=== PATIENT | male | born 1955 | race Caucasian/White ===

== ENCOUNTER 2018-12-28 10:32 | Inpatient (IN) ==
[2018-12-28 07:37] LABS: INR 0.95; PROTIME 12.7 Seconds (11.0-16.0)
[2018-12-28 07:38] LABS: PTT 25.6 Seconds (22.3-41.8)
--- NOTE | 2018-12-28 09:45 | Diag Imaging Result Doc PS360 ---
EXAM: CHEST-2 VIEWS 12/28/2018 HISTORY: POST BIOPSY INS/EXP TECHNIQUE: Inspiratory expiratory AP upright chest COMMENT: There is a small apical pneumothorax on the right. This is actually larger in appearance on the inspiration view than on the expiration. It measures 7 mm on the inspiration view. IMPRESSION: Small right apical pneumothorax. These findings were discussed with Dr. Laya Anna at 0935. Electronically signed by Eric Reza 12/28/2018 9:42 AM
--- NOTE | 2018-12-28 09:53 | Diag Imaging Result Doc PS360 ---
EXAM: CT GUIDED BIOPSY LUNG 12/28/2018 HISTORY: non small cell lung cancer TECHNIQUE: CT-guided biopsy of the right lower lobe. COMMENT: The risks and benefits of the procedure including the possibility of bleeding, infection, reaction to lidocaine, and pneumothorax was discussed with the patient and he agreed to the procedure. Following sterile preparation the skin posteriorly and administration of 1% lidocaine to the skin and deeper soft tissues, a coaxial 20-gauge Temno core biopsy needle was employed to obtain four cores from the lesion in the mid right lower lobe. Following the procedure the patient suffered a brief period of unresponsiveness which is most likely due to a vasovagal reaction, in any event it was at brief duration. The patient was given nasal cannula oxygen and plain radiographs were obtained demonstrating a small apical pneumothorax on the right. This finding was discussed with Dr. Laya Anna following the procedure. IMPRESSION: Successful right lower lobe biopsy complicated by small right pneumothorax. Electronically signed by Eric Reza 12/28/2018 9:51 AM
--- NOTE | 2018-12-28 11:09 | PROVIDER DOCUMENTATION ---
This chart was entered by Myriam Alvarez Scribe, acting as scribe for Leydi Allred MD. HPI-Syncope/Dizziness - General Chief Complaint: Syncope Stated Complaint: SYNCOPE Time Seen by Provider: 12/28/18 10:45 Source: patient, family () Allergies/Adverse Reactions: Patient Allergies Allergy/AdvReac Type Severity Reaction Status Date / Time levofloxacin [From Levaquin] Allergy MUSCLE Verified 12/28/18 10:40 STIFFNESS Home Medications: Home Medication List Medication Instructions Recorded Confirmed Last Taken Type ATORVAstatin [Lipitor] 40 mg PO DAILY 04/27/17 12/28/18 12/27/18 17:00 History 40 Albuterol Sulfate [Proair Hfa] 2 puff IH Q8H PRN PRN 04/27/17 12/28/18 12/27/18 20:00 History 2 Glipizide 5 mg PO DAILY 04/27/17 12/28/18 12/27/18 20:00 History 5 Iron Fum,Ps/Folic/Bcomp,C No.9 2 each PO DAILY 04/27/17 12/28/18 12/27/18 20:00 History [Integra Plus Capsule] 2 Paroxetine HCl 10 mg PO DAILY 04/27/17 12/28/18 12/27/18 20:00 History 10 Aspirin/Calcium Carbonate/Mag 325 mg PO DAILY 09/17/18 12/28/18 12/27/18 History [Aspirin Buffered 325 mg Tab] Cholecalciferol (Vit D3) [Vitamin 1,000 intl.units PO DAILY 09/17/18 12/28/18 12/27/18 20:00 History D3] 1000 Esomeprazole Magnesium [Nexium 20 mg PO DAILY 09/17/18 12/28/18 12/27/18 20:00 History 24Hr] 20 Budesonide/Formoterol Fumarate 2 puff PO BID 12/14/18 12/28/18 12/27/18 20:00 History [Symbicort 160-4.5 Mcg Inhaler] 2 Carvedilol 12.5 mg PO BID 12/14/18 12/28/18 12/27/18 20:00 History 12.5 Levothyroxine [Synthroid] 100 mcg PO DAILY 10/11/19 10/25/19 10/24/19 07:00 History 100 - History of Present Illness-Syncope/Dizzy Nature of Presenting Problem: 63 yowm was having a outpatient CT when he had a syncopal episode and became sob. post syncope it was seen pt has mild pneumothorax. pt on exam is nontoxic and in no distress Prior Episodes: reports: single episode today Onset/Duration: reports: just prior to arrival Timing: reports: improving Position/Activity at time of episode: reports: lying Context: reports: lost consciousness Loss of Consciousness: brief (seconds) Location of injury. (If syncope resulted in an injury.): reports: none Current Symptoms: reports: none/feels normal Recently Seen Here or By Another Healthcare Provider: Yes (was having outpatient CT when syncope occured) Review of Systems - Adult - REVIEW OF SYSTEMS - ADULT Constitutional: denies: chills, fever Eyes: reports: no symptoms reported Ears, Nose, Mouth & Throat: reports: no symptoms reported Cardiovascular: denies: chest pain, palpitations Respiratory: reports: see HPI, shortness of breath. denies: cough Gastrointestinal: denies: abdominal pain, diarrhea, nausea, vomiting Genitourinary: reports: no symptoms reported Musculoskeletal: reports: no symptoms reported Integumentary: reports: no symptoms reported Neurological: reports: see HPI, syncope. denies: dizziness/vertigo, headache/migraines, tremors Psychiatric: reports: no symptoms reported Endocrine: reports: no symptoms reported Hematologic/Lymphatic: reports: no symptoms reported Allergic/Immunologic: reports: no symptoms reported All Other Systems: Reviewed and Negative Past History - Adult - PAST MEDICAL HISTORY-ADULT Review of Records: reports: Old Records Reviewed, Nursing Assessment Review, Medications Reviewed, Social history reviewed & non-contributory. Major Childhood Illnesses: reports: denies history Cardiovascular: denies: HTN Respiratory: reports: COPD, cancer, pneumonia Gastrointestinal: reports: GERD Genitourinary: reports: kidney disease Musculoskeletal: reports: intervertebral disc disease Hand Dominance: Right Handed Neurological: reports: CVA, stroke deficits Psychiatric: reports: denies history Endocrine/Immune: reports: Diabetes Diabetes Type: Type 2 Other Conditions: reports: denies history - PRIOR SURGERIES/PROCEDURES Surgical/Procedure History: reports: reviewed, not pertinent - PRIOR HOSPITALIZATIONS Prior Hospitalizations: reports: none - IMMUNIZATION STATUS Childhood Immunizations: See Nurse Assessment Flu Vaccine: See Nurse Assessment - FAMILY HISTORY Family History: reviewed, not pertinent - SOCIAL HISTORY Smoking: quit greater than 1 year Substance Use: denies Living Situation: family Physical Exam-General - PHYSICAL EXAM-ADULT Initial Vital Signs Reviewed: Yes - CONSTITUTIONAL General Appearance: appears well, alert, no apparent distress (pt denies sob on exam and looks nontoxic in appearance), obese - EYES Eyes: PERRL/EOMI, pink conjunctivae - HEAD, EARS, NOSE, MOUTH & THROAT HENMT: moist mucous membranes - NECK Neck: non-tender, full range of motion, supple, normal inspection - RESPIRATORY Respiratory: chest non-tender, normal breath sounds - CARDIOVASCULAR Cardiovascular: normal peripheral pulses, regular rate, rhythm - GASTROINTESTINAL (ABDOMEN) Abdominal Exam: normal bowel sounds, non tender, soft - LYMPHATIC Lymphatic: no adenopathy - MUSCULOSKELETAL Back Exam: normal inspection, no CVA tenderness, no vertebral tenderness Extremity: normal range of motion, non-tender, normal gait, normal inspection - SKIN Integumentary: normal color, normal turgor, warm/dry - NEUROLOGIC Neurologic: grossly normal - PSYCHIATRIC Psych/Mental Status: normal mood/affect, normal thought content, normal thought process, oriented x 3 Progress - PLAN OF CARE/RESULTS Progress/Plan/Lab Results: Vital Signs - 8 hr 12/28/18 10:35 Temperature 97.9 F Pulse Rate 82 Respiratory Rate 16 Blood Pressure 167/117 O2 Sat by Pulse Oximetry 99 Laboratory Results - last 24 hr 12/28/18 10:53 POC Glucose 210 H D Orders Category Date Time Status Admit - [facility] Routine AdmDCTranf 12/28/18 11:06 Active Activity - Up Ad Georgie ORDERED Care 12/28/18 11:06 Active Neurological Check PRN Care 12/28/18 11:06 Active Vital Signs Order ROUTINE Care 12/28/18 11:06 Active Z-Document. for Tele Applied ORDERED Care 12/28/18 11:07 Active Diabetic Diet Diet 12/28/18 11:07 Active Albuterol 2.5MG/Ipratrop 0.5MG [Duoneb (A & A)] Med 12/28/18 11:30 Ordered 3 ml INH RTQ4H Morphine Med 12/28/18 11:06 Ordered 2 mg IV Q2H PRN PRN Ondansetron [Zofran] Med 12/28/18 11:06 Ordered 4 mg IV Q4H PRN PRN Aerosol Treatments Routine Oth 12/28/18 11:07 Active Aerosol Treatments Stat Oth 12/28/18 11:07 Active Oxygen Device Routine Oth 12/28/18 11:07 Active Telemetry [OM.EQ] Routine Oth 12/28/18 11:06 Active EKG [EKG] Stat Ther 12/28/18 10:39 Ordered - EKG 1 Time of EKG reading by physician:: 10:45 EKG Read and Signed by:: Leydi Allred EKG Interpretation (*Must complete 3 of following elements*): Normal Rate: 82 Rhythm: nsr Blanchard: normal QRS: normal MA Interval: normal ST Wave: normal - CONSULTS/PCP/HOSPITALIST Notification #1 *Consult/PCP/Hospitalist*: dr dalia ashley Time Discussed: 10:58 Consult Disposition: Admit Departure - Departure Date of Disposition Decision: 12/28/18 Time of Disposition Decision: 11:08 DIAGNOSIS: Vasovagal episode, Pneumothorax Disposition: ADMITTED INPATIENT 09 Certified Medical Emergency: Emergent Condition: Stable Referrals and Follow-Ups: Blake Liu MD [Primary Care Provider] - - Critical Care Note This patient required my direct & personal management of CC.: No Attestation - Physician/ BELLA Attestation Patient care was provided by Advanced Practice Provider:: No The physician spent face to face time with patient:: Yes Advanced Practice Provider documentation review:: Supervising physician onsite and consulted in the evaluation and care of this patient. The physician did have a face to face encounter with the patient. This chart was documented by the indicated scribe, (Myriam Alvarez Scribe) and accurately reflects the services I performed and decisions made by Chalino murray Mai Huu, MD, as attested by the provider's signature.
[2018-12-28] MEDS: DUONEB (A & A) INH SCH ×4 (11:49→23:07)
[2018-12-28] MEDS ORDERED: VENTOLIN HFA INH PRN (12:35)
--- NOTE | 2018-12-28 12:41 | EKG Report ---
Test Performed on : 12/28/2018 12:32:25 PM Test Reason : CAT CALL Blood Pressure : / mmHG Vent. Rate : 152 BPM Atrial Rate : 050 BPM P-R Int : 120 ms QRS Dur : 092 ms QT Int : 278 ms P-R-T Axes : 061 031 034 degrees QTc Int : 442 ms Critical Test Result: High HR Sinus bradycardia. with premature supraventricular complexes. and with occasional premature ventricul ar complexes. Otherwise normal ECG When compared with ECG of 28-DEC-2018 10:45, (Unconfirmed) premature ventricular complexes. are now present premature supraventricular complexes. are now present Vent. rate has increased BY 70 BPM Confirmed by Miki HAIDER, Reji Sanchez ([id number]) on 12/28/2018 3:08:29 PM
--- NOTE | 2018-12-28 12:41 | EKG Report ---
Test Performed on : 12/28/2018 10:45:07 AM Test Reason : SYNCOPE Blood Pressure : / mmHG Vent. Rate : 082 BPM Atrial Rate : 082 BPM P-R Int : 152 ms QRS Dur : 090 ms QT Int : 374 ms P-R-T Axes : 044 046 025 degrees QTc Int : 436 ms Normal sinus rhythm. Normal ECG When compared with ECG of 14-OCT-2015 10:50, Vent. rate has increased BY 29 BPM QT has lengthened Unconfirmed Result
[2018-12-28] MEDS ORDERED: LABETALOL IV ONE ×2 (12:44→13:00)
[2018-12-28] MEDS ORDERED: ATIVAN IV ONE (12:57)
--- NOTE | 2018-12-28 12:59 | HISTORY AND PHYSICAL ---
CHIEF COMPLAINT: Right pneumothorax. HISTORY OF PRESENT ILLNESS: This is a 63-year-old male with a history of small cell lung cancer that has been treated for several years. He recently has developed a new worsening mass in the right lung. He underwent CT-guided biopsy of this today and developed a small post biopsy pneumothorax. Currently, he complains of some pain at the needle insertion site, but denies generalized chest pain or shortness of breath. PAST MEDICAL HISTORY: 1. Small cell lung cancer. 2. Diabetes. 3. Chronic kidney disease. 4. COPD. PAST SURGICAL HISTORY: 1. Robotic partial nephrectomy. 2. Mediastinoscopy. 3. Bronchoscopy. ALLERGIES: Levaquin. HOME MEDICATIONS: 1. Albuterol. 2. Aspirin. 3. Lipitor. 4. Budesonide/formoterol. 5. Carvedilol. 6. Vitamin D3. 7. Nexium. 8. Glipizide. 9. Synthroid. 10. Paroxetine. SOCIAL HISTORY: He denies tobacco at this time, but does have an 80 pack-year history of smoking. He denies alcohol or illicit drug use. FAMILY HISTORY: Reviewed and noncontributory. SOCIAL HISTORY: Ten systems reviewed and negative except as noted above. PHYSICAL EXAMINATION: VITAL SIGNS: Temperature 97.9 degrees, pulse 82, respirations 16, blood pressure 167/117, O2 saturation 99%. GENERAL: Well-developed male in no distress who looks his stated age. HEENT: Normocephalic, atraumatic. Extraocular muscles intact. Pupils equal, round, reactive to light. Sclerae anicteric. NECK: Supple. No thyromegaly. CV: Regular rate and rhythm. RESPIRATORY: Clear bilateral breath sounds. No increased work of breathing or wheeze. ABDOMEN: Soft, nontender, nondistended. No organomegaly or mass. EXTREMITIES: No clubbing, cyanosis, or edema. SKIN: Warm and dry. No rash. MUSCULOSKELETAL: Moves all extremities equally and well. LABORATORY DATA: None. IMAGING: Post biopsy x-ray this morning shows a small 7 mm right apical pneumothorax. ASSESSMENT AND PLAN: A 63-year-old male with iatrogenic right pneumothorax after needle biopsy, history of lung cancer, new right lung mass. PLAN: Admit for observation. We will continue oxygen via nasal cannula for now. We will repeat chest x-ray this afternoon. If stable, I plan to discharge home. cc: Lyndon Frederick MD
[2018-12-28] MEDS ORDERED: ATIVAN IV PRN (13:19)
[2018-12-28] MEDS ORDERED: NS 1,000 ML ONE (13:29)
[2018-12-28] MEDS ORDERED: NS 1,000 ML IV ONE ×2 (13:50→13:52)
[2018-12-28 14:07] LABS: ALB/GLOB RATIO 1.3; ALBUMIN 3.9 g/dL (3.5-5.0); CREATININE 2.2 mg/dL (0.7-1.2); POTASSIUM 5.2 mmol/L (3.5-5.1); TOTAL BILIRUBIN 0.31 mg/dL (0.20-1.00); TOTAL PROTEIN 6.8 g/dL (6.3-8.3)
--- NOTE | 2018-12-28 14:24 | Diag Imaging Result Doc PS360 ---
EXAM: CT HEAD W/O CONTRAST 12/28/2018 HISTORY: stroke symptoms TECHNIQUE: This exam was performed using automated exposure control, adjustment of mA or kV according to patient size, and/or use of iterative reconstruction technique. COMMENT: There are lacunae present in the periventricular white matter of both parietal lobes. An particularly near the genu of the internal capsule on the right. Compared to the previous examination of 12/11/2013 there was previously some abnormal lucency in the caudate nucleus and internal capsule anteriorly on the right. The current findings may be residual from that insult. There is no evidence of bleed, mass effect, or abnormal extra-axial fluid collection. There are mucus retention cysts in the right maxillary sinus. The calvarium is intact. IMPRESSION: Chronic ischemic changes on the right. In view of the patient's symptoms and chronic changes, further evaluation with MRI may be desirable. Electronically signed by Eric Reza 12/28/2018 2:21 PM
[2018-12-28 14:42] LABS: BASO# 0.02 X1000 (0.0-0.2); BASO% 0.1 % (0.0-0.8); EOS# 0.11 X1000 (0.0-0.7); EOS% 0.6 % (0.0-10.0); HEMATOCRIT 39.9 % (42.0-52.0); HEMOGLOBIN 12.8 g/dL (14.0-18.0); IMM GRAN# 0.09 X1000 (0.0-0.04); IMM GRAN% 0.5 % (0.0-0.5); LYMPH% 9.7 % (20.5-51.1); MCH 31.6 PG (27-31); MCHC 32.1 g/dL (33-37); MCV 98.5 FL (81-99); MONO# 0.99 X1000 (0.11-0.59); MONO% 5.7 % (1.7-9.3); MPV 10.2 FL (7.4-10.4); NEUT# 14.54 X1000 (1.4-6.5); NEUT% 83.4 % (42.2-75.2); PLT 260 X1000 (130-400); RBC 4.05 XMIL (4.7-6.1); RDW 13.7 % (11.5-14.5); WBC 17.45 X1000 (4.8-10.8)
--- NOTE | 2018-12-28 14:44 | Diag Imaging Result Doc PS360 ---
EXAM: CHEST-2 VIEWS 12/28/2018 HISTORY: follow up pneumothorax TECHNIQUE: Inspiratory expiratory chest COMMENT: The right apical pneumothorax which was demonstrated at 0931 is measured at almost 8 mm on the inspiratory view which is slightly more than the 7 mm seen previously. The difference may not be significant however. There is increased opacification of the right lower lobe compared to the previous examination. This may be due to hemorrhage related to the recent biopsy. Alternately it may be due to atelectasis or pneumonia. IMPRESSION: Questionably increased small right pneumothorax. Increased density in the right lower lobe which may be due to pulmonary hematoma or atelectasis. Electronically signed by Eric Reza 12/28/2018 2:42 PM
[2018-12-28 14:49] LABS: PROTIME 13.3 Seconds (11.0-16.0)
[2018-12-28 14:50] LABS: PTT 23.9 Seconds (22.3-41.8)
[2018-12-28 15:08] LABS: URINE SOURCE CATH
[2018-12-28] MEDS: HUMALOG SUBQ SCH ×2 (15:08→21:11)
[2018-12-28 15:11] LABS: BILIRUBIN URINE NEGATIVE (NEGATIVE); BLOOD URINE NEGATIVE (NEGATIVE); COLOR YELLOW; GLUCOSE URINE NEGATIVE (NEGATIVE); KETONE URINE NEGATIVE (NEGATIVE); LEUKOCYTES URINE NEGATIVE (NEGATIVE); NITRITE URINE NEGATIVE (NEGATIVE); PROTEIN URINE 50 mg/dL (NEGATIVE); SP GRAVITY URINE 1.011; TURBIDITY URINE CLEAR (CLEAR); UROBILINOGEN URINE NORMAL (NORMAL)
[2018-12-28 15:13] LABS: UR EPITHELIAL CELLS <10 /HPF (<10); URINE BACTERIA NEGATIVE /HPF; URINE RBC <10 /HPF (<10); URINE WBC <10 /HPF (<10)
[2018-12-28] MEDS ORDERED: CEREBYX IV ONE (15:14)
[2018-12-28] MEDS ORDERED: VANCOMYCIN IV PER PHARMACY MISC SCH (15:30)
[2018-12-28] MEDS ORDERED: LABETALOL IV PRN (15:35)
[2018-12-28 15:57] LABS: CK INDEX 8.4 (0.0-2.5); CK-MB 17.82 ng/mL (0.0-5.0)
--- NOTE | 2018-12-28 15:57 | PROGRESS NOTE ---
DATE: 12/28/2018 This is an addendum to the consult note dictated by the nurse practitioner. I agree with most components of history, physical, assessment, and recommendations HISTORY OF PRESENT ILLNESS: A CAT call was called on Mr. Gonzalez as he had [id number] three episodes of seizure lasting for several seconds. I evaluated him at the bedside. He was given 2 mg of Ativan one time. When I saw him, he had already received a dose of intravenous labetalol. After which, though the initial blood pressure was more than 180 systolic, after labetalol 10 minutes later, his blood pressure had dropped down to 80 systolic, so I ordered 1 L of normal saline. Considering that he was postictal and was critical, I decided not to get the CAT scan initially and rather transfer him to ICU to stabilize him. After coming to the ICU, his blood pressure had increased to 160 and he was taken down to CT scan. The CT scan had detected old right-sided parietal lobe especially around internal capsule stroke. When I was evaluating him at the bedside, he had another generalized tonic-clonic seizure without any focality. I gave him another 2 mg of intravenous Ativan and ordered intravenous fosphenytoin. On my brief examination, he did have extensor response to Babinski on the left foot. He also had spasticity affecting mainly the left upper and left lower extremity. His pupils are bilaterally equal and reacting. I could see that he has flattening of the left-sided nasolabial fold. I discussed with his that this could possibly be a stroke leading to seizure. ASSESSMENT: 1. Recurrent generalized tonic-clonic seizure due to new vs old CVA. 2. Suspected acute right hemispheric cerebrovascular accident. 3. Lung cancer, status post lung biopsy and right-sided pneumothorax. 4. Chronic obstructive pulmonary disease with suspected aspiration pneumonitis. 5. Insulin-dependent diabetes mellitus. 6. Chronic kidney disease stage 3. 7. Profound acidosis as evidenced on basic metabolic panel. PLAN: 1. Give stat intravenous fosphenytoin and start the patient on phenytoin loading. Seizure precautions. 2. Follow up serial BMP. Start patient on bicarbonate drip. Allow permissive hypertension for at least 24 hours. 3. We will try to obtain MRI, hopefully on Monday. Currently, he is too unstable to go down for an MRI. CVA with postictal status is a relative contraindication for Alteplase. In any case, my suspicion is that his initial syncope episode in biopsy room was likely the onset of CVA and by the time he got his CT scan and I ruled out any intracranial hemorrhage as well as coagulopathy, he was out of the alteplase window. Plan of care discussed with the patient's at bedside. Her questions have been answered. CRITIC CARE TIME: More than 30 minutes of critical care time was spent taking care of this patient. cc: Alhaji Kelsey MD MTDKait
[2018-12-28] MEDS ORDERED: CEREBYX 1,500 MG in NS 100 ML IV ONE (16:00)
[2018-12-28] MEDS: ZOSYN 2.25 GM in NS 50 ML IV SCH ×2 (16:09→21:11)
[2018-12-28] MEDS: SODIUM BICARBONATE 8.4% 150 MEQ in D5W 1,000 ML IV SCH (16:31)
--- NOTE | 2018-12-28 16:47 | CONSULTATION ---
DATE OF CONSULTATION: 12/28/2018 PRIMARY CARE PHYSICIAN: Dr. Liu. ONCOLOGIST: Dr. Anna. GENERAL SURGEON: Dr. Frederick. CHIEF COMPLAINT: Patient had a outpatient lung biopsy on the right causing a small right pneumothorax, was admitted and began on arrival to the floor having seizures and became unresponsive with a blood pressure of 68/43. We were consulted for medical management. HISTORY OF PRESENTING ILLNESS: This is a 63-year-old male who presented to [facility] initially for an outpatient CT-guided biopsy of his right lung. During the procedure this morning a CAT call was initiated when patient began having difficulty breathing. Chest x-ray showed a small postop biopsy pneumothorax, was admitted to surgery initially, once he arrived up to the surgical floor he began having seizure-like activity x3 different episodes, became unresponsive, unable to answer questions. Blood pressure dropped and got as low as 68/43. He is being transferred to the intensive care unit for further evaluation and treatment and we will follow this patient throughout the remainder of his hospitalization. PAST MEDICAL HISTORY: Of small cell lung cancer, diabetes, chronic kidney disease, COPD, hypothyroidism. PAST SURGICAL HISTORY: Of a robotic partial nephrectomy, mediastinoscopy and a bronchoscopy. ALLERGIES: Levaquin. HOME MEDICATIONS: He takes ProAir 2 puff inhalation q.8 hours p.r.n., aspirin 325 mg p.o. daily, Lipitor 40 mg p.o. daily, Symbicort 160/4.5 two puffs b.i.d., Coreg 12.5 mg p.o. b.i.d., vitamin D3 1000 units p.o. daily, esomeprazole 20 mg p.o. daily, glipizide 5 mg p.o. daily, an iron with folic and B complex 2 tablets p.o. daily, Synthroid 100 mcg p.o. daily and paroxetine 10 mg p.o. daily. FAMILY HISTORY: Reviewed and noncontributory. SOCIAL HISTORY: He currently was living with family. Denies any tobacco use at this time, does have an 80 pack a year history of smoking. Denied any alcohol or illicit drug use. LABORATORY DATA: We will obtain a CBC, CMP, PT and INR, PTT, urinalysis, CT of the head without contrast, those will be reviewed when resulted. REVIEW OF SYSTEMS: Unable to obtain from patient at this time as he is unresponsive status post his seizure. PHYSICAL EXAMINATION: On arrival patient had temperature of 97.9 degrees, pulse 82, respirations 16, blood pressure was 167/117, did get as high as 216/121 then began having hypotension and dropped to 86/54, currently at 68/43.General: This is a 63-year-old male lying in the bed unable to answer any questions at this time. Reviewed medical records to obtain information and family also at bedside. HEENT: Normocephalic, atraumatic. Normal ENT inspection. Oropharynx and nares are clear. Pupils were equal, round, reactive to light. Unable to assess extraocular movements at this time. Neck: Normal inspection, normal range of motion. Lungs: Clear to auscultation bilaterally. Equal lung expansion, chest wall movement. Heart: Regular rate and rhythm. No murmurs, rubs, or gallops. Abdomen: Soft, nontender, nondistended. Bowel sounds are present x4 quadrants. Musculoskeletal: Earlier was moving all extremities well per previous H and P documentation by the surgeon. Unable to assess at this time due to his unresponsiveness status post a seizure. Neurological: Unable to obtain a neuro exam at this time. ASSESSMENT: 1. Status post right lung biopsy with a 7 mm right apical pneumothorax. 2. Seizure activity. 3. Hypotension. 4. History of small cell lung cancer. PLAN: We are going to transfer this patient to the intensive care unit, obtain a CBC, CMP, PT with INR, PTT, urinalysis, CT of the head without contrast, we are giving him a liter of fluids bolus now and will repeat if blood pressure does not improve. If after the 2nd unit bolus he does not improve on his blood pressure will start a dopamine or Levophed drip at that time. We also consulted his oncologist, Dr. Anna. Further orders after seen by attending and by consultants. We will continue to follow this patient throughout his hospitalization. Thank you for opportunity to follow this patient. Dictated by ASAD Chandra for Ashanti Kelsey MD cc: MD Ashanti Corona MD I AGREE WITH THE ABOVE MENTIONED HISTORY, ASSESSMENT AND PLAN. A DETAILED ADDENDUM REPORT HAS BEEN DICTATED BY ME. ASHANTI CELIS
[2018-12-28] MEDS ORDERED: VANCOMYCIN 2,300 MG in NS 500 ML IV ONE (17:00)
--- NOTE | 2018-12-28 17:06 | HEMO/ONC CONSULTATION ---
DATE: 12/28/2018 REQUESTING PHYSICIAN: Dr. Kelsey. REASON FOR CONSULTATION: Lung cancer. HISTORY OF PRESENT ILLNESS: Mr. Gonzalez is a 63-year-old gentleman who is well known to me for his history of stage 3 lung cancer that was treated with chemo and radiation, followed by one year of adjuvant or consolidation immunotherapy. Most recently he has been noted to have an increasing PET avid lung lesion. He is suspected to have a recurrence of his lung cancer. Bronchoscopic biopsies were previously done and nondiagnostic. After discussion of risks and side effects in the clinic, the patient was set up today for a CT guided biopsy of his right lower lobe lung lesion. He had the biopsy, which he tolerated well. Per discussion with Dr. Reza he had a vagal episode after the biopsy from which he quickly recovered. Per his sister's report, he then subsequently had some right-sided hand weakness and confusion. He was taken to the emergency room for observation in the setting of a 7 mm pneumothorax. He arrived on the floor and very quickly had an episode of seizure like activity and alteration in consciousness. He was given IV Ativan and is being stabilized at the time of consultation for transfer to the ICU. Per his sister, he was reporting some shortness of breath as well. PAST MEDICAL HISTORY: History of lung cancer diagnosed in 2017, status post chemoradiation, hypertension, diabetes, atrial fibrillation, iron deficiency, COPD, GERD, hypothyroidism, stroke in 2013, vitamin D deficiency, BPH, CKD, hypercholesterolemia. PAST SURGICAL HISTORY: Mediastinoscopy and biopsy in 2017. SOCIAL HISTORY: The patient was a former smoker. He denies any alcohol or illicit drug use. The chart was reviewed in the clinic previously. FAMILY MEDICAL HISTORY: Brother in his 60s with colon cancer and another brother in his 40s of pancreatic cancer. ALLERGIES TO MEDICATIONS: Reviewed per the chart. REVIEW OF SYSTEMS: Unable to be obtained due to the patient being sedated at the time of consultation. PHYSICAL EXAMINATION: Vital Signs: Temperature 98.6, pulse 77, blood pressure 87/46, after IV Ativan, respiratory rate is 20, 02 saturation is 98% on 2 liters via nasal cannula. Gen: Sedated man with multiple nurses and patient's sister at bedside. Eyes: Sclera Anicteric CV: RRR no m/r/g Pulm: Upper airway noise but equal bilateral breath sounds. No wheezing Gi: Abd soft, NT, ND Ext: No clubbing cyanosis or edema Neuro: Pt is sedated and responsive to touch,pain. Labs xrays reviewed 1. Stage III NSCLC: Pt with suspected intrathoracic recurrence s/p biopsy this am. No recent chemotherapy or radiation. No known evidence of distant metastatic disease. F/u on biopsy results. 2. New onset seizure activity versus stroke: Stat head CT. Continue Ativan. Transfer to ICU for monitoring. 3. PTX, small; Repeat CXR. O2 support. Monitor sats. cc: MD Alhaji Lawrence MD [facility]
[2018-12-28] MEDS: MORPHINE IV PRN (17:42)
[2018-12-28 18:13] LABS: BE -4.7 mmoll (-2.0-2.0); BLOOD TYPE VENOUS; PCO2(98.6) 41 mmHg (40-60); PO2(98.6) 26 mmHg (30-55); SAMPLE BLOOD; SAO2 50.2 % (40.0-85.0); pH(98.6) 7.32 (7.32-7.43)
[2018-12-28 18:37] LABS: CALCIUM 8.3 mg/dL (8.8-10.2); POTASSIUM 4.8 mmol/L (3.5-5.1)
[2018-12-28] MEDS: SYMBICORT 160/4.5 MICROGM INHALER INH SCH (19:32)
[2018-12-28] MEDS ORDERED: DILANTIN IV SCH (20:00)
[2018-12-28] MEDS ORDERED: COREG PO SCH (21:00)
[2018-12-28] MEDS: ATIVAN IV PRN (21:06)
--- NOTE | 2018-12-28 21:23 | Diag Imaging Result Doc PS360 ---
EXAM: CHEST-PORTABLE 12/28/2018 HISTORY: Follow up pneumothorax TECHNIQUE: AP portable at 2106 COMMENT: There is continued opacification in the right parahilar and lower lobe regions. This appears slightly worse than on the previous study at 1430. There is still a small apical pneumothorax measuring between 12 and 6 mm in thickness at the apex. This does not on average appear to be significantly larger than on the previous studies. The heart size is at the upper limits of normal in the pulmonary vascularity is somewhat prominent. IMPRESSION: 1. Stable pneumothorax. 2. Right lower lobe opacity which may be result of the recent biopsy and pulmonary hematoma. The possibility of mild pulmonary edema cannot be excluded. Electronically signed by Eric Reza 12/28/2018 9:20 PM
[2018-12-28] MEDS: NEO-SYNEPHRINE 50 MG in NS 250 ML IV SCH (22:55)
--- NOTE | 2018-12-28 23:46 | EKG Report ---
Test Performed on : 12/28/2018 11:14:16 PM Test Reason : FOllow up EKG Blood Pressure : / mmHG Vent. Rate : 114 BPM Atrial Rate : 114 BPM P-R Int : 172 ms QRS Dur : 076 ms QT Int : 318 ms P-R-T Axes : 056 063 045 degrees QTc Int : 438 ms Sinus tachycardia. Low voltage QRS Nonspecific ST abnormality Abnormal ECG When compared with ECG of 28-DEC-2018 12:32, premature ventricular complexes. are no longer present premature supraventricular complexes. are no longer present ST elevation now present in Inferior leads Confirmed by Reji Livingston MD ([id number]) on 12/29/2018 7:45:13 AM
[2018-12-29] MEDS: ATIVAN IV PRN (01:34)
[2018-12-29] MEDS ORDERED: HALDOL IV STA (02:56)
[2018-12-29] MEDS ORDERED: HALDOL IV PRN (02:57)
[2018-12-29] MEDS ORDERED: HALDOL ONE (03:06)
[2018-12-29] MEDS: DUONEB (A & A) INH SCH ×6 (03:15→23:07)
[2018-12-29] MEDS: ZOSYN 2.25 GM in NS 50 ML IV SCH ×4 (03:59→20:31)
[2018-12-29] MEDS: HUMALOG SUBQ SCH ×4 (03:59→20:31)
[2018-12-29] MEDS ORDERED: DILANTIN IV SCH (04:00)
[2018-12-29] MEDS ORDERED: NS IV SCH (04:00)
[2018-12-29 06:10] LABS: ALLEN TEST YES; BE -3.5 mmoll (-3.0-3.0); BLOOD TYPE ARTERIAL; HCO3-(ACT) 22.2 mmoll (20.0-26.0); METHB 1.1 % (0.0-1.5); O2(CT) 18.3 mL/dL (15.0-23.0); O2HB 97.5 % (95.0-99.0); PCO2(98.6) 32 mmHg (35-45); PO2(98.6) 145 mmHg (60-100); SAMPLE BLOOD; SAO2 99.9 % (95.0-100.0); SRATE 14 BPM; THB 13.2 g/dL (11.5-17.4); pH(98.6) 7.41 (7.35-7.45)
[2018-12-29 06:11] LABS: MODALITY BI PAP
[2018-12-29 06:55] LABS: ALB/GLOB RATIO 0.9; ALBUMIN 3.2 g/dL (3.5-5.0); CALCIUM 7.7 mg/dL (8.8-10.2); CREATININE 2.3 mg/dL (0.7-1.2); MAGNESIUM 1.4 mg/dL (1.5-2.7); POTASSIUM 5.5 mmol/L (3.5-5.1); TOTAL BILIRUBIN 0.48 mg/dL (0.20-1.00); TOTAL PROTEIN 6.9 g/dL (6.3-8.3)
[2018-12-29] MEDS ORDERED: LASIX IV ONE (07:00)
[2018-12-29] MEDS ORDERED: PRILOSEC PO SCH (07:00)
--- NOTE | 2018-12-29 07:19 | Diag Imaging Result Doc PS360 ---
EXAM: CHEST-PORTABLE HISTORY: Follow up pneumothorax TECHNIQUE: Single view COMPARISON: 12/28/2018 FINDINGS: There is a small right-sided pneumothorax. This measures less than 1 cm superiorly. There are dense bilateral infiltrates. These are more pronounced than on the prior study. The heart is mildly enlarged. No pleural effusions identified. IMPRESSION: Interval worsening in the dense bilateral infiltrates Electronically signed by Caleb Sabillon 12/29/2018 7:16 AM
[2018-12-29] MEDS: SYMBICORT 160/4.5 MICROGM INHALER INH SCH ×2 (07:43→19:02)
[2018-12-29] MEDS: MAGNESIUM SULFATE 2 GM/S.W.I. 2 GM/50 ML IVPB IV SCH ×2 (07:51→10:23)
[2018-12-29] MEDS: SODIUM BICARBONATE 8.4% 150 MEQ in D5W 1,000 ML IV SCH (07:52)
[2018-12-29] MEDS: MORPHINE IV PRN ×2 (08:07→17:29)
[2018-12-29] MEDS: HALDOL IV PRN ×3 (08:08→20:31)
[2018-12-29 08:48] LABS: BASO# 0.01 X1000 (0.0-0.2); BASO% 0.1 % (0.0-0.8); HEMATOCRIT 40.1 % (42.0-52.0); HEMOGLOBIN 13.1 g/dL (14.0-18.0); IMM GRAN# 0.05 X1000 (0.0-0.04); IMM GRAN% 0.3 % (0.0-0.5); LYMPH# 0.89 X1000 (1.2-3.4); LYMPH% 6.2 % (20.5-51.1); MCH 31.5 PG (27-31); MCHC 32.7 g/dL (33-37); MCV 96.4 FL (81-99); MONO# 0.97 X1000 (0.11-0.59); MONO% 6.7 % (1.7-9.3); MPV 10.5 FL (7.4-10.4); NEUT% 86.7 % (42.2-75.2); PLT 225 X1000 (130-400); RBC 4.16 XMIL (4.7-6.1); RDW 13.8 % (11.5-14.5); WBC 14.42 X1000 (4.8-10.8)
[2018-12-29] MEDS ORDERED: SYNTHROID IV ONE (08:50)
[2018-12-29] MEDS ORDERED: SODIUM CHLORIDE 0.9% INJ ONE (08:50)
[2018-12-29 08:59] LABS: LYMPHS 10 % (21-51); MONO 2 % (1-9); SEGS 88 % (42-75)
[2018-12-29] MEDS ORDERED: HEMOCYTE PLUS CAPSULE PO SCH (09:00)
[2018-12-29] MEDS ORDERED: GLUCOTROL PO SCH (09:00)
[2018-12-29] MEDS ORDERED: SYNTHROID PO SCH (09:00)
[2018-12-29] MEDS ORDERED: CALCIUM CARBONATE PO SCH (09:00)
[2018-12-29] MEDS ORDERED: ASPIRIN PO SCH (09:00)
[2018-12-29] MEDS ORDERED: LIPITOR PO SCH (09:00)
[2018-12-29] MEDS ORDERED: PAXIL PO SCH (09:00)
[2018-12-29] MEDS ORDERED: MAG PO SCH (09:00)
--- NOTE | 2018-12-29 09:02 | PROGRESS NOTE ---
DATE: 12/29/2018 INTERVAL HISTORY: He was hypotensive overnight and so phenylephrine was started on him. He has had wide fluctuations on his blood pressure with systolic dropping to as low as 80s on phenylephrine and then a few seconds jumping up to 160, so the titration of phenylephrine was a challenge. He also was becoming progressively hypoxic and did not do well on non-rebreather mask, so he was started on BiPAP. Echocardiogram and ultrasound carotids were pending. Troponin was showing down trend. EKG did not have evidence of acute ST changes. SUBJECTIVE: He is alert, confused and fidgety, moving the right upper and lower extremity more than the left upper and lower extremity. He is currently on BiPAP, has a urine catheter. He is not been able to engage in meaningful conversation. VITAL SIGNS: Temperature 98.1 degrees, pulse 118, respiratory rate 20, blood pressure 130/90. He is saturating 98% on 100% BiPAP. PHYSICAL EXAMINATION: General: He is fidgety. HEENT: Facially asymmetry is difficult to appreciate since he is fidgety and not allowing proper examination. He may have right-sided ptosis. Respiratory: He does have inspiratory crackles bilateral infrascapular regions and mild end-expiratory wheezes. Cardiovascular: S1, S2 normal, regular. No murmur, rub or gallop. Abdomen: Obese, soft, nontender. Extremities: No lower extremity edema. Neurological: Right- sided ptosis possibly. He is moving right upper and lower extremity more than left upper and lower extremity. He is alert but confused, so neurological examination is limited. LABORATORY DATA: CBC is pending. ABG today is suggestive of normal pH, low pCO2, adequate oxygenation on 100% BiPAP. BMP suggestive of hyperkalemia, elevated BUN and creatinine. He also had a troponin which increased up to 0.532 and since then has been downtrending. He also had lactic acidosis which has been fluctuating. MICROBIOLOGY: No data. IMAGING: Chest x-ray today morning suggests interval worsening in the dense bilateral infiltrate. ASSESSMENT AND PLAN: 1. Recurrent generalized tonic-clonic seizure, likely due to new versus old cerebrovascular accident without prior history of seizure. He was loaded with fosphenytoin and I will start him on maintenance phenytoin intravenously. Keep him on seizure and aspiration precautions and keep him on n.p.o. except medications. I will check a phenytoin level after 24 hours. 2. Suspected acute right hemispheric cerebrovascular accident with prior history of right hemispheric cerebrovascular accident. I will follow up with ultrasound carotid, echocardiogram and will consider either repeat head CT or MRI in the near future based on his agitation. I will start him on rectal aspirin. Enteral access has been difficult to obtain. In the future, I will consider starting him on high-dose atorvastatin. I will also consider Neurology evaluation on Monday. 3. Acute encephalopathy of unclear etiology. I would consider repeat head CT in the near future. This could be a prolonged postictal phase versus continuous seizure and accordingly, I may consider requesting a transfer to [facility] for continuous EEG monitoring if his mental status does not improve. Meanwhile, keep him on intravenous haloperidol and lorazepam as needed. 4. Acute hypoxic respiratory failure, likely due to acute pulmonary edema. There is also a possibility of pulmonary contusion post biopsy. There is also a small pneumothorax. I will keep him on BiPAP to maintain saturation more than 94% as tolerated and will consult Pulmonology. I will also keep him on intravenous vancomycin and Zosyn with close monitoring of kidney function for suspected sepsis due to aspiration pneumonia. 5. Elevated troponins: EKG now shows anterolateral ST T changes. No known h/o CAD. I will keep him on rectal aspirin a day. 5. History of chronic obstructive pulmonary disease. Continue albuterol ipratropium nebulization, budesonide, formoterol inhaler. 6. Disposition. Patient's condition is critical. More than 30 minutes of critical care time was spent taking care of the patient. Yesterday, plan of care discussed with the patient's . 7. History of recurrent lung cancer. Hematology Oncology on board. Though there is a possibility that he may have a brain metastasis, it is not completely excluded at the moment, which could have caused new onset seizures. ADDENDUM: I reevaluated patient later during the day. He is more alert and talkative. He denies known h/o CAD or current chest pain. He was able to tell me a little bit about his h/o lung cancer and that it was small cell. cc: MD VIMAL Salazar
[2018-12-29] MEDS: VITAMIN D PO SCH (09:31)
[2018-12-29] MEDS ORDERED: ASPIRIN PR ONE (10:50)
[2018-12-29] MEDS: DILANTIN IV SCH ×2 (11:48→20:31)
--- NOTE | 2018-12-29 12:58 | Diag Imaging Result Doc PS360 ---
EXAM: CT HEAD W/O CONTRAST HISTORY: left lower extremity paralysis TECHNIQUE: CT head without contrast COMPARISON: 12/28/2018 FINDINGS: No parenchymal hemorrhage. No epidural or subdural hematoma. No subarachnoid hemorrhage old right infarct. This is unchanged. No mass identified on this noncontrasted exam. No hydrocephalus. No sinus opacification. IMPRESSION: No hemorrhage. No change. This exam was performed using automated exposure control, adjustment of mA or kV according to patient size, and/or use of iterative reconstruction technique. Electronically signed by Caleb Sabillon 12/29/2018 12:55 PM
--- NOTE | 2018-12-29 13:07 | Diag Imaging Result Doc PS360 ---
EXAM: CT THORAX W/O CONTRAST HISTORY: resp. failure TECHNIQUE: CT chest without contrast COMPARISON: 11/26/2018 FINDINGS: Motion degrades image quality. There are small pleural effusions. Prominent atherosclerosis. No aortic aneurysm. No cardiomegaly. There are multiple calcified mediastinal and hilar lymph nodes. There is bibasilar pneumonia with air bronchograms as well as atelectasis. There is a 2.8 cm air-filled cavity posteriorly in the right upper lobe. Questionable sliver of a pneumothorax on the right. IMPRESSION: Bibasilar pneumonia with atelectasis and small pleural effusions and a questionable tiny right pneumothorax. This exam was performed using automated exposure control, adjustment of mA or kV according to patient size, and/or use of iterative reconstruction technique. Electronically signed by Caleb Sabillon 12/29/2018 1:04 PM
[2018-12-29] MEDS: LOVENOX SUBQ SCH (13:36)
[2018-12-29] MEDS: PROTONIX IV SCH (13:36)
--- NOTE | 2018-12-29 13:38 | EKG Report ---
Test Performed on : 12/29/2018 11:46:03 AM Test Reason : elevated troponin Blood Pressure : / mmHG Vent. Rate : 107 BPM Atrial Rate : 107 BPM P-R Int : 170 ms QRS Dur : 094 ms QT Int : 376 ms P-R-T Axes : 057 054 000 degrees QTc Int : [address] & T wave abnormality, consider anterolateral ischemia Abnormal ECG When compared with ECG of 28-DEC-2018 23:14, Questionable change in QRS duration Confirmed by Reji Livingston MD ([id number]) on 12/30/2018 7:26:59 AM
--- NOTE | 2018-12-29 13:46 | GENERAL SURGERY PROGRESS NOTE ---
DATE: 12/29/2018 SUBJECTIVE: The patient has had labile blood pressures overnight. The nurses tell me that he is more alert and interactive now. OBJECTIVE: Vital Signs: Temperature 97.5 degrees, pulse 109, respirations 29, blood pressure 147/99, O2 saturation 97%. General: He is awake, somewhat agitated and fidgety. He does follow a few commands. He will squeeze my hand. CV: Tachycardic. GI: Soft, nontender. Respiratory: Bilateral coarse breath sounds. Neuro: He squeezes both hands but is stronger in the right hand than the left. He does wiggle both feet and toes but appears more vigorous on the right. LABORATORY: White cell count 14,000, hemoglobin 13, hematocrit 40. Electrolytes reviewed and notable for BUN 26, creatinine 2.3, potassium 5.5. IMAGING: His chest x-ray today shows a stable small apical right pneumothorax. His chest CT shows only a very tiny right pneumothorax, but he does have bibasilar pneumonia. Head CT again was negative for hemorrhage or other acute abnormality. ASSESSMENT AND PLAN: A 63-year-old male with iatrogenic right pneumothorax from lung biopsy. This appears to be resolving. He has subsequently had neurologic changes and seizure. It is unclear of the etiology yet, stroke is certainly a possibility. Currently, there are no surgical plans. I will follow along at a distance and be available as needed. cc: MD Alhaji Saucedo MD
--- NOTE | 2018-12-29 15:43 | ECHO REPORT ---
ORDER DATE: 12/29/2018 INDICATION: Hypotension, hypoxia, syncope, lung cancer. FINDINGS: 1. This is an extremely difficult study with poor delineation of the endocardial borders. An estimation of the ejection fraction cannot be performed secondary to limited quality. Notably, the apex does not appear to be moving well, but again difficult to estimate the EF. Optison contrast was not used. 2. There is no mitral valve prolapse. Mild mitral regurgitation. 3. Mild tricuspid regurgitation. Insufficient data to estimate RV systolic pressure. 4. Aortic valve was not well visualized, but Doppler evaluation which was limited, did not appear to show stenosis. 5. No pericardial effusion identified. 6. The chamber sizes appear relatively normal. 7. Again, a very poor quality study. cc: MD Chyna Joiner CRNP Siddharth Patel, MD
--- NOTE | 2018-12-29 16:55 | PULMONOLOGY CONSULTATION ---
DATE: 12/29/2018 REQUESTING PHYSICIAN: Dr. Kelsey. REASON FOR CONSULTATION: Pulmonary hematoma with acute hypoxemic respiratory failure. HISTORY OF PRESENT ILLNESS: Mr. Gonzalez is a 63-year-old white male with a history of tobacco use who was diagnosed with stage III lung cancer in 2017. This was not diagnosed here and specifics of the diagnosis are not known. The patient underwent chemotherapy and radiation under the direction Dr. Marcela Anna. By chart notes, the patient has had increasing activity on his PET scan in the right lung base. The patient underwent bronchoscopy per Dr. Carroll on 12/17/2018, which was nondiagnostic. He underwent a CT-guided biopsy yesterday morning. Following the procedure, he had brief episode of unconsciousness. The patient had a small pneumothorax. He subsequently had seizures on the floor along with hypotension. He was transferred to the ICU. He has required vasopressors for hypotension. He has had increasing oxygen requirements and was placed on BiPAP. Upon my arrival, he was taken off the BiPAP. He is conversant now. He is oriented. He cannot move his left lower extremity. PAST MEDICAL HISTORY: 1. Lung cancer as per HPI. 2. History of prior stroke with weakness in the left hand. 3. COPD. 4. Gastroesophageal reflux disease. 5. Chronic kidney disease. 6. Diabetes mellitus. 7. History of atrial fibrillation. 8. Dyslipidemia. 9. Partial nephrectomy for a benign cyst. SOCIAL HISTORY: The patient has an [id number] history for tobacco. No alcohol use. FAMILY HISTORY: Noncontributory current presentation. REVIEW OF SYSTEM: Limited due to current physical status. PHYSICAL EXAMINATION: Reveals a chronically ill-appearing male who appears older than his stated age of 63. BP 153/85, heart rate 108, respiratory rate 34, oxygen saturation 98% on nonrebreather.HEENT: Pupils are equal and reactive. Oropharynx appears clear. Neck: Supple. Chest: Reveals decreased breath sounds both lung bases. Cardiac: S1, S2. Abdomen: Soft. Extremities: Reveal slight coolness to the touch. LABORATORIES: Troponins have been elevated. Initial troponin yesterday was 0.304 and increased to 0.519 last evening. Arterial blood gas yesterday revealed a lactate of 4.0. Arterial blood gas today reveals a pH 7.41, pCO2 of 32, PO2 of 145. Urgent CAT scan ordered by this practitioner reveals bibasilar pneumonia with tiny right pneumothorax. Repeat CT scan of the head reveals no acute changes. IMPRESSION: A 63-year-old status post treatment for lung cancer with increasing activity on PET scan, status post CT-guided biopsy. The patient has: 1. Small iatrogenic pneumothorax which clinically is not currently significant. 2. Seizures. 3. Acute hypoxemic respiratory failure. 4. Aspiration pneumonia. 5. Acute stroke with paralysis left lower extremity. 6. Myocardial ischemia with increased troponin levels. DISCUSSION: 63-year-old with problems outlined above. The patient is critically ill with multiple issues outlined above. RECOMMENDATIONS: 1. Aspirin this morning. 2. Continue oxygen for hypoxemic respiratory failure. The patient is at high risk for intubation and mechanical ventilation. 3. Initiate heparin for stroke and for myocardial ischemia. 4. Routine bronchodilators. 5. Routine gastric acid suppression. 6. Insulin for hyperglycemia. 7. Overall prognosis is guarded. TIME SPENT: Critical care management 1 hour. cc: MD Alhaji Fischer MD
[2018-12-29 18:54] LABS: CALCIUM 7.7 mg/dL (8.8-10.2); CREATININE 2.5 mg/dL (0.7-1.2); POTASSIUM 3.8 mmol/L (3.5-5.1)
[2018-12-29] MEDS: NEO-SYNEPHRINE 50 MG in NS 250 ML IV SCH (20:31)
[2018-12-30] MEDS: HALDOL IV PRN ×3 (01:15→16:57)
[2018-12-30] MEDS: HUMALOG SUBQ SCH ×4 (02:15→20:01)
[2018-12-30] MEDS: LOVENOX SUBQ SCH ×2 (02:15→12:19)
[2018-12-30] MEDS: DUONEB (A & A) INH SCH ×6 (03:30→23:30)
[2018-12-30] MEDS: ZOSYN 2.25 GM in NS 50 ML IV SCH ×4 (04:17→20:03)
[2018-12-30] MEDS: DILANTIN IV SCH ×3 (04:17→20:01)
[2018-12-30] MEDS: VANCOMYCIN 1,850 MG in NS 500 ML IV SCH (05:49)
[2018-12-30] MEDS ORDERED: NS IV SCH (06:00)
[2018-12-30] MEDS ORDERED: DILANTIN IV SCH ×2 (06:00)
[2018-12-30] MEDS: SYNTHROID IV SCH (06:15)
[2018-12-30] MEDS: MORPHINE IV PRN ×4 (06:26→17:17)
--- NOTE | 2018-12-30 07:03 | Diag Imaging Result Doc PS360 ---
EXAM: CHEST-PORTABLE 12/30/2018 HISTORY: dyspnea TECHNIQUE: AP portable at 0513 COMMENT: There is perihilar alveolar opacity bilaterally and increased interstitial opacity consistent with pulmonary edema. The lungs are not as well-expanded as on 12/29/2018. There is apparently some pleural fluid on the right which has occupied the space which was previously a small apical pneumothorax on the right. IMPRESSION: Pulmonary edema. Small right pleural effusion. Electronically signed by Eric Reza 12/30/2018 7:01 AM
[2018-12-30 07:05] LABS: BASO# 0.01 X1000 (0.0-0.2); BASO% 0.1 % (0.0-0.8); HEMOGLOBIN 12.3 g/dL (14.0-18.0); IMM GRAN# 0.03 X1000 (0.0-0.04); IMM GRAN% 0.2 % (0.0-0.5); LYMPH# 0.74 X1000 (1.2-3.4); LYMPH% 4.4 % (20.5-51.1); MCH 31.3 PG (27-31); MCHC 32.4 g/dL (33-37); MCV 96.7 FL (81-99); MONO# 1.03 X1000 (0.11-0.59); MONO% 6.1 % (1.7-9.3); MPV 10.8 FL (7.4-10.4); NEUT# 15.04 X1000 (1.4-6.5); NEUT% 89.2 % (42.2-75.2); PLT 197 X1000 (130-400); RBC 3.93 XMIL (4.7-6.1); RDW 13.9 % (11.5-14.5); WBC 16.85 X1000 (4.8-10.8)
[2018-12-30] MEDS: SYMBICORT 160/4.5 MICROGM INHALER INH SCH ×2 (07:45→19:52)
[2018-12-30 07:47] LABS: CALCIUM 8.3 mg/dL (8.8-10.2); CREATININE 2.3 mg/dL (0.7-1.2); POTASSIUM 4.3 mmol/L (3.5-5.1)
[2018-12-30 08:06] LABS: BANDS 6 % (0-1); LYMPHS 10 % (21-51); MONO 4 % (1-9); SEGS 80 % (42-75)
[2018-12-30] MEDS ORDERED: LASIX IV ONE (08:15)
[2018-12-30] MEDS: VITAMIN D PO SCH (08:37)
[2018-12-30] MEDS: SOLU-MEDROL IV SCH (08:37)
[2018-12-30] MEDS: ASPIRIN PR SCH (08:37)
[2018-12-30 08:51] LABS: ALLEN TEST YES; BE 0.5 mmoll (-3.0-3.0); BLOOD TYPE ARTERIAL; HCO3-(ACT) 25.1 mmoll (20.0-26.0); METHB 1.2 % (0.0-1.5); MODALITY VENTIMASK; O2(CT) 18.9 mL/dL (15.0-23.0); O2HB 91.6 % (95.0-99.0); PCO2(98.6) 37 mmHg (35-45); PO2(98.6) 61 mmHg (60-100); SAMPLE BLOOD; SAO2 94.4 % (95.0-100.0); THB 14.7 g/dL (11.5-17.4); pH(98.6) 7.43 (7.35-7.45)
--- NOTE | 2018-12-30 10:02 | PROGRESS NOTE ---
DATE: 12/30/2018 INTERVAL HISTORY: No acute events overnight. He was started on aspirin since his EKG had anterolateral T-wave inversions. He became a little more alert, though he was fidgety and restless, requiring restraints. He was kept on Ventimask. SUBJECTIVE: In the morning time, he is still in restraints. He is answering questions appropriately. He states he is hungry. However, he is very fidgety and keeps moving inside the bed, trying to come out of bed intermittently. OBJECTIVE: Vital Signs: He has been afebrile, temperature of 98.4 degrees, pulse 114, respiratory rate 32, blood pressure 92/59, he is saturating 94% on 50% Ventimask. HEENT: Oral cavity has some coffee-ground sputum. Lungs: He has air entry bilaterally equal. He does have end-expiratory wheezes, more pronounced on the right inframammary region, and inspiratory crackles. Cardiovascular: S1, S2 normal. Regular. Tachycardic. No murmur, rub, or gallop. EKG has anterolateral T-wave inversions. Abdomen: Obese, soft, nontender. I could not appreciate bowel sounds. He does not have lower extremity edema. He has urine catheter. He has dorsiflexion on plantar reflex. Reflexes are 2+ bilaterally. He withdraws to painful stimuli, all extremities, more on the right than on the left. LABORATORY DATA: Labs suggestive of leukocytosis, normocytic anemia, normal platelet count. ABG suggestive of PO2 of 61 on 50% Ventimask. BMP suggestive of chronic kidney disease stage III to stage IV. Acceptable range of blood glucose. His TSH was 6.08. Phenytoin levels were within acceptable range. MICROBIOLOGY: No positive microbiological data. IMAGING: Imaging this morning suggests pulmonary edema, small right pleural effusion. Head CT yesterday did not have any hemorrhage or any change from the prior. Chest CT had bibasilar pneumonia with atelectasis and small pleural effusion and questionable right tiny pneumothorax. ASSESSMENT AND PLAN: 1. Recurrent generalized tonic-clonic seizure, likely due to new versus old cerebrovascular accident, without prior history of seizure. He was loaded with fosphenytoin, and since then on intravenous maintenance phenytoin. Continue seizure and aspiration precautions, as well as lorazepam as needed. 2. Suspected acute right hemispheric cerebrovascular accident with prior history of right hemispheric cerebrovascular accident. Head CT has not shown any cerebrovascular accident, though it was done within 48 hours. I will consider getting an MRI of his brain versus a repeat CT scan tomorrow. Followup ultrasound carotid. Echocardiogram was of poor quality. Continue rectal aspirin. Continue enoxaparin for deep venous thrombosis prophylaxis, as well as blood sugar control with insulin sliding scale. Even with restraints, my fear is that he may pull out nasogastric tube. However, I will consider putting in one in the future, and start him on high-dose atorvastatin. 3. Acute encephalopathy with episodes of agitation. This is likely toxic metabolic encephalopathy. He intermittently becomes alert and he is answering questions appropriately, though he is restless in the bed. My suspicion of status epilepticus is extremely low at the moment. I will give him haloperidol and lorazepam as needed. 4. Acute hypoxic respiratory failure due to acute pulmonary edema and bilateral aspiration pneumonia. Continue intravenous antibiotics. Follow up blood culture, and give additional dose of intravenous Lasix. 5. Myocardial ischemia. He does not have known history of coronary artery disease. Will keep him on rectal aspirin. It appears that he has involvement of left upper and left lower extremity because of his cerebrovascular accident, which led to seizure, so I have not started him on a very high dose of anticoagulation at the moment. I will appreciate Cardiology recommendation. Considering his hypotension, which could be because of sepsis or myocardial ischemia, he has not been on any beta farnaz or angiotensin-converting enzyme inhibitors. 6. History of chronic obstructive pulmonary disease with mild exacerbation. Continue albuterol/ipratropium nebulization, budesonide, formoterol inhaler, as well as intravenous steroids, which I will start today. 7. History of recurrent lung cancer. He is suspected to have recurrence of his lung cancer. He is status post CT-guided biopsy with residual right-sided pneumothorax. Surgical team and Oncology on board. 8. Disposition. His condition is critical. More than 30 minutes of critical care time were spent in taking care of this patient. Plan of care discussed with the patient. I will keep the family updated. cc: Alhaji Kelsey MD MTDD
--- NOTE | 2018-12-30 10:14 | Diag Imaging Result Doc PS360 ---
EXAM: ABDOMEN FLAT/UPRIGHT 12/30/2018 HISTORY: Rule out SBO/Constipatiob TECHNIQUE: Flat and upright abdomen COMMENT: There is stool throughout much of the colon including the rectosigmoid colon. The stomach is not distended. The small bowel is not distended. There is no evidence of organomegaly or mass. IMPRESSION: Constipation. Electronically signed by Eric Reza 12/30/2018 10:11 AM
[2018-12-30] MEDS: DULCOLAX PR SCH ×3 (10:53→20:02)
[2018-12-30] MEDS: SODIUM CHLORIDE 0.9% INJ SCH (12:19)
[2018-12-30] MEDS: PROTONIX IV SCH (12:19)
--- NOTE | 2018-12-30 13:22 | CARDIOLOGY CONSULTATION ---
DATE: 12/30/2018 CHIEF COMPLAINT ON PRESENTATION: The patient had an outpatient lung biopsy. He subsequently developed a pneumothorax and seizures, and was subsequently admitted. HISTORY OF PRESENT ILLNESS: Mr. Gonzalez is a 63-year-old male who presented for an outpatient CT- guided biopsy of the right lung. During the course of the procedure, he had some shortness of breath. He had a small postprocedural pneumothorax, and was admitted initially. He had resultant seizure activity afterwards, became unresponsive, and there was concern for stroke-like symptoms as well. We are consulted regarding an echocardiogram that he had done yesterday, which showed a significant reduction in his EF. PAST MEDICAL HISTORY: Significant for: 1. Small-cell lung cancer, followed by [facility]. 2. Hypertension. 3. Hyperlipidemia. 4. Type 2 diabetes. 5. 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 6. COPD. SOCIAL HISTORY: Previous smoker. Reports he quit roughly 20 years ago. No current alcohol use. FAMILY HISTORY: Hypertension. REVIEW OF SYSTEMS: A 10-system review of systems is negative, except for those things mentioned in the HPI. PHYSICAL EXAMINATION: Vital Signs: The patient is afebrile. His heart rates have been elevated in the 100s to 120s. His blood pressure is 120/68. O2 saturation is 94% with Venturi mask. General: He is in no acute distress. He answers all questions appropriately, but he is a little bit fidgety. Reportedly, his mental status has cleared significantly. HEENT: Oropharynx is moist. Poor dentition. Eye examination shows pink conjunctiva, white sclerae. Neck: No obvious thyromegaly or thyroid tenderness. Cardiovascular: He sounds to be in a tachycardic, but regular rhythm. He has no obvious murmurs. He has no S3. Extremities: He has no lower extremity edema. He has warm and well perfused extremities. Chest: Coarse breath sounds bilaterally. No increased work of breathing. Abdomen: Soft, nontender, nondistended. He has no obvious organomegaly. Skin: Warm and dry throughout without any rashes. Neurological: He seems to be moving all extremities well. He has some deficits in his left hand as far as being able to open his hand, but apparently those were some of the symptoms that he had at the time of his previous stroke. Psychiatric: He keeps his eyes closed during most of the examination, except when told to open them. He follows commands. He answers questions appropriate. DATA: A CT of his head showed chronic ischemic changes on the right. No acute findings noted. He had a chest x-ray today showing pulmonary edema and a small right pleural effusion. His abdomen x-ray shows some evidence of constipation. He had an EKG done yesterday that demonstrated some ST-segment changes in V2 and V3. No apparent reciprocal changes. He has some biphasic T- waves there. His previous electrocardiogram on 12/28/2018 shows sinus rhythm, no real ischemic changes or abnormalities. His EKG earlier on presentation shows sinus tachycardia, rate of 152 beats per minute, very difficult to examine EKG. Baseline is difficult. Probable sinus tachycardia identified. His echocardiogram was difficult yesterday. His ejection fraction was significantly reduced. Repeat of the study today with Optison contrast shows a dyskinetic apex with a more hyperdynamic base. Appears probable most consistent with a Takotsubo-type phenomenon. No LV thrombus was identified. Chest CT showed a bibasilar pneumonia with some atelectasis and small pleural effusions. LABORATORY DATA: White count 16.8, his hematocrit is 38, his platelet count is 197,000. He does have a small bandemia. His sodium is 150, potassium 4.3, BUN 28, creatinine is 2.3. Compared to previous in 09/2018, his creatinine was 1.9. In 2017, he had creatinines well into the 2's. It appears he is probably at his baseline. His troponin initially was 0.304, peaked at 0.532, and currently is coming down at 0.435. ASSESSMENT: Mr. Gonzalez is a 63-year-old gentleman who presented for an outpatient procedure with a CT-guided biopsy of his lung. He suffered a pneumothorax and has probably had seizure activity as well as a stroke. PLAN: At this point, I will put him on a very small dose of beta-farnaz 12.5 orally every 6 hours. We will likely pursue cardiac catheterization in the near future to delineate his coronary anatomy. He does not seem to be having any current ischemic pain, and denies any chest pain earlier in the hospitalization. I will reorder an EKG for today, as well as in the morning. He is on aspirin. We will continue from this point. His Echo findings could be explained by a Takotsubo type cardiomyopathy. cc: MD Alhaji Joiner MD MTDD
[2018-12-30] MEDS: LOPRESSOR PO SCH ×2 (13:23→20:01)
--- NOTE | 2018-12-30 16:14 | ECHO REPORT ---
ORDER DATE: 12/30/2018 INDICATION: Reduced LV function. Evaluate for thrombus. FINDINGS: Limited echocardiogram with 2 dimensional images obtained and injection of Optison contrast. On injection of Optison there was dyskinesis of the apex. Hyperdynamic contraction noted at the base of the left ventricle. There was swirling of contrast in the apex consistent with a low-flow state but there was no clear evidence of organized thrombus. The EF is estimated in the range of 20-25%. cc: MD Alhaji Joiner MD [facility]
--- NOTE | 2018-12-30 16:57 | PULMONOLOGY PROGRESS NOTE ---
DATE: 12/30/2018 SUBJECTIVE: The patient is arousable. He denies specific complaints. He is oriented. He cannot move his left lower extremity. OBJECTIVE: Vital Signs: The patient has been afebrile for the last 24 hours. Blood pressure 146/58, heart rate 112, respiratory rate 24, oxygen saturation 95% on 50% FiO2. HEENT: Pupils are equal and reactive. Oropharynx appears clear. Neck is supple. Chest reveals diminished breath sounds in both lung bases with scattered rhonchi. Cardiac: S1, S2. Abdomen is soft. Extremities are without edema. DIAGNOSTIC STUDIES: Chest x-ray reveals shallow inspiration with pulmonary edema and small right- sided pleural effusion. White blood count 16.9, hemoglobin 12.3, platelet 197,000. Sodium 150, potassium 4.3, chloride 107, bicarbonate 22, BUN 28, creatinine 2.3, glucose 157. IMPRESSION: 1. Increased activity on PET scan of the thorax with history of lung cancer status post. 2. Small iatrogenic pneumothorax associated with a biopsy. This does not appear to be evident on current exam. 3. Seizure. 4. Acute hypoxemic respiratory failure. 5. Aspiration pneumonia. 6. Acute stroke with paralysis. 7. Myocardial ischemia. 8. Hypernatremia. DISCUSSION: A 63-year-old with problems outlined above. He remains critically ill and will need to continue to be managed in the ICU. PLAN: 1. Agree with Cardiology evaluation, as you have done. 2. Continue oxygen for hypoxemic respiratory failure. He may require BiPAP or mechanical ventilation. 3. Continue reduced-dose Lovenox for: A. Stroke prophylaxis. B. DVT prophylaxis. C. Myocardial ischemia. 4. Gentle fluid resuscitation, given hypernatremia. 5. Continue ICU monitoring. TIME SPENT IN CRITICAL CARE MANAGEMENT: 30+ minutes. cc: MD Alhaji Fischer MD
[2018-12-30] MEDS: D5W 1,000 ML IV SCH (17:04)
--- NOTE | 2018-12-30 17:20 | EKG Report ---
Test Performed on : 12/30/2018 06:11:16 AM Test Reason : Follow up ST T changes Blood Pressure : / mmHG Vent. Rate : 118 BPM Atrial Rate : 118 BPM P-R Int : 160 ms QRS Dur : 084 ms QT Int : 378 ms P-R-T Axes : 029 067 -20 degrees QTc Int : [address] & T wave abnormality, consider anterolateral ischemia Prolonged QT Abnormal ECG When compared with ECG of 29-DEC-2018 11:46, (Unconfirmed) T wave inversion more evident in Lateral leads Confirmed by Reji Livingston MD ([id number]) on 12/31/2018 3:30:11 PM
[2018-12-30] MEDS: NEO-SYNEPHRINE 50 MG in NS 250 ML IV SCH (17:27)
[2018-12-31] MEDS: LOVENOX SUBQ SCH ×3 (01:55→15:30)
[2018-12-31] MEDS: LOPRESSOR PO SCH ×5 (01:55→20:09)
[2018-12-31] MEDS: NEO-SYNEPHRINE 50 MG in NS 250 ML IV SCH ×5 (01:57→23:56)
[2018-12-31] MEDS: HUMALOG SUBQ SCH ×4 (01:59→20:25)
[2018-12-31] MEDS: ZOSYN 2.25 GM in NS 50 ML IV SCH ×4 (02:00→20:12)
[2018-12-31] MEDS: DUONEB (A & A) INH SCH ×6 (03:51→23:29)
[2018-12-31] MEDS ORDERED: LASIX IV ONE (03:55)
[2018-12-31] MEDS: DULCOLAX PR SCH ×5 (05:23→20:12)
[2018-12-31] MEDS: DILANTIN IV SCH ×3 (05:23→20:11)
[2018-12-31] MEDS: SYNTHROID IV SCH (06:27)
--- NOTE | 2018-12-31 06:57 | Diag Imaging Result Doc PS360 ---
CHEST-PORTABLE - 12/31/2018 INDICATION: dyspnea COMPARISON: 12/30/2018 FINDINGS: There has been worsening in the bilateral relatively dense alveolar infiltrates. Stable cardiomegaly and pulmonary vascular congestion. No pneumothorax or large pleural effusion. IMPRESSION: Worsening bilateral infiltrates. Electronically signed by Don Nath 12/31/2018 6:55 AM
--- NOTE | 2018-12-31 07:35 | EKG Report ---
Test Performed on : 12/31/2018 07:02:44 AM Test Reason : FOllow up anterolateral ST T changes Blood Pressure : / mmHG Vent. Rate : 107 BPM Atrial Rate : 107 BPM P-R Int : 154 ms QRS Dur : 092 ms QT Int : 342 ms P-R-T Axes : -02 -12 075 degrees QTc Int : 456 ms Sinus tachycardia. T wave abnormality, consider anterolateral ischemia Abnormal ECG When compared with ECG of 30-DEC-2018 16:15, (Unconfirmed) Questionable change in QRS axis T wave inversion no longer evident in Inferior leads QT has shortened Confirmed by Miki HAIDER, Reji Sanchez ([id number]) on 12/31/2018 3:31:24 PM
--- NOTE | 2018-12-31 07:37 | EKG Report ---
Test Performed on : 12/30/2018 4:15:46 PM Test Reason : troponin elevation Blood Pressure : / mmHG Vent. Rate : 105 BPM Atrial Rate : 105 BPM P-R Int : 178 ms QRS Dur : 094 ms QT Int : 404 ms P-R-T Axes : 058 071 -75 degrees QTc Int : 533 ms Sinus tachycardia. T wave abnormality, consider inferior ischemia T wave abnormality, consider anterolateral ischemia Prolonged QT Abnormal ECG When compared with ECG of 30-DEC-2018 06:11, (Unconfirmed) T wave inversion more evident in Inferior leads Confirmed by Reji Livingston MD ([id number]) on 12/31/2018 3:31:09 PM
[2018-12-31 08:27] LABS: BASO# 0.01 X1000 (0.0-0.2); CALCIUM 8.2 mg/dL (8.8-10.2); CREATININE 2.1 mg/dL (0.7-1.2); EOS# 0.01 X1000 (0.0-0.7); HEMATOCRIT 40.9 % (42.0-52.0); HEMOGLOBIN 13.1 g/dL (14.0-18.0); IMM GRAN# 0.06 X1000 (0.0-0.04); IMM GRAN% 0.3 % (0.0-0.5); LYMPH# 1.16 X1000 (1.2-3.4); LYMPH% 5.2 % (20.5-51.1); MCH 31.3 PG (27-31); MCV 97.6 FL (81-99); MONO# 1.53 X1000 (0.11-0.59); MONO% 6.8 % (1.7-9.3); MPV 11.3 FL (7.4-10.4); NEUT# 19.62 X1000 (1.4-6.5); NEUT% 87.7 % (42.2-75.2); PLT 224 X1000 (130-400); POTASSIUM 4.1 mmol/L (3.5-5.1); RBC 4.19 XMIL (4.7-6.1); RDW 14.1 % (11.5-14.5); WBC 22.39 X1000 (4.8-10.8)
--- NOTE | 2018-12-31 08:40 | CARDIOLOGY PROGRESS NOTE ---
DATE: 12/31/2018 SUBJECTIVE: Mr. Gonzalez reports he feels a little bit better this morning after some shortness of breath apparently last night. He had some Lasix, it looks like, that was ordered this morning around 4 a.m. PHYSICAL EXAMINATION: Vital Signs: The patient is afebrile. His heart rates are running predominantly in the low 100s. His blood pressure is 131/67. General: He is in no acute distress. Cardiovascular: He is in a tachycardic, but regular rhythm. He has no murmurs. He has no lower extremity edema. Chest: Has some diffuse bilateral rales. No increased work of breathing. He is on Ventimask. Abdomen: Soft, nontender. PERTINENT DATA: He has no new laboratory data today. ASSESSMENT: Mr. Gonzalez is a 63-year-old gentleman who presented with a stroke and seizure following a biopsy. PLAN: At this point, his x-ray looks worse. His echo appears most consistent with a Takotsubo- type phenomenon. He has no clear evidence of LV clot. He got some diuretic last night. I will order 60 IV of Lasix daily, starting today. Laboratories have been ordered. cc: MD Alhaji Joiner MD
[2018-12-31 08:44] LABS: MAGNESIUM 1.5 mg/dL (1.5-2.7)
[2018-12-31] MEDS: SYMBICORT 160/4.5 MICROGM INHALER INH SCH ×2 (08:45→20:00)
[2018-12-31 08:56] LABS: BANDS 4 % (0-1); LYMPHS 4 % (21-51); MONO 2 % (1-9); SEGS 90 % (42-75)
[2018-12-31] MEDS: SOLU-MEDROL IV SCH (09:28)
[2018-12-31] MEDS: LASIX IV SCH (09:28)
[2018-12-31] MEDS: ASPIRIN PR SCH (09:29)
[2018-12-31] MEDS: VITAMIN D PO SCH (09:29)
[2018-12-31 09:41] LABS: ALLEN TEST YES; BE 4.2 mmoll (-3.0-3.0); BLOOD TYPE ARTERIAL; HCO3-(ACT) 28.1 mmoll (20.0-26.0); METHB 1.4 % (0.0-1.5); O2(CT) 16.6 mL/dL (15.0-23.0); O2HB 93.7 % (95.0-99.0); PCO2(98.6) 34 mmHg (35-45); PO2(98.6) 69 mmHg (60-100); SAMPLE BLOOD; SAO2 96.9 % (95.0-100.0); THB 12.6 g/dL (11.5-17.4); pH(98.6) 7.51 (7.35-7.45)
[2018-12-31 09:43] LABS: MODALITY VENTIMASK
--- NOTE | 2018-12-31 10:12 | PROGRESS NOTE ---
DATE: 12/31/2018 INTERVAL HISTORY: No acute events overnight. The patient has become more alert and talkative. He has been off restraints. His chest x-ray suggested worsening infiltrate and cardiology team has already started him on intravenous Lasix. SUBJECTIVE: He is tachypneic, tachycardic, and he answers all questions appropriately. He is a little fidgety, though. VITALS: Temperature of 98.6 degrees, pulse 110, respiratory rate 21, blood pressure 130/67. He is saturating 95% on 15 L Venturi mask. PHYSICAL EXAMINATION: He denies any chest pain. He is feeling a little short of breath. Oral cavity is otherwise moist. Air entry, he has diffuse crackles, bilateral inframammary region, with decreased air entry. S1, S2 normal. Tachycardic. No murmur, rub, or gallop. Abdomen is obese, soft, nontender. He does not have any lower extremity edema. He does not have any documented bowel movement so far. Neurological Examination: He has right-sided ptosis, flattening of nasolabial fold on the left side. He has hypertonia of left upper and left lower extremity. His power is intact on right upper and lower extremity. LABS: Suggestive of worsening leukocytosis, normocytic anemia, normal platelet count. He also had mild wheezing on examination. His sodium appears to be better. He does have elevated BUN and stable creatinine. He also had hypophosphatemia and hypomagnesemia, which I will replace. ASSESSMENT AND PLAN: 1. Acute hypoxic respiratory failure and suspected septic shock due to bilateral pneumonia. Continue oxygenation to maintain saturation more than 90%, DuoNebs,and IV steroids for suspected acute chronic obstructive pulmonary disease exacerbation. Blood culture has not shown any growth to date. I will order a sputum culture if the patient can coordinate. He is at high risk of going to noninvasive ventilation versus BiPAP versus intubation. I will continue phenylephrine to maintain MAP more than 65 mmHg. 2. Suspected Takotsubo cardiomyopathy without prior known history of coronary artery disease. He did have anterolateral T-wave inversions on electrocardiogram and elevated troponins. Repeat echocardiogram result is pending. Cardiology team on board and currently recommends beta farnaz and diuretics. He may eventually need coronary angiography. I will keep him on daily aspirin per rectally. 3. Recurrent generalized tonic-clonic seizure, likely due to a new versus old cerebrovascular accident versus brain metastasis secondary to lung cancer, without prior history of seizure. He was loaded with intravenous fosphenytoin and I will continue intravenous maintenance phenytoin. If he is stable enough, I will get the MRI of the brain and MR angiography. Otherwise, I will consider repeat head CT. I will consult neurology today. He also had a prior history of cerebrovascular accident on the right hemisphere. I will continue him on aspirin. Ultrasound, carotid official report, and repeat echocardiogram results are pending. 4. Acute encephalopathy with episodes of agitation, likely in the setting of sepsis, cerebrovascular accident, and postictal phenomenon from his recurrent generalized tonic-clonic seizure, now improving. I will give him haloperidol and lorazepam as needed. 7. History of recurrent lung cancer, status post a CT-guided biopsy. His pneumothorax has essentially resolved. Surgery and oncology team on board. 8. Disposition. His condition is critical. More than 30 minutes of critical care time were spent on taking care of this patient. Continue to monitor the patient in the ICU. In summary, Mr. Gonzalez is a 63-year-old, individual who was initially getting a right- sided CT-guided lung biopsy outpatient when he had an episode of syncope and a CAT call was called. Later on, he was taken to the emergency room and the patient's sister had noticed that he was moving his left upper extremity less than before. Chest x-ray performed in the emergency room had detected a small right-sided pneumothorax, so he was admitted under surgery service for observation. However, as soon as he came on the floor, he started having generalized tonic-clonic seizure which triggered another CAT call on the floor. Medicine team was consulted and I immediately transferred him to the intensive care unit. He was started on antiseizure medication. At the time of my evaluation, he has noticeable findings of decreased left upper and lower extremity movement, hypertonia, as well as a positive Babinski sign, with right- sided ptosis and left-sided flattening of the nasolabial fold, suspicious of a new right-sided hemispheric cerebrovascular accident. However, he was, by that time, already out of 4.5 hours of a window for tPA he was having recurrent seizure which was a relative contraindication for tPA. He was managed conservatively. Later on, he had started becoming hypotensive and x-ray had suggested pneumonia. He was started on phenylephrine for suspected septic shock with antibiotics and then he had started developing myocardial ischemia. The patient's sister has been kept informed of his critical course so far. cc: Alhaji Kelsey MD [facility]
[2018-12-31] MEDS: D5W 1,000 ML IV SCH (10:14)
[2018-12-31 10:20] LABS: CALCIUM 7.7 mg/dL (8.8-10.2); CREATININE 2.3 mg/dL (0.7-1.2); POTASSIUM 3.9 mmol/L (3.5-5.1)
[2018-12-31] MEDS ORDERED: NS 250 ML ONE (10:25)
--- NOTE | 2018-12-31 10:28 | EKG Report ---
Test Performed on : 12/31/2018 09:57:46 AM Test Reason : A-Fib RVR Blood Pressure : / mmHG Vent. Rate : 146 BPM Atrial Rate : 159 BPM P-R Int : 000 ms QRS Dur : 086 ms QT Int : 330 ms P-R-T Axes : 000 068 -49 degrees QTc Int : 514 ms Atrial fibrillation. with rapid ventricular response. ST & T wave abnormality, consider inferior ischemia ST & T wave abnormality, consider anterolateral ischemia Abnormal ECG When compared with ECG of 31-DEC-2018 09:56, (Unconfirmed) Atrial fibrillation. has replaced Sinus rhythm. Confirmed by Miki HAIDER, Reji Sanchez ([id number]) on 12/31/2018 3:31:45 PM
[2018-12-31] MEDS: MIRALAX PO SCH ×2 (10:30→20:09)
[2018-12-31] MEDS: MAGNESIUM SULFATE 2 GM/S.W.I. 2 GM/50 ML IVPB IV SCH ×2 (10:30→14:20)
[2018-12-31] MEDS: LIPITOR PO SCH (10:45)
[2018-12-31] MEDS: ASPIRIN PO SCH (11:00)
[2018-12-31 11:33] LABS: INR 1.04; PROTIME 13.8 Seconds (11.0-16.0)
[2018-12-31] MEDS ORDERED: LOPRESSOR IV PRN (11:58)
[2018-12-31] MEDS: CARDIZEM 100 MG/NS 100 MG/100 ML IVPB IV SCH ×2 (12:21→20:13)
--- NOTE | 2018-12-31 12:30 | EKG Report ---
Test Performed on : 12/31/2018 12:04:52 PM Test Reason : Possible A. Fib RVR. Blood Pressure : / mmHG Vent. Rate : 114 BPM Atrial Rate : 114 BPM P-R Int : 170 ms QRS Dur : 092 ms QT Int : 344 ms P-R-T Axes : 066 074 010 degrees QTc Int : 474 ms Sinus tachycardia. T wave abnormality, consider inferolateral ischemia Abnormal ECG When compared with ECG of 31-DEC-2018 09:57, (Unconfirmed) Sinus rhythm. has replaced Atrial fibrillation. Non-specific change in ST segment in Anterior leads Confirmed by Reji Livingston MD ([id number]) on 12/31/2018 3:31:51 PM
[2018-12-31] MEDS: HALDOL IV PRN (12:56)
[2018-12-31] MEDS: PROTONIX IV SCH (14:21)
[2018-12-31] MEDS ORDERED: ATIVAN IV ONE (14:37)
[2018-12-31] MEDS: ATIVAN IV PRN (14:41)
[2018-12-31] MEDS: VANCOMYCIN 1,850 MG in NS 500 ML IV SCH (18:00)
[2018-12-31] MEDS ORDERED: SALINE LOCK IV FLUID XX ONE (18:10)
[2018-12-31] MEDS ORDERED: LANTUS INSULIN SUBQ ONE (18:18)
--- NOTE | 2018-12-31 19:55 | CONSULTATION ---
DATE OF CONSULTATION: 12/31/2018 REASON FOR CONSULT: Question stroke, seizure. HISTORY OF PRESENT ILLNESS: This is a 63-year-old, right-handed, male with history of remote stroke with residual left hemiparesis, stage III lung cancer status post chemo and radiation with recent increasing PET avid lung lesion and suspected recurrence. He underwent an outpatient CT-guided biopsy of the lung lesion, I believe on 12/28 and tolerated that procedure well. At some point, he had some difficulty breathing. An x-ray showed a small pneumothorax. There were also reports that he had possibly a vasovagal event. At some point, he was hypotensive with a blood pressure as low as 68/43. He was poorly responsive, unable to answer questions and apparently had 3 generalized appearing seizure-like events. There is concern the patient had a stroke. To me today, the patient says that he has worsened left-sided weakness from baseline. He does report having a stroke several years ago with residual left-sided weakness. Other than that, his mental status has improved a bit. PAST MEDICAL HISTORY: Includes 1. Remote stroke with residual left hemiparesis. 2. Lung cancer with concern for recurrence. 3. Diabetes. 4. Chronic kidney disease. 5. COPD. 6. Hypothyroidism. 7. Partial nephrectomy. 8. Mediastinoscopy. 9. Bronchoscopy. FAMILY HISTORY: No strokes. SOCIAL HISTORY: Prior tobacco use but none currently. No alcohol or illicits. ALLERGIES: Listed to Levaquin. CURRENT MEDICATIONS: Reviewed in the chart include 1. Aspirin 325 mg daily. 2. Lipitor 40 mg daily. 3. Lorazepam, last dose today at 2:40, shortly before I saw him. 4. Solu-Medrol 40 mg IV q.24 hours scheduled. 5. Haldol, last dose at 1 o'clock today, 2 mg. 6. P.r.n. morphine. 7. Phenylephrine. 8. Phenytoin 100 mg IV every 8 hours. REVIEW OF SYSTEMS: Difficult to obtain due to patient factors. PHYSICAL EXAMINATION: Vital Signs: Temperature 99.8 degrees. Blood pressure most recently 110 to 147 over 90s to 100. There are some intermittent hypotensive events. Pulse 98 to 117, respirations 26, Venturi mask. Neurologic: Mr. Gonzalez is supine in bed on face mask. He is awake. He regards when I enter the room. He states his name. He does not know his location. States the year, did not know the month but could correct with clue. Followed some simple commands. Left right and digit distinction preserved. Naming and repetition intact. No language disturbance on brief bedside testing. Pupils are equal, round and reactive. Gaze is conjugate and forward. Extraocular movements are full. Blinks to threat. Not attentive enough for more formal visual field testing. He can hear. There is slight flattening of the nasolabial fold on the left. Facial sensation reported intact. There is a mild left hemiparesis with increased tone. His hand and arm rest in a flexed position. I can overcome the left deltoid and triceps. 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 Strength on the right is preserved. On the left leg, the plantar flexion and extension were reduced compared to the right. He reports preserved sensation in the limbs to light touch and pinprick. Reflexes are 2+ at the wrist, biceps and knees bilaterally, maybe slightly more brisk on the left, 1+ at the ankles. No clonus. Plantar responses equivocal to up on the left, down on the right. He performed finger to nose using the right hand but not the left. DIAGNOSTIC DATA: Head CT on 12/28/2018, personally reviewed, showing chronic changes on the right with a lacune present bilaterally in the periventricular parietal white matter. There is prominent lacune in the genu of the internal capsule on the right. Head CT on 12/29/2018, no change. LABORATORY DATA: White count of 22, platelets 220,000. BUN 33, creatinine 2.3 which has trended up. Calcium 7.7. Blood sugars mid 100s to upper 200s. AST 73, ALT 44. Phenytoin level was 18 yesterday. ASSESSMENT AND PLAN: 1. Seizure like activity. Unlikely to be new onset seizures related to his remote stroke. Continue phenytoin for now, current dose. Evaluate for recent stroke. Will order EEG now. Recommend MRI once able. Seizure precautions. 2. Question of recent stroke with apparently worsened left sided weakness from baseline following hypotensive event. Right carotid stenosis of 40 to 59 percent in 2013 with uncertain follow up. Takatsubo cardiomyopathy a concern. Agree with stroke workup to include carotid dopplers and MRI once able. Avoid hypotension. Continue ASA, statin, telemetry 3. There may be a component of a superimposed encephalopathy, multifactorial. 4. History of stage III lung cancer and now concern for recurrence. Workup per oncology. Thank you for the consult. cc: MD Alhaji Flores MD MTDD
--- NOTE | 2018-12-31 20:11 | HEMO/ONC PROGRESS NOTE ---
DATE: 12/31/2018 SUBJECTIVE: Mr. Gonzalez is lying in his hospital bed in the ICU. He has slurred speech. He does not complain of any new complaints at this time. OBJECTIVE: Vital Signs: Temperature 99.8 degrees, heart rate is 115, respirations are 13, blood pressure 126/155, O2 saturation 95% on Venturi mask. Cardiovascular: Tachycardia noted. Rhythm appears to be regular. Respiratory: Chest with some coarse breath sounds. Gastrointestinal: Abdomen is soft. Extremities: Patient has some trace bilateral extremity edema. Neurological: The patient cannot move his left side independently. On his left hand, he cannot extend his fingers. He has slurred speech as well. The patient also seems rather confused and agitated compared to his baseline. ASSESSMENT AND PLAN: 1. Stage III non-small cell lung cancer with suspected intrathoracic recurrence status post biopsy on 12/28/2018. Final path is still pending. The patient has not recently had any chemotherapy or radiation and no evidence of distant metastatic disease. 2. Pneumothorax, small. Repeat chest x-ray shows no further pneumothorax. He does have what was believed to be pneumonia though. He is currently receiving IV antibiotics for pneumonia. 3. Acute hypoxic respiratory failure. Continue current management including nebulizer treatments, O2 support intravenous Lasix, intravenous steroids and IV antibiotics as well. 4. Acute congestive heart failure. Management per Cardiology who is currently on board. 5. New onset generalized tonic-clonic seizures. Neurology has now been consulted to follow up on those recommendations once they are provided. 6. Clinical evidence of acute stroke. We recommend at this time. The patient will be placed on full-dose anticoagulation while final diagnosis of stroke is completed. It looks like they are actually getting a brain MRI and an MRA today. The neurologist is also being consulted. Again, we will follow up on all those recommendations. 7. Acute encephalopathy with episodes of agitation. This is new for the patient. This is definitely a change in his baseline mental status and behavior. Agree with neuro consultation as well as repeat brain imaging. Dictated by SAMREEN Ramos for Laya Anna MD cc: MD Alhaji Lawrence MD I have seen and examined the patient and the above note reflects my history, physical, assessment and plan. Laya Anna MD [facility]
[2018-12-31] MEDS: MORPHINE IV PRN ×2 (20:12→22:28)
--- NOTE | 2018-12-31 20:58 | Carotid Study ---
DATE: 12/28/2018 STUDY: Carotid duplex. REQUEST PHYSICIAN: Dr. Kelsey. READING PHYSICIAN: Dr. Frederick. GAMING DEPARTMENT HEAD: Emile. INDICATION: Altered mental status and stroke. FINDINGS: The personnel and payroll technician noted this to be a very technically difficult study as the patient was very uncooperative. He was in restraints and had difficulty lying still and cooperating with the exam. The velocities on the right side all were unremarkable and not elevated. The velocities on the left side were basically not elevated except at the distal common carotid artery where it was 188 cm/sec. In the distal right common carotid artery there appears to be some calcific heterogeneous plaque. There is also heterogeneous plaque at the distal left common carotid artery which does proceed into the bulb. The vertebral artery on the left was not visualized and there was no velocity given. The right vertebral artery is antegrade. Percent stenosis is 0 to 39% bilaterally. INTERPRETATION: Mild plaque disease in the bilateral common and left internal carotid artery. There does not appear to be any significant velocity elevation or turbulent flow. The study was noted to be quite technically challenging. If further clinical suspicion exists, then CT angiography or MR angiography may be helpful. cc: MD Alhaji Saucedo MD
--- NOTE | 2018-12-31 22:31 | PULMONOLOGY PROGRESS NOTE ---
DATE: 12/31/2018 SUBJECTIVE: The patient is awake, alert, and conversant. Nurse reports no significant coughing today, but he did have some cough following some liquid intake while I was in the room. OBJECTIVE: Vital Signs: The patient has been afebrile for the last 24 hours. Blood pressure 129/84, heart rate 108, respiratory rate 16, oxygen saturation 96% on 50% FiO2. HEENT: Pupils are equal and reactive. Oropharynx appears clear. Neck: Is supple. Chest: Reveals crackles bilaterally. Cardiac exam: S1-S2. Abdomen: Is soft. Extremities: Without edema. LABORATORIES: White blood count 22,000, hemoglobin 13.1, platelet count 224,000. Arterial blood gas reveals a pH 7.51, pCO2 of 34, PO2 of 69. Chest x-ray reveals increase in bilateral infiltrates. IMPRESSION: 1. A 63-year-old with lung cancer status post biopsy. 2. Small iatrogenic pneumothorax no longer seen on chest x-ray. 3. Aspiration pneumonia. 4. Seizure. 5. Acute hypoxemic respiratory failure. 6. Acute stroke with loss of function of left lower extremity. 7. Myocardial ischemia. 8. Hypernatremia, which has resolved. DISCUSSION: A 63-year-old with problems outlined above. Clinically, he appears to have improved cognitively, but is having some worsening pulmonary infiltrates. PLAN: 1. Single dose of Lasix as instructed per Cardiology. 2. Hep-Lock IV fluids. 3. Continue bronchial hygiene. 4. Continue Lovenox. 5. Transition back to the NPO status if chest x-ray continues to worsen and obtain a formal barium swallow. cc: MD Alhaji Fischer MD
[2019-01-01] MEDS: LOPRESSOR PO SCH ×4 (01:14→20:40)
[2019-01-01] MEDS: LOVENOX SUBQ SCH ×2 (01:14→12:18)
[2019-01-01] MEDS: ZOSYN 2.25 GM in NS 50 ML IV SCH ×5 (02:07→20:40)
[2019-01-01] MEDS: HUMALOG SUBQ SCH ×5 (02:08→20:56)
[2019-01-01] MEDS: DULCOLAX PR SCH ×5 (02:10→20:49)
[2019-01-01] MEDS: DILANTIN IV SCH ×3 (03:07→20:40)
[2019-01-01] MEDS: DUONEB (A & A) INH SCH ×6 (03:41→23:09)
[2019-01-01 05:03] LABS: ALLEN TEST YES; BE 5.2 mmoll (-3.0-3.0); BLOOD TYPE ARTERIAL; O2(CT) 9.5 mL/dL (15.0-23.0); O2HB 96.2 % (95.0-99.0); PCO2(98.6) 38 mmHg (35-45); PO2(98.6) 85 mmHg (60-100); SAMPLE BLOOD; SAO2 99.2 % (95.0-100.0); THB 6.9 g/dL (11.5-17.4); pH(98.6) 7.49 (7.35-7.45)
[2019-01-01 05:05] LABS: MODALITY VENTIMASK
[2019-01-01 05:49] LABS: BASO# 0.01 X1000 (0.0-0.2); BASO% 0.1 % (0.0-0.8); EOS# 0.02 X1000 (0.0-0.7); EOS% 0.1 % (0.0-10.0); HEMATOCRIT 37.3 % (42.0-52.0); IMM GRAN# 0.04 X1000 (0.0-0.04); IMM GRAN% 0.2 % (0.0-0.5); LYMPH# 0.86 X1000 (1.2-3.4); LYMPH% 5.3 % (20.5-51.1); MCH 31.1 PG (27-31); MCHC 32.2 g/dL (33-37); MCV 96.6 FL (81-99); MONO# 1.27 X1000 (0.11-0.59); MONO% 7.8 % (1.7-9.3); MPV 11.2 FL (7.4-10.4); NEUT# 14.02 X1000 (1.4-6.5); NEUT% 86.5 % (42.2-75.2); PLT 180 X1000 (130-400); RBC 3.86 XMIL (4.7-6.1); RDW 13.9 % (11.5-14.5); WBC 16.22 X1000 (4.8-10.8)
[2019-01-01] MEDS: NEO-SYNEPHRINE 50 MG in NS 250 ML IV SCH (05:50)
[2019-01-01] MEDS: SYNTHROID IV SCH ×2 (05:54→06:05)
[2019-01-01 06:13] LABS: CALCIUM 8.3 mg/dL (8.8-10.2); CREATININE 1.9 mg/dL (0.7-1.2); POTASSIUM 3.2 mmol/L (3.5-5.1)
--- NOTE | 2019-01-01 07:12 | Diag Imaging Result Doc PS360 ---
EXAM: CHEST-PORTABLE 01/01/2019 HISTORY: dyspnea TECHNIQUE: AP portable at 0548 COMMENT: There is still a small right apical pneumothorax. There are patchy alveolar opacities particularly in the apices bilaterally. There has been some improvement with regard to the alveolar pulmonary edema since the previous examination of 12/31/2018. The apical opacities are worse however compared to 12/30/2018. IMPRESSION: Pulmonary edema and/or pneumonia. Electronically signed by Eric Reza 01/01/2019 7:10 AM
[2019-01-01 07:19] LABS: LYMPHS 4 % (21-51); MONO 2 % (1-9)
[2019-01-01 07:20] LABS: BANDS 2 % (0-1); SEGS 92 % (42-75)
--- NOTE | 2019-01-01 07:50 | EKG Report ---
Test Performed on : 01/01/2019 06:56:44 AM Test Reason : afib Blood Pressure : / mmHG Vent. Rate : 091 BPM Atrial Rate : 091 BPM P-R Int : 164 ms QRS Dur : 096 ms QT Int : 448 ms P-R-T Axes : 052 069 -29 degrees QTc Int : 551 ms Critical Test Result: Long QTc Normal sinus rhythm. T wave abnormality, consider inferior ischemia T wave abnormality, consider anterolateral ischemia Prolonged QT Abnormal ECG When compared with ECG of 31-DEC-2018 12:04, No significant change was found Confirmed by Reji Livingston MD ([id number]) on 01/02/2019 7:30:59 AM
[2019-01-01] MEDS ORDERED: KLOR-CON PO ONE (07:59)
[2019-01-01] MEDS: LASIX IV SCH (08:51)
[2019-01-01] MEDS: SOLU-MEDROL IV SCH (08:52)
--- NOTE | 2019-01-01 08:52 | PROGRESS NOTE ---
DATE: 01/01/2019 SUBJECTIVE: The patient seems to be more awake. He is answering all my questions. He is following commands. He is eating by himself. He is still tachypneic. He does have pulmonary edema and it looks like he has infiltrates as well/pneumonia. I have replaced the vancomycin for Zyvox due to his kidney dysfunction. I have replaced his potassium as well. We will continue with IV Lasix. Pending MRI and MRA of the head. OBJECTIVE: Vital Signs: Temperature 97.6 degrees, pulse 93, respiratory rate 26, blood pressure 155/97, oxygen saturation 96 on a Venturi mask. HEENT: Head normocephalic. No trauma. PERRLA. Neck: Supple. No JVD. No masses. Central trachea. Chest: Coarse breath sounds bilaterally and crackles, mostly at the bases. Abdomen: Soft, nontender, nondistended. No hepatosplenomegaly. Extremities: No edema, no clubbing, no cyanosis. Neurological Examination: The patient is alert. He is awake. He is eating by himself. He is using his right upper extremity. He has left-sided weakness which is chronic but, as per the patient, it is worse compared with before. Laboratory: WBC 16.2, hemoglobin 12, hematocrit 37.3, platelets 180,000. Sodium 137, potassium 3.2, chloride 93, bicarbonate 24, BUN 36, creatinine 1.9, glucose 182, calcium 8.3. ProBNP more than 35,000. ASSESSMENT AND PLAN: 1. Acute hypoxemic respiratory failure due to septic shock, bilateral pneumonia, and pulmonary edema. We will continue with oxygen supplementation, intravenous steroids. Pending a sputum culture, he is on phenylephrine which I believe can be stopped. His blood pressure at this moment is in the 140s-150s. I requested the nurse to ask neurology department if this is okay with them. 2. Suspected takotsubo cardiomyopathy without prior known history of coronary artery disease. Cardiology department on board. We will continue with beta blockers, diuretics, aspirin. 3. Recurrent generalized tonic-clonic seizure. Clinically, it looks like he has a new cerebrovascular accident. He may have also some brain metastasis due to his history of lung cancer but I believe he did not have any kind of seizures before. He has been loaded with fosphenytoin and we will continue with phenytoin maintenance. Pending MRI, MRA. Neurology department on board. Carotid Doppler ultrasound showed a stenosis of 0 to 39 percent bilaterally. 4. Encephalopathy. This is multifactorial. 5. Pneumonia with septic shock. He is still on pressors. Continue with antibiotics. I have replaced the vancomycin for Zyvox due to his kidney dysfunction. 6. Chronic kidney disease, seems to be his baseline. 7. History of recurrent lung cancer, status post CT-guided biopsy. He has a small iatrogenic pneumothorax. Surgery and oncology department on board. 8. Acute hypoxemic respiratory failure. Continue with oxygen supplementation and breathing treatment. Pulmonary department on board. CRITICAL CARE TIME: 30 minutes. cc: Antonio Alarcon MD
[2019-01-01] MEDS: ZYVOX 600 MG/D5W 600 MG/300 ML IVPB IV SCH ×2 (08:53→19:45)
[2019-01-01] MEDS: ASPIRIN PO SCH (08:53)
[2019-01-01] MEDS: VITAMIN D PO SCH (08:54)
[2019-01-01] MEDS: MIRALAX PO SCH ×2 (08:55→20:40)
[2019-01-01] MEDS: LIPITOR PO SCH (08:55)
[2019-01-01] MEDS: LANTUS INSULIN SUBQ SCH (08:56)
[2019-01-01] MEDS: SYMBICORT 160/4.5 MICROGM INHALER INH SCH ×2 (09:00→19:29)
[2019-01-01] MEDS ORDERED: LASIX IV ONE (12:00)
[2019-01-01] MEDS: PROTONIX IV SCH (12:17)
--- NOTE | 2019-01-01 13:27 | CARDIOLOGY PROGRESS NOTE ---
DATE: 01/01/2019 SUBJECTIVE: Mr. Gonzalez reports no pain complaints. He denies any shortness of breath. OBJECTIVE: The patient is afebrile. His heart rates are in the 80s to 90s. His blood pressure most recently was documented 96/53, his systolics appear to be somewhat fluctuant, anywhere from the 80s all the way up to the 160s. His I's and O's slightly negative yesterday. Today they have been documented positive. General: He is in no acute distress. Cardiovascular: He sounds to be in a mildly tachycardic rhythm. He has no murmurs. He has no S3. He has no lower extremity edema. His chest exam has coarse breath sounds somewhat diffusely. He has no increased work of breathing. His abdomen is soft and nontender. DIAGNOSTIC DATA: His EKG today appears to be sinus rhythm. He has some biphasic T-wave changes in the anterolateral leads. His lab data demonstrates a white count of 16 which is decreased, hematocrit 37, platelet count 180. He continues to have a slight bandemia. His sodium is 137, potassium is 3.2, his BUN is 36 with a creatinine of 1.9 which is overall improved. His ProBNP is greater than 35,000. His troponin was negative. ASSESSMENT: Mr. Gonzalez is a 63-year-old gentleman who presented for a biopsy and subsequently developed a small pneumothorax, seizure like activity and possible stroke symptoms. His echocardiogram was most consistent with takotsubo cardiomyopathy. PLAN: For now, we will continue him on the metoprolol. He seems to be tolerating that reasonably well. He is on aspirin therapy as well as high intensity statin. He appears to have had possible episode of atrial fibrillation that was noted on an EKG yesterday. We will continue to monitor that at this point. cc: MD Antonio Joiner MD
--- NOTE | 2019-01-01 14:33 | Diag Imaging Result Doc PS360 ---
CT HEAD W/O CONTRAST - 01/01/2019 INDICATION: Followup image. Suspicion for Right hemisphere CVA COMPARISON: 12/29/2018 FINDINGS: Stable old, large lacunar in the right basal ganglia and smaller old lacunae in the left basal ganglia. Stable small old area of encephalomalacia at the posterior right parietal lobe. No new abnormalities. No intracranial mass or hemorrhage. The skull is intact. The sinuses are clear. IMPRESSION: No change from prior. This exam was performed using automated exposure control, adjustment of mA or kV according to patient size, and/or use of iterative reconstruction technique Electronically signed by Don Nath 01/01/2019 2:30 PM
--- NOTE | 2019-01-01 16:30 | EEG REPORT ---
DATE: 12/31/2018 REFERRING: Dr. Alondra Pool. BIG DATA DEVELOPER: Janet Ansari. BACKGROUND INFORMATION AND TECHNIQUE: This is a digitally recorded portable routine EEG with video. HISTORY: This is a 63-year-old male with symptoms concerning for stroke and seizure. EEG is ordered to detect evidence of seizures. Medications include phenytoin, p.r.n. lorazepam, Haldol, and morphine. EEG FINDINGS: A posterior dominant alpha rhythm is not seen. The anterior background at maximal alertness consists of theta delta slowing with intermixed faster frequencies. Rare diffuse broad- based triphasic waves are seen during the study. No definite persistent focal slowing. No epileptiform discharges. No seizures. Hyperventilation was not performed. Photic stimulation does not alter the record. The patient becomes drowsy, but stage 2 sleep is not seen. EKG is not interpretable. IMPRESSION AND CLINICAL CORRELATION: Abnormal routine EEG due to moderate generalized slowing with rare triphasic waves indicative of a moderate nonspecific encephalopathy. No epileptiform discharges or seizures seen on the current study. This does not rule out an underlying seizure disorder. Generalized slowing is a nonspecific finding that can be seen in processes that diffusely affect the cerebrum, including toxic, metabolic, pharmacologic, post hypoxic and infectious etiologies amongst others. Triphasic waves are also a nonspecific finding often seen with encephalopathies involving hepatic or renal derangements. cc: MD Antonio Flores MD
--- NOTE | 2019-01-01 18:25 | PROGRESS NOTE ---
DATE: 01/01/2019 SUBJECTIVE: No major overnight events. Repeat head CT today for follow up was unchanged from prior. It continued to show the stable, old, large lacune in the right basal ganglia and smaller 1 in the left basal ganglia. There is also old encephalomalacia at the posterior right parietal lobe. OBJECTIVE: Vital Signs: Reviewed in the chart. General: Mr. Gonzalez is a supine in bed. Neurologic: He is awake and reasonably alert and attentive. He knows his name. Knows hospital, year, but did not know the month or the President. He followed some simple commands. Pupils equal, round, and reactive. Strength testing is unchanged. He continues to have the mild left hemiparesis with increased tone and holds his hand and arm at rest in the flexed position. DIAGNOSTICS: Repeat head CT today showing no change from prior and no acute findings. Labs reviewed in the chart. ASSESSMENT AND PLAN: 1. Seizure or seizure-like activity. He has not had further events. EEG did not show evidence of increased propensity to seizure. I would continue the phenytoin for now at current dose. I believe he will be getting an MRI once stable enough. 2. There is question of recent stroke following hypotensive event with apparently worsened left- sided weakness from baseline. A repeat CT today did not show any change. The patient did have 40 to 59% stenosis of the right carotid in 2013 associated with stroke then. Workup is underway. MRI would be helpful. 3. Again, there may be a component of superimposed encephalopathy which is multifactorial. 4. History of stage III lung cancer and now concern for recurrence. cc: MD Antonio Flores MD
--- NOTE | 2019-01-01 20:04 | PULMONOLOGY PROGRESS NOTE ---
DATE: 01/01/2019 SUBJECTIVE: The patient awake, alert and conversant. He is more attentive than yesterday. He continues to have significant weakness on the left side. OBJECTIVE: Vital Signs: The patient has been afebrile for the last 24 hours. BP 126/71, heart rate 84, respiratory rate 33, oxygen saturation 97% on 40% FiO2. HEENT: Pupils are equal and reactive. Oropharynx appears clear. Neck: Supple. Chest: Reveals rhonchi bilaterally. Cardiac exam: S1-S2. Abdomen: Soft. Extremities: Reveal weakness of the left lower extremity with some decreased weakness in the left upper extremity. LABORATORIES: Chest x-ray reveals slight increase in apical opacities but decrease in pulmonary edema. CT scan of the brain reveals old lacunar infarct in the right and left basal ganglia, but no evidence of acute disease. White blood count 16.2, hemoglobin 12.0, platelet count 180,000. Arterial blood gas on 50% Ventimask: pH of 7.49, pCO2 of 38, pO2 of 85. IMPRESSION: A 63-year-old with: 1. Lung cancer status post new FDG avid area on CT scan. 2. Small iatrogenic pneumothorax. 3. Pneumonia. 4. Seizure. 5. Acute stroke symptoms. 6. Myocardial ischemia. PLAN: 1. Extra dose of Lasix today. 2. Continue bronchial hygiene. 3. Continue Lovenox. 4. Follow up chest x-ray tomorrow. cc: MD Antonio Fischer MD
[2019-01-02] MEDS: LOPRESSOR PO SCH ×6 (02:36→21:58)
[2019-01-02] MEDS: LOVENOX SUBQ SCH ×2 (02:36→13:08)
[2019-01-02] MEDS: ZOSYN 2.25 GM in NS 50 ML IV SCH ×4 (03:19→20:29)
[2019-01-02] MEDS: DULCOLAX PR SCH ×4 (03:20→20:46)
[2019-01-02] MEDS: HUMALOG SUBQ SCH ×4 (03:20→20:29)
[2019-01-02] MEDS: DUONEB (A & A) INH SCH ×6 (03:43→23:15)
[2019-01-02 05:42] LABS: BASO# 0.01 X1000 (0.0-0.2); BASO% 0.1 % (0.0-0.8); EOS# 0.07 X1000 (0.0-0.7); EOS% 0.6 % (0.0-10.0); HEMATOCRIT 38.6 % (42.0-52.0); HEMOGLOBIN 12.6 g/dL (14.0-18.0); IMM GRAN# 0.03 X1000 (0.0-0.04); IMM GRAN% 0.2 % (0.0-0.5); LYMPH# 0.84 X1000 (1.2-3.4); LYMPH% 6.8 % (20.5-51.1); MCH 31.4 PG (27-31); MCHC 32.6 g/dL (33-37); MCV 96.3 FL (81-99); MONO# 1.13 X1000 (0.11-0.59); MONO% 9.2 % (1.7-9.3); MPV 10.7 FL (7.4-10.4); NEUT# 10.25 X1000 (1.4-6.5); NEUT% 83.1 % (42.2-75.2); PLT 189 X1000 (130-400); RBC 4.01 XMIL (4.7-6.1); RDW 13.9 % (11.5-14.5); WBC 12.33 X1000 (4.8-10.8)
[2019-01-02] MEDS: NEO-SYNEPHRINE 50 MG in NS 250 ML IV SCH (06:29)
[2019-01-02] MEDS: SYNTHROID IV SCH (06:30)
[2019-01-02] MEDS: SODIUM CHLORIDE 0.9% INJ PRN (06:31)
[2019-01-02] MEDS: DILANTIN IV SCH ×3 (06:31→21:07)
--- NOTE | 2019-01-02 07:31 | Diag Imaging Result Doc PS360 ---
EXAM: CHEST-PORTABLE HISTORY: abnormal exam TECHNIQUE: Single view COMPARISON: 01/01/2019 FINDINGS: There are dense upper lobe infiltrates. These are less pronounced than they were on the prior exam. Tiny right effusion. The heart is not enlarged. There is a tiny apical pneumothorax on the right. No change in the right sided PICC line. IMPRESSION: Interval improvement in the bilateral infiltrates. Tiny right pneumothorax remains. Electronically signed by Caleb Sabillon 01/02/2019 7:28 AM
--- NOTE | 2019-01-02 07:57 | PROGRESS NOTE ---
DATE: 01/02/2019 SUBJECTIVE: The patient seems to be stable. He is still on a clear liquid diet. I believe he can be advanced. I will ask for a swallow evaluation to evaluate this patient. Also, I have requested the nurse to stop the pressors. His blood pressure has been in the 140s and 150s. It has been that way for more than 24 hours. We will get also the MRI and MRA of the brain pending [facility]. OBJECTIVE: Vital Signs: Temperature 97.3 degrees, pulse 79, respiratory rate 22, blood pressure 141/94 and oxygen saturation 97% on a Venturi mask. HEENT: Head normocephalic. No trauma. PERRLA. Neck: Supple. No JVD. No masses. Central trachea. Chest: Coarse breath sounds bilaterally and crackles mostly at the bases. Abdomen: Soft, nontender, and nondistended. No hepatosplenomegaly. Extremities: No edema. No clubbing. No cyanosis. Neurological: The patient is alert. He is awake. He is using his right upper extremity to eat. He has left-sided weakness which is chronic, but apparently is worse compared with before. LABORATORY: WBC 12.3, hemoglobin 12.6, hematocrit 38.6, platelets 189,000, and glucose 82. ASSESSMENT AND PLAN: 1. Acute hypoxemic respiratory failure due to septic shock, bilateral pneumonia and pulmonary edema. We will continue with oxygen supplementation, IV steroids, pending a sputum culture. He is on phenylephrine, which I will stop. Blood pressure has been in the 140s and 150's for more than 24 hours. 2. Suspected takotsubo cardiomyopathy without prior known history of coronary artery disease. Cardiology Department on board. Continue beta blockers, diuretics and aspirin. 3. Recurrent generalized tonic-clonic seizure. Clinically, it looks like he has a new CVA. Pending MRI/MRA which hopefully we will do it today. 4. Encephalopathy. This is multifactorial, better. 5. Pneumonia and septic shock. I will stop the pressors. Continue with antibiotics. I have replaced the vancomycin for Zyvox due to his kidney dysfunction. 6. CKD seems to be his baseline. Pending CMP today. 7. History of recurrent lung cancer, status post CT-guided biopsy. He has small iatrogenic pneumothorax. X-ray looks a little bit better, a pneumothorax though. CRITICAL CARE TIME: 30 minutes. cc: Antonio Alarcon MD
[2019-01-02] MEDS: SYMBICORT 160/4.5 MICROGM INHALER INH SCH ×2 (08:00→19:23)
[2019-01-02 08:09] LABS: ALB/GLOB RATIO 0.8; ALBUMIN 2.8 g/dL (3.5-5.0); CREATININE 1.8 mg/dL (0.7-1.2); MAGNESIUM 1.7 mg/dL (1.5-2.7); PHOSPHORUS 2.6 mg/dL (2.7-4.5); POTASSIUM 3.4 mmol/L (3.5-5.1); TOTAL BILIRUBIN 0.52 mg/dL (0.20-1.00); TOTAL PROTEIN 6.4 g/dL (6.3-8.3)
[2019-01-02] MEDS: MIRALAX PO SCH ×2 (08:25→20:47)
[2019-01-02] MEDS: ZYVOX 600 MG/D5W 600 MG/300 ML IVPB IV SCH ×2 (08:26→19:32)
[2019-01-02] MEDS: LASIX IV SCH ×2 (08:26→20:29)
[2019-01-02] MEDS: SOLU-MEDROL IV SCH (08:26)
[2019-01-02] MEDS: VITAMIN D PO SCH (08:27)
[2019-01-02] MEDS: LIPITOR PO SCH (08:27)
[2019-01-02] MEDS: MORPHINE IV PRN ×2 (08:27→19:42)
[2019-01-02] MEDS: ASPIRIN PO SCH (08:28)
[2019-01-02] MEDS ORDERED: POTASSIUM PHOSPHATE 15 MMOL in NS 250 ML IV ONE (08:36)
[2019-01-02] MEDS: LANTUS INSULIN SUBQ SCH (08:47)
--- NOTE | 2019-01-02 10:01 | Diag Imaging Result Doc PS360 ---
EXAM: MRA BRAIN W/O CONTRAST 12/31/2018 HISTORY: Evaluate for Right hemispheric acute CVA TECHNIQUE: 3-D [id number] COMMENT: There is less visualization of distal branches in the right middle cerebral artery than on the left. There is no evidence of major branch occlusion or aneurysm. The possibility of small vessel disease particularly in the right middle cerebral territory cannot be excluded. The mid portions of the anterior cerebral arteries are not well demonstrated. This is apparently due to motion artifact. IMPRESSION: No evidence of major branch occlusion. Electronically signed by Eric Reza 01/02/2019 9:59 AM
[2019-01-02] MEDS ORDERED: STERILE WATER INJ. INJ ONE (10:24)
[2019-01-02] MEDS ORDERED: CATHFLO IV ONE (10:24)
--- NOTE | 2019-01-02 10:25 | Diag Imaging Result Doc PS360 ---
EXAM: MRI BRAIN W/O CONTRAST 12/31/2018 HISTORY: Evaluate for Right hemispheric acute CVA TECHNIQUE: T1 sagittal, axial, T2, FLAIR, DWI axial and coronal gradient echo. COMMENT: There are no previous MRI studies. There are mucus retention cysts in the right maxillary sinus. There are lacunae present in the basal ganglia particularly on the right and in both thalami. There is also a lacune adjacent to the lateral ventricle in the nick radiata region on the left. There is increased T2-weighted subcortical white matter signal in both parietal convexities and in the posterior parietal occipital region more so on the left than the right. No evidence of bleed or abnormal extra-axial fluid collection is present. There is cortical and subcortical restricted diffusion present in both parietal convexities and the posterior left hemisphere of the restricted diffusion signal is smaller in extent than the T2-weighted abnormalities. The presence of restricted diffusion in both hemispheres with suggest the possibility of emboli from the aorta or heart, or possibly watershed infarctions. IMPRESSION: Multifocal small lacunar subacute infarctions. Chronic ischemic changes as described. The findings were discussed with Dr. Valladares at 01/02/2019 10:22 AM. Electronically signed by Eric Reza 01/02/2019 10:22 AM
--- NOTE | 2019-01-02 12:47 | CONSULTATION ---
DATE OF CONSULTATION: 01/02/2019 HISTORY OF PRESENT ILLNESS: Dr. Pool saw Mr. Gonzalez earlier this week for Neurology evaluation. There is history of possible seizure with uncertain etiology. Possible explanations for seizure etiology include recent stroke, recurrent malignancy, baseline encephalopathy. He has MRI evidence of multiple small lacunar infarctions in the basal ganglia and subcortical white matter bilaterally with restricted diffusion over the posterior hemisphere bilaterally, more prominent on the left. There is reported history of lung cancer. There was question of baseline cognitive impairment. He has not had clinically apparent seizure during hospitalization. He has tolerated phenytoin 300 mg daily with level 18 on 12/30/2018. He reports to me today that he has never had prior seizure or other spell of altered awareness. In that setting, with apparent recent onset of possible seizure disorder, I would continue phenytoin short-term. I would like to see him in the office for follow-up in a few months, and will be glad to see him sooner if he has more episodes. Thanks for asking Neurology to see Mr. Gonzalez. cc: MD Antonio Gregory III, MD MTDD
--- NOTE | 2019-01-02 13:01 | CARDIOLOGY PROGRESS NOTE ---
DATE: 01/02/2019 SUBJECTIVE: Mr. Gonzalez is off of pressors. He underwent his MRI and MRA yesterday with results noted. PHYSICAL EXAMINATION: Vital Signs: He is afebrile. His heart rates continue to be somewhat elevated. He is more recently in the 90s to low 100s. His most recent blood pressure is 150/118. General: He is in no acute distress. Cardiovascular: He sounds to be in a tachycardic but regular rhythm. His current telemetry seems to show sinus rhythm. He has no murmurs. He has no S3. Extremities: He has no lower extremity edema. Chest: Coarse breath sounds somewhat diffusely. No increased work of breathing. Abdomen: Soft, nontender. PERTINENT DATA: His lab data shows a white count of 12.3, which is improving, his hematocrit is 38, his platelet count is 189,000. His sodium is 136, potassium 3.4, BUN is 36, with a creatinine of 1.8, which is improving. He had a chest x-ray today that shows an interval improvement in his bilateral infiltrates, tiny right pneumothorax continues. ASSESSMENT: Mr. Gonzalez is a 63-year-old gentleman who suffered an infarct. It appears he has bilateral infarcts based on his MRI that are small lacunar subacute infarctions. In addition, he has had a reduced ejection fraction, as well as what appears to be a possible aspiration-type pneumonia. PLAN: His cardiac issues continue to be most consistent with a Takotsubo-type phenomenon. I have increased his diuretic. We will continue him on the beta-farnaz for the time being. He is on 25 every 6 hours of metoprolol. His heart rates predominantly have been in the 70s to 80s over the last 24 hours or so. We will continue with the current course of action. cc: MD Antonio Joiner MD
[2019-01-02] MEDS: PROTONIX IV SCH (13:08)
[2019-01-02] MEDS: SODIUM CHLORIDE 0.9% INJ SCH (13:08)
[2019-01-02] MEDS: HALDOL IV PRN ×2 (13:19→22:24)
--- NOTE | 2019-01-02 14:49 | HEMO/ONC PROGRESS NOTE ---
DATE: 01/02/2019 SUBJECTIVE: Mr. Gonzalez is sitting in his hospital bed in the ICU. He is in no acute distress. OBJECTIVE: Vital Signs: Temperature 97.3 degrees, heart rate is 107, respirations 19, blood pressure 125/77, O2 saturations 97% on Venturi mask. Labs: White blood cells are 12.3, hemoglobin 12.6, platelet count is 189. Cardiovascular: On physical examination, S1 and S2 heard. Respiratory: Coarse breath sounds throughout. Gastrointestinal: Abdomen is soft with positive bowel sounds. Extremities: Some trace bilateral extremity edema. Neurologic: Patient is alert and oriented. He is no longer confused as he was a few days ago. He is able to answer questions appropriately. Speech is clearer. He is still having left- sided deficit. He has weakness on his left leg, arm and hand. ASSESSMENT AND PLAN: 1. Stage III non-small cell lung cancer. The biopsy is negative for cancer. Previously had suspected intrathoracic recurrence. We will follow up with the patient once he is released from the hospital. 2. Pneumothorax, small. This has resolved. This is after he had that lung biopsy. 3. Acute hypoxic respiratory failure. Continue current management. Close monitoring in the intensive care intensive care unit. He is also receiving nebulizer treatments, oxygen support, intravenous Lasix, intravenous steroids and intravenous antibiotics. 4. Acute congestive heart failure. Management per Cardiology. 5. Seizure activity. Neurology is on board. Further management per Neurology. 6. Clinical stroke symptoms. The patient did have a magnetic resonance imaging actually on 12/31/2018 which shows multifocal small lacunar subacute infarctions. Again, Neurology is on board. 7. Acute encephalopathy. This is improved. Patient seems like he is back to his baseline at this point. Dictated by SAMREEN Ramos for Laya Anna MD cc: MD Antonio Lawrence MD I have seen and examined the patient and the above note reflects my history, physical exam, assessment and plan. Laya CELIS
--- NOTE | 2019-01-02 19:57 | PULMONOLOGY PROGRESS NOTE ---
DATE: 01/02/2019 SUBJECTIVE: The patient is awake, alert, and conversant. The patient can now move his left lower extremity. He is without specific complaints. OBJECTIVE: Vital Signs: The patient has been afebrile for the last 24 hours. Blood pressure 137/86, heart rate 100, respirations 25, oxygen saturation 94% on 4 L per nasal cannula. HEENT: Pupils are equal and reactive. Oropharynx appears clear. Neck: Supple. Chest: Reveals faint crackles at the left base. Cardiac exam: S1, S2. Abdomen: Soft. Extremities: Without edema. LABORATORIES: Chest x-ray reveals continued improvement in pulmonary infiltrates. He has a tiny pneumothorax on the right. White blood count 12.33, hemoglobin 12.6, platelet count 189,000. Sodium 136, potassium 3.4, chloride 94, bicarbonate 22, BUN 36, creatinine 1.8. IMPRESSION: 1. A 63-year-old with lung cancer. The patient underwent a CT-guided biopsy on 12/28/2018 with benign disease identified. 2. Small iatrogenic pneumothorax. 3. Paralysis of the left lower extremity with improvement. 4. Pneumonia with improving radiograph. 5. Myocardial ischemia. PLAN: 1. Lasix dosing as per Cardiology. 2. Continue bronchial hygiene. 3. Continue Lovenox. 4. Consider transfer to the floor tomorrow if he continues to improve. cc: MD Antonio Fischer MD
[2019-01-03] MEDS: MORPHINE IV PRN ×6 (00:54→23:10)
[2019-01-03] MEDS: LOVENOX SUBQ SCH ×2 (00:56→14:09)
[2019-01-03] MEDS: LOPRESSOR PO SCH ×4 (01:04→23:12)
[2019-01-03] MEDS: HUMALOG SUBQ SCH ×4 (02:50→23:12)
[2019-01-03] MEDS: ZOSYN 2.25 GM in NS 50 ML IV SCH ×4 (02:50→23:12)
[2019-01-03] MEDS: DUONEB (A & A) INH SCH ×6 (03:37→23:00)
[2019-01-03] MEDS: DULCOLAX PR SCH ×4 (05:09→23:13)
[2019-01-03 06:09] LABS: BASO# 0.01 X1000 (0.0-0.2); BASO% 0.1 % (0.0-0.8); EOS# 0.31 X1000 (0.0-0.7); HEMATOCRIT 35.5 % (42.0-52.0); HEMOGLOBIN 11.5 g/dL (14.0-18.0); IMM GRAN# 0.05 X1000 (0.0-0.04); IMM GRAN% 0.5 % (0.0-0.5); LYMPH# 0.76 X1000 (1.2-3.4); LYMPH% 7.3 % (20.5-51.1); MCH 31.4 PG (27-31); MCHC 32.4 g/dL (33-37); MONO# 0.89 X1000 (0.11-0.59); MONO% 8.5 % (1.7-9.3); NEUT# 8.45 X1000 (1.4-6.5); NEUT% 80.6 % (42.2-75.2); PLT 159 X1000 (130-400); RBC 3.66 XMIL (4.7-6.1); RDW 13.9 % (11.5-14.5); WBC 10.47 X1000 (4.8-10.8)
[2019-01-03] MEDS: DILANTIN IV SCH ×3 (06:11→23:57)
[2019-01-03] MEDS: SYNTHROID IV SCH (06:11)
[2019-01-03] MEDS ORDERED: MAGNESIUM SULFATE 2 GM/S.W.I. 2 GM/50 ML IVPB IV ONE ×2 (07:33→08:40)
[2019-01-03] MEDS: ZYVOX 600 MG/D5W 600 MG/300 ML IVPB IV SCH ×2 (07:56→18:38)
[2019-01-03] MEDS: SOLU-MEDROL IV SCH (07:57)
--- NOTE | 2019-01-03 07:57 | PROGRESS NOTE ---
DATE: 01/03/2019 SUBJECTIVE: This patient seems to be feeling better. He is tolerating his diet. He is having bowel movements. He is moving his right upper extremity and left lower extremity more. As per the patient his left hand is not as strong as before. MRI done yesterday showed a multifocal small lacunar subacute infarction and chronic ischemic changes. For now we will need to continue with the same management. I will ask Physical Therapy and Occupational Therapy to evaluate this patient. He can be transferred to the floor. We will continue with the same management. Cardiology Department as well as Neurology, and Hematology/Oncology Department on board. OBJECTIVE: Vital Signs: Temperature 98.1 degrees, pulse 90, respiratory rate 17, blood pressure 104/61, oxygen saturation 95% on 4 L of nasal cannula. HEENT: Head normocephalic, no trauma. PERRLA. Neck: Supple. No JVD. No masses. Central trachea. Chest: Coarse breath sounds bilaterally with mild crackles at the bases. Abdomen: Soft, nontender, nondistended. No hepatosplenomegaly. Extremities: No edema, no clubbing, no cyanosis. Neurologic: The patient is alert. He is awake. He has left-sided weakness, especially his right hand, which is acute on chronic, but as per the patient, his left upper extremity is a little bit worse compared with before, I would say 3/5. LABORATORY: WBC 10.4, hemoglobin 11.5, hematocrit 35.5, platelets 159,000. Pending BMP. Glucose 162. Magnesium 1.3. ASSESSMENT AND PLAN: 1. Acute hypoxemic respiratory failure due to septic shock, bilateral pneumonia and pulmonary edema. Continue oxygen supplementation, IV steroids, pending sputum culture. He is no longer on pressors. Blood pressure has been stable. 2. Suspected takotsubo cardiomyopathy without prior known history of coronary artery disease. Cardiology Department on board. Continue with beta blockers, diuretics and aspirin. 3. Recurrent generalized tonic-clonic tonic seizure, continue with antiseizure medication. Neurology Department on board. 4. Subacute multiple lacunar strokes. That is the reason why this patient has more weakness of the left upper and lower extremities, especially the upper extremity. I will ask Occupational Therapy and Physical Therapy to work on this patient. He can be transferred to the floor. 5. Encephalopathy, multifactorial, resolved. 6. Pneumonia and septic shock, pressor has been stopped already. Continue with antibiotics. 7. CKD. This is his baseline. Pending CMP today, continue with diuretics. 8. Hypomagnesemia. I will replace it. 9. History of recurrent lung cancer, status post CT-guided biopsy with a small iatrogenic pneumothorax. We will monitor. cc: Antonio Alarcon MD
[2019-01-03 07:58] LABS: CALCIUM 8.3 mg/dL (8.8-10.2); CREATININE 2.5 mg/dL (0.7-1.2)
[2019-01-03] MEDS: LIPITOR PO SCH (08:00)
[2019-01-03] MEDS: VITAMIN D PO SCH (08:01)
[2019-01-03] MEDS: ASPIRIN PO SCH (08:01)
[2019-01-03] MEDS: LASIX IV SCH (08:02)
[2019-01-03] MEDS: MIRALAX PO SCH ×2 (08:02→23:13)
[2019-01-03] MEDS: SYMBICORT 160/4.5 MICROGM INHALER INH SCH ×2 (08:05→20:02)
[2019-01-03] MEDS: LANTUS INSULIN SUBQ SCH (09:15)
[2019-01-03] MEDS: POTASSIUM CHLORIDE 20% LIQUID PO SCH ×2 (10:23→14:21)
--- NOTE | 2019-01-03 10:41 | Diag Imaging Result Doc PS360 ---
EXAM: CHEST-PORTABLE INDICATION: pulm edema TECHNIQUE: One view COMPARISON: 01/02/2019 FINDINGS: The right PICC line is in stable position. A small right apical pneumothorax is unchanged. Interstitial infiltrates most compatible with pulmonary edema are approximately stable given slight differences in positioning. No new consolidation is identified. Cardiac silhouette is stable. IMPRESSION: Essentially stable chest. Electronically signed by Elan Rodriguez 01/03/2019 10:38 AM
--- NOTE | 2019-01-03 11:06 | EKG Report ---
Test Performed on : 01/03/2019 10:57:18 AM Test Reason : elevated troponins Blood Pressure : / mmHG Vent. Rate : 083 BPM Atrial Rate : 083 BPM P-R Int : 168 ms QRS Dur : 104 ms QT Int : 492 ms P-R-T Axes : 046 044 215 degrees QTc Int : 578 ms Critical Test Result: Long QTc Normal sinus rhythm. ST & Marked T wave abnormality, consider anterolateral ischemia Prolonged QT Abnormal ECG When compared with ECG of 01-JAN-2019 06:56, T wave inversion more evident in Anterolateral leads Confirmed by Reji Livingston MD ([id number]) on 01/03/2019 2:31:38 PM
--- NOTE | 2019-01-03 11:45 | PROGRESS NOTE ---
DATE: 01/03/2019 Mr. Gonzalez has not had clinically apparent seizure in recent days. He reports being aware that he was having a problem with earlier apparent seizure and he reports being awake, alert, and aware of generalized jerking and shaking in all limbs. He believes there was then a period of unconsciousness with memory gap. He reports this has never happened before. He has imaging evidence of recent cerebral infarction. There is a past history of lung cancer. There was question of baseline encephalopathy, which appears to be minimal. He is tolerating phenytoin. I do not have any new suggestions today. I would continue phenytoin for a few months and consider changing or stopping that depending on his clinical course. Thanks for asking Neurology to see Mr. Gonzalez. cc: MD Antonio Gregory III, MD MTDD
--- NOTE | 2019-01-03 13:22 | PULMONOLOGY PROGRESS NOTE ---
DATE: 01/03/2019 SUBJECTIVE: The patient is awake, alert and conversant. He reports he feels well. He is tolerating p.o. intake. He denies shortness of breath. OBJECTIVE: Vital Signs: The patient has been afebrile for the last 24 hours. Blood pressure 131/81, heart rate 87, respiratory rate 25, oxygen saturation 90%. HEENT: Pupils are equal and reactive. Oropharynx is clear. Neck: Neck is supple. Chest: Chest reveals prolonged expiratory phase. Cardiac exam: S1, S2. Abdomen: Soft. Extremities: Extremities are without edema. LABORATORIES/X-RAYS: Chest x-ray reveals increased markings in the right base, minimal vascular congestion, tiny right apical pneumothorax. Chest x-ray has significantly improved over the last 48 hours and probably is approaching his baseline. Sodium 137, potassium 3.0, chloride 91, bicarbonate 30. BUN 36, creatinine 2.5, glucose 112, magnesium 1.3. ProBNP has decreased to 14,169. Troponin has increased from 0.067 to 0.116. IMPRESSION: A 63-year-old status post treatment for lung cancer. He has had: 1. CT-guided biopsy 12/28/2018, which revealed inflammatory changes, but no evidence of malignancy. 2. Small iatrogenic pneumothorax. 3. Cerebral ischemia with improving weakness in the left lower extremities. 4. Pneumonia with resolution radiographically. 5. Myocardial ischemia. PLAN: 1. Anticipate transfer to the floor given continued improvement. 2. Agree with discontinuing Lasix given bump in creatinine. We will attempt to balance intake and output at this juncture. 3. Continue aspirin and Lovenox for DVT prophylaxis and myocardial ischemia. cc: MD Antonio Fischer MD
[2019-01-03] MEDS: PROTONIX IV SCH (14:09)
[2019-01-04] MEDS: LOVENOX SUBQ SCH ×2 (00:59→15:26)
[2019-01-04] MEDS: DULCOLAX PR SCH ×4 (02:17→20:14)
[2019-01-04] MEDS: HUMALOG SUBQ SCH ×4 (02:20→20:12)
[2019-01-04] MEDS: DUONEB (A & A) INH SCH ×6 (03:03→23:35)
[2019-01-04] MEDS: DILANTIN IV SCH ×3 (05:32→23:25)
[2019-01-04] MEDS: LOPRESSOR PO SCH ×4 (05:32→23:02)
[2019-01-04] MEDS: ZOSYN 2.25 GM in NS 50 ML IV SCH ×4 (05:32→23:02)
[2019-01-04 06:30] LABS: BASO# 0.02 X1000 (0.0-0.2); BASO% 0.2 % (0.0-0.8); EOS# 0.57 X1000 (0.0-0.7); EOS% 5.9 % (0.0-10.0); HEMATOCRIT 37.4 % (42.0-52.0); IMM GRAN# 0.09 X1000 (0.0-0.04); IMM GRAN% 0.9 % (0.0-0.5); LYMPH# 0.94 X1000 (1.2-3.4); LYMPH% 9.7 % (20.5-51.1); MCH 31.3 PG (27-31); MCHC 32.1 g/dL (33-37); MCV 97.4 FL (81-99); MONO# 0.83 X1000 (0.11-0.59); MONO% 8.6 % (1.7-9.3); MPV 10.8 FL (7.4-10.4); NEUT# 7.23 X1000 (1.4-6.5); NEUT% 74.7 % (42.2-75.2); PLT 198 X1000 (130-400); RBC 3.84 XMIL (4.7-6.1); RDW 13.8 % (11.5-14.5); WBC 9.68 X1000 (4.8-10.8)
[2019-01-04 06:53] LABS: MAGNESIUM 2.3 mg/dL (1.5-2.7)
[2019-01-04] MEDS: SYNTHROID IV SCH (06:53)
[2019-01-04] MEDS: SODIUM CHLORIDE 0.9% INJ PRN (06:55)
[2019-01-04] MEDS: ZYVOX 600 MG/D5W 600 MG/300 ML IVPB IV SCH ×2 (06:55→20:11)
[2019-01-04] MEDS: SYMBICORT 160/4.5 MICROGM INHALER INH SCH ×2 (07:44→20:01)
[2019-01-04 07:49] LABS: CREATININE 2.1 mg/dL (0.7-1.2); POTASSIUM 3.9 mmol/L (3.5-5.1)
[2019-01-04] MEDS: ASPIRIN PO SCH (10:28)
[2019-01-04] MEDS: SOLU-MEDROL IV SCH (10:28)
[2019-01-04] MEDS: LIPITOR PO SCH (10:29)
[2019-01-04] MEDS: MIRALAX PO SCH ×2 (10:30→20:14)
[2019-01-04] MEDS: VITAMIN D PO SCH (10:30)
[2019-01-04] MEDS: MORPHINE IV PRN ×3 (10:31→20:24)
[2019-01-04] MEDS: LANTUS INSULIN SUBQ SCH (10:43)
--- NOTE | 2019-01-04 11:15 | ECHO REPORT ---
ORDER DATE: 01/03/2019 SUMMARY: 1. A very difficult study for interpretation due to very limited acoustic window quality. 2. Dated valve is not well imaged but is sclerotic but opens adequately on 2-dimensional images. Mitral and tricuspid valves are without evidence of structural abnormality. Pulmonic valve is not seen. Aortic root is normal size. 3. Grossly normal left ventricular dimensions suggested. Estimated left ventricular ejection fraction appears to be probably around 30%. There is akinesis to mild dyskinesis of the apical septum and apex. Left atrium, right atrium, right ventricle are grossly normal in size. 4. No pericardial effusion. 5. Inferior vena cava not well demonstrated. cc: MD Sonia Silva PA Omar J. Sosa-Chirinos, MD
--- NOTE | 2019-01-04 11:35 | PROGRESS NOTE ---
DATE: 01/04/2019 SUBJECTIVE: Mr. Gonzalez reports no further seizures or episodes of altered awareness. He believes his left arm is getting stronger. He plans to be aggressive with his physical therapy. He does not have any specific complaint now. He has not noticed dizziness or drowsiness with current phenytoin dose. OBJECTIVE: He is awake, alert, attentive, appropriate, a little bit more cheerful and maybe more spontaneous with speech today. I can overcome the left arm at the deltoid grading 4/5. Tone is increased in the left arm. Visual puentes are full on gross confrontational testing by finger counting. He has good power in the foot dorsiflexion bilaterally. Facial motility is good. Tongue is midline. IMPRESSION: I do not have any new suggestions. I would continue phenytoin at current dose, and I will plan to see him as an outpatient to follow up on that. Thanks for asking Neurology to see Mr. Gonzalez. cc: MD Antonio Gregory III, MD
--- NOTE | 2019-01-04 14:55 | Diag Imaging Result Document ---
PROCEDURE NAME: MYOCARDIAL PERFU SCAN, REST - 01/03/2019 STUDY: Resting gated myocardial perfusion study. INDICATION: Dyspnea. DESCRIPTION: The patient was injected with technetium 99 sestamibi 36.9 mCi. Multiple tomographic views of the cardiac structures were obtained at rest. SUMMARY OF THE MYOCARDIAL PERFUSION PORTION OF THE STUDY: Resting tomographic views of the left ventricle showed essentially normal myocardial perfusion. There is no convincing evidence of any postexercise defect. The gated SPECT shows abnormal contractility of the apex. There is good contractility of the basal to mid segments of the left ventricle, however the apex appears to be hypokinetic. Ejection fraction by the [employer] software is 47% and by the [employer] software is 46%. The lung/heart ratio is elevated. The polar plots basically show normal myocardial perfusion. SUMMARY: 1. This resting gated myocardial perfusion study appears to be unremarkable as far as perfusion. shows: 2. Abnormal left ventricular contractility with apical hypokinesis. Ejection fraction globally appears to be good at 46%. Clinical correlation is recommended. cc: MD Sonia Oconnor PA
[2019-01-04] MEDS: SODIUM CHLORIDE 0.9% INJ SCH (15:26)
[2019-01-04] MEDS: PROTONIX IV SCH (15:26)
--- NOTE | 2019-01-04 17:41 | PROGRESS NOTE ---
DATE: 01/04/2019 SUBJECTIVE: This patient seems to be feeling better. He is tolerating his diet. He is still having shortness of breath today, mostly with minimal physical activity, but he is feeling better. Yesterday we did an electrocardiogram that showed T-wave inversions, so Cardiology Department did a stress test, but just the resting part that showed a as far as perfusion, but abnormal left ventricular contractility with apical hypokinesis, ejection fraction globally appears to be at 46%. Also, they did a limited echocardiogram that was a very difficult study for interpretation, but apparently the ejection fraction is around 30% with akinesis to mild dyskinesis of the apical septum and apex. I have requested an evaluation by the social work professor to see if this patient qualifies to go to a rehab center. Physical therapy, as well as occupational therapy on board. OBJECTIVE: Vital Signs: Temperature 97.9 degrees, pulse 86, respiratory rate 16, blood pressure 130/75, oxygen saturation 98 on 3 L of nasal cannula. HEENT: Head normocephalic, no trauma. PERRLA. Neck: Supple. No JVD. No masses. Central trachea. Chest: Coarse breath sounds bilaterally with mild crackles at the bases. Abdomen: Soft, nontender, nondistended. No hepatosplenomegaly. Extremities: No edema, no clubbing, no cyanosis. Neurological: The patient is alert. He is awake. He has left-sided weakness, especially his right hand, which is basically acute on chronic weakness. LABORATORY DATA: WBC 9.6, hemoglobin 12, hematocrit 37.4, platelet 198,000. Sodium 140, potassium 3.9, chloride 93, bicarbonate 32, BUN 32, creatinine 2.1, glucose 95, calcium 9, magnesium 2.3. ASSESSMENT AND PLAN: 1. Acute hypoxemic respiratory failure due to septic shock, bilateral pneumonia, pulmonary edema. I will continue with same management for now. We will continue with the same treatment. Blood pressure has been stable. 2. Suspected takotsubo cardiomyopathy without prior known history of coronary artery disease. It looks like his ejection fraction is somewhere between 30% and 46%. The stress test, but only the resting part, showed the possibility of an ejection fraction of 46% and the echocardiogram 30%. He does have some problems with motility at the level of the apex, some dyskinesia and/or akinesia. 3. Subacute multiple lacunar strokes, continue with same management. Continue physical therapy. Neurology department following this patient. 4. Generalized tonic colonic seizures. Continue with antiseizure medication. No more seizure for a few days. Continue with same management. 5. Encephalopathy, multifactorial, resolved. 6. Pneumonia and septic shock. Pressor has been stopped already. Continue with antibiotics though. 7. Chronic kidney disease. The BUN and creatinine increased a little bit yesterday. The Lasix has been on hold. We will just monitor. Today seems to be better. 8. Hypomagnesemia. Resolved. 9. History of recurrent lung cancer, status post CT-guided biopsy with a small iatrogenic pneumothorax, we will monitor. He seems to be stable. cc: Antonio Alarcon MD
--- NOTE | 2019-01-04 18:43 | PULMONOLOGY PROGRESS NOTE ---
DATE: 01/04/2019 SUBJECTIVE: The patient is awake, alert, and conversant. He reports his breathing is doing well. He has been ambulating in the hallway. He has a Gil catheter in place. He denies prior urinary retention issues. OBJECTIVE: Vital Signs: The patient is afebrile for the last 24 hours. Blood pressure 143/73, heart rate 87, respiratory rate 20, oxygen saturation 94% on 3 L per nasal cannula. HEENT: Pupils are equal and reactive. Oropharynx appears clear. Neck: Supple. Chest: Reveals crackles at the left base. Cardiac exam: S1-S2. Abdomen: Soft. Extremities: Without edema. LABORATORIES: No new microbiology data. Sodium 140, potassium 3.9, chloride 93, bicarbonate 32, BUN 32, creatinine 2.1. White blood count 9.68, hemoglobin 12.0, platelet count 198,000. Echocardiogram reveals significant LV dysfunction at 30%. Myocardial perfusion scan reveals no definite evidence of ischemia. IMPRESSION: A 63-year-old with 1. Acute hypoxemic respiratory failure. 2. Takotsubo cardiomyopathy. 3. Small iatrogenic pneumothorax. 4. Cerebral ischemia with improving neurologic function. 5. Abnormal PET scan with negative biopsy. PLAN: 1. Discontinue Gil catheter. 2. Wean oxygen as tolerated. He may require oxygen at discharge. 3. Okay for discharge from a pulmonary standpoint chronic. cc: MD Antonio Fischer MD
[2019-01-05] MEDS: DUONEB (A & A) INH SCH ×5 (04:04→19:03)
[2019-01-05] MEDS: DULCOLAX PR SCH ×4 (04:06→22:16)
[2019-01-05] MEDS: LOPRESSOR PO SCH ×4 (04:27→22:15)
[2019-01-05] MEDS: MORPHINE IV PRN ×3 (04:27→14:53)
[2019-01-05] MEDS: LOVENOX SUBQ SCH ×2 (04:27→13:05)
[2019-01-05] MEDS: ZOSYN 2.25 GM in NS 50 ML IV SCH ×2 (04:28→13:04)
[2019-01-05] MEDS: HUMALOG SUBQ SCH ×4 (04:28→22:17)
[2019-01-05] MEDS: DILANTIN IV SCH ×3 (06:32→22:15)
[2019-01-05] MEDS: SYNTHROID IV SCH (06:32)
[2019-01-05] MEDS: ZYVOX 600 MG/D5W 600 MG/300 ML IVPB IV SCH ×2 (06:32→07:54)
[2019-01-05] MEDS: PROTONIX PO SCH (06:32)
--- NOTE | 2019-01-05 07:23 | Diag Imaging Result Doc PS360 ---
EXAM: CHEST-PORTABLE - 01/05/2019 HISTORY: dyspnea TECHNIQUE: Portable chest COMPARISON: 01/03/2019 FINDINGS: Heart size appears mildly enlarged and mildly increased compared to prior. Mild increase in infiltrate or edema at the right base. There is no pleural effusion identified. There is a small right apical pneumothorax which appears stable. PICC remains in place. IMPRESSION: Mild cardiomegaly, with mild interval increase in heart size. Mild increase in infiltrate or edema at right base. Stable small right apical pneumothorax. Electronically signed by Anupam Reveles 01/05/2019 7:21 AM
[2019-01-05] MEDS: SYMBICORT 160/4.5 MICROGM INHALER INH SCH ×2 (07:30→19:04)
[2019-01-05 08:10] LABS: CALCIUM 9.1 mg/dL (8.8-10.2); CREATININE 2.2 mg/dL (0.7-1.2); PHOSPHORUS 3.2 mg/dL (2.7-4.5); POTASSIUM 3.8 mmol/L (3.5-5.1)
[2019-01-05] MEDS: ASPIRIN PO SCH (09:10)
[2019-01-05] MEDS: SOLU-MEDROL IV SCH (09:11)
[2019-01-05] MEDS: LIPITOR PO SCH (09:11)
[2019-01-05] MEDS: VITAMIN D PO SCH (09:11)
[2019-01-05] MEDS: MIRALAX PO SCH ×2 (09:16→22:16)
[2019-01-05] MEDS: LANTUS INSULIN SUBQ SCH (09:47)
[2019-01-05] MEDS ORDERED: LASIX PO SCH (10:00)
--- NOTE | 2019-01-05 10:20 | EKG Report ---
Test Performed on : 01/05/2019 08:23:50 AM Test Reason : abnormal EKG Blood Pressure : / mmHG Vent. Rate : 086 BPM Atrial Rate : 086 BPM P-R Int : 162 ms QRS Dur : 098 ms QT Int : 450 ms P-R-T Axes : 000 135 -35 degrees QTc Int : 538 ms Suspect arm lead reversal, interpretation assumes no reversal Normal sinus rhythm. Low voltage QRS Lateral infarct , age undetermined T wave abnormality, consider inferior ischemia T wave abnormality, consider anterior ischemia Prolonged QT Abnormal ECG When compared with ECG of 03-JAN-2019 10:57, Lateral infarct is now present T wave inversion less evident in Inferior leads T wave inversion less evident in Lateral leads Unconfirmed Result
--- NOTE | 2019-01-05 12:58 | CARDIOLOGY PROGRESS NOTE ---
DATE: 01/05/2019 CHIEF COMPLAINT: Shortness of breath, chest discomfort. SUBJECTIVE: Mr. Gonzalez seems to be doing better. He is not having any ongoing chest pain at this time. His breathing is more comfortable. Yesterday, a myocardial perfusion scan was done that shows actually pretty normal perfusion of the left ventricle with a very peculiar abnormal pattern of contractility. I did not specifically mention takotsubo on the report that I generated yesterday, however, the contractility is very consistent with that diagnosis. The ejection fraction was calculated by the computer at 46%. OBJECTIVE: Vital signs: Blood pressure 118/79, temperature 98.5, pulse 86, respirations 18. General: The patient is awake, alert, in no distress. HEENT: Unremarkable. Chest: Some scattered wheezes and rhonchi, diminished breath sounds at both bases. Heart: Sounds are regular and rhythmic. I do not hear a gallop or murmur. Abdomen: Nontender. Extremities: Showed no edema. Neurologic exam: Follows commands, weakness left upper extremity. Twelve lead EKG shows sinus rhythm with a diffuse T wave abnormality across the precordial leads. This evolution of EKG in my experience is very typical of takotsubo. LABORATORY WORK: Shows troponin levels that went up to 0.5 and then came down to 0.116. IMPRESSION: 1. Patient suffered stress-related cardiomyopathy. His EKG, his echocardiogram, and his nuclear imaging study are all very consistent with that diagnosis. 2. Possible case of underlying coronary heart disease with non-ST myocardial infarction. 3. History of lung cancer. 4. Status post acute pneumothorax iatrogenic. 5. History of lacunar stroke in the past.(left hemiparesis) 6. Chronic kidney disease. RECOMMENDATIONS: At this time, the patient appears to be clinically stable and he continues to improve. The standard management in this case is just low-dose beta-farnaz and just give him time to recuperate. I will go ahead and put him on metoprolol a very small dose and we will see if he can make it to the office as an outpatient to arrange for outpatient heart catheterization. At this time, he really wants to go home and he promised to make an appointment to see us as an outpatient. Clinically, he could be discharged tomorrow. cc: MD Antonio Oconnor MD [facility]
[2019-01-05] MEDS ORDERED: LASIX IV ONE (13:31)
--- NOTE | 2019-01-05 13:32 | PROGRESS NOTE ---
DATE: 01/05/2019 SUBJECTIVE: The patient is resting comfortably in bed. He is tolerating his diet. He feels stronger today, he is not complaining of chest pain or shortness of breath but probably he will need to go home with oxygen. We had a conversation about placement but he states that he would like to go home and get physical therapy at home or as an outpatient, Neurology Department and Pulmonary Department agree to send this patient home but this patient has a suspected takotsubo cardiomyopathy without any prior history of coronary artery disease as his ejection fraction is not normal, I discussed the case with Cardiology Department and they will talk to the patient about doing a cardiac catheterization this Monday but is up to the patient basically. OBJECTIVE: Vital Signs: Temperature 98.5 degrees, pulse 86, respiratory rate 18, blood pressure 118/79, oxygen saturation 97 on 3 L of nasal cannula. HEENT: Head normocephalic, no trauma. PERRLA. Neck: Supple. No JVD. No masses. Central trachea. Chest: Coarse breath sounds with some mild crackles at the bases. Abdomen: Soft, nontender, nondistended. No hepatosplenomegaly. Extremities: No edema, no clubbing, no cyanosis. Neurological: The patient is awake alert. He is oriented x3. He has left-sided weakness, especially his right hand which is chronic but as per the patient is worse compared with baseline. LABORATORY: Sodium 138, potassium 3.8, chloride 92, bicarbonate 30, BUN 30, creatinine 2.2, glucose 164, calcium 9.1, magnesium 2. ASSESSMENT AND PLAN: 1. Acute hypoxemic respiratory failure due to septic shock, bilateral pneumonia, pulmonary edema, continue with same management for now. I will start this patient on low dose of Lasix. Blood pressure has been stable. 2. Suspected takotsubo cardiomyopathy without prior known history of coronary artery disease. It looks like his ejection fraction is somewhere between 30% to 46%. The stress test showed the possibility of an ejection fraction of 46% and the echocardiogram 30% but the stress test that was performed was only the resting part. He does have some problem with motility at the level of the apex, some dyskinesia and/or akinesia . 3. Subacute multiple lacunar strokes. Continue with the same management, continue physical therapy. Neurology Department following this patient. 4. Generalized tonic clonic seizures. Continue with antiseizure medication. No more seizures during this hospitalization. 5. Encephalopathy resolved. 6. Pneumonia and septic shock. He has been on pressors before. Tomorrow will be day #10 of antibiotics which probably will stop. 7. Chronic kidney disease. The BUN and creatinine increased a little bit yesterday. I will put this patient back on Lasix, seems to be a little bit better. 8. Hypomagnesemia resolved. 9. History of recurrent lung cancer status post CT-guided biopsy with a small iatrogenic pneumothorax, will monitor, seems to be stable. cc: Antonio Alarcon MD
[2019-01-05] MEDS ORDERED: FLU VACCINE IM ONE (14:57)
--- NOTE | 2019-01-05 16:45 | PULMONOLOGY PROGRESS NOTE ---
DATE: 01/05/2019 SUBJECTIVE: The patient is awake, alert, and conversant. He has been ambulating in the hallway. His Gil catheter has been removed without difficulty. OBJECTIVE: The patient is awake, alert, and conversant. Blood pressure 118/79, heart rate 86, respiratory rate 18, oxygen saturation 97% on 3 L per nasal cannula.HEENT: Pupils are equal and reactive. Oropharynx is clear. Neck: Supple. Chest: Reveals good air entry bilaterally without wheezing or rhonchi. Cardiac: S1-S2. Abdomen: Soft and without hepatosplenomegaly. Extremities: Without edema. LABORATORIES: Chest x-ray reveals mild cardiomegaly with mild increased edema at the right base. He has a stable small right apical pneumothorax. IMPRESSION: A 63-year-old with 1. Acute hypoxemic respiratory failure. 2. Takotsubo cardiomyopathy with possible non Q-wave myocardial infarction. 3. Stable iatrogenic pneumothorax. 4. Cerebral ischemia with improving neurologic function. 5. Abnormal PET scan with increased activity in the right lower lobe with negative CT guided biopsy. PLAN: 1. Continue to balance intake and output. 2. Wean oxygen and evaluate for oxygen at the time of discharge. 3. Okay for discharge today or tomorrow from a pulmonary standpoint. He is followed by Dr. Carroll as an outpatient. cc: MD Antonio Fischer MD
[2019-01-05] MEDS: ZOFRAN IV PRN (18:20)
[2019-01-05] MEDS: AUGMENTIN PO SCH ×2 (22:15→22:16)
[2019-01-05] MEDS: ZYVOX PO SCH ×2 (22:15→22:16)
[2019-01-06] MEDS: DUONEB (A & A) INH SCH ×7 (01:03→23:40)
[2019-01-06] MEDS: ZOFRAN IV PRN ×3 (02:25→11:42)
[2019-01-06] MEDS: LOVENOX SUBQ SCH (02:28)
[2019-01-06] MEDS: DULCOLAX PR SCH ×3 (02:39→15:41)
[2019-01-06] MEDS: HUMALOG SUBQ SCH ×4 (03:32→21:25)
[2019-01-06 04:09] LABS: BASO# 0.03 X1000 (0.0-0.2); BASO% 0.2 % (0.0-0.8); EOS# 0.64 X1000 (0.0-0.7); HEMATOCRIT 33.9 % (42.0-52.0); HEMOGLOBIN 10.6 g/dL (14.0-18.0); IMM GRAN# 0.21 X1000 (0.0-0.04); IMM GRAN% 1.6 % (0.0-0.5); LYMPH# 1.36 X1000 (1.2-3.4); LYMPH% 10.7 % (20.5-51.1); MCH 31.1 PG (27-31); MCHC 31.3 g/dL (33-37); MCV 99.4 FL (81-99); MONO# 1.04 X1000 (0.11-0.59); MONO% 8.2 % (1.7-9.3); NEUT# 9.45 X1000 (1.4-6.5); NEUT% 74.3 % (42.2-75.2); PLT 271 X1000 (130-400); RBC 3.41 XMIL (4.7-6.1); RDW 14.1 % (11.5-14.5); WBC 12.73 X1000 (4.8-10.8)
[2019-01-06 04:23] LABS: PROTIME 13.3 Seconds (11.0-16.0)
[2019-01-06 04:24] LABS: PTT 24.6 Seconds (22.3-41.8)
[2019-01-06 04:29] LABS: CALCIUM 8.7 mg/dL (8.8-10.2); CREATININE 2.2 mg/dL (0.7-1.2); POTASSIUM 3.6 mmol/L (3.5-5.1)
[2019-01-06] MEDS: SYNTHROID IV SCH (06:27)
[2019-01-06] MEDS: SODIUM CHLORIDE 0.9% INJ SCH ×3 (06:27→21:24)
[2019-01-06] MEDS: MORPHINE IV PRN ×2 (06:27→20:08)
[2019-01-06] MEDS: LOPRESSOR PO SCH ×4 (06:28→21:25)
[2019-01-06] MEDS: DILANTIN IV SCH ×3 (06:28→21:24)
[2019-01-06] MEDS: PROTONIX PO SCH (06:29)
[2019-01-06] MEDS ORDERED: LASIX PO SCH (09:00)
--- NOTE | 2019-01-06 09:32 | EKG Report ---
Test Performed on : 01/06/2019 08:00:40 AM Test Reason : abnormal EKG Blood Pressure : / mmHG Vent. Rate : 098 BPM Atrial Rate : 098 BPM P-R Int : 152 ms QRS Dur : 106 ms QT Int : 406 ms P-R-T Axes : 063 065 031 degrees QTc Int : 518 ms Normal sinus rhythm. T wave abnormality, consider inferior ischemia T wave abnormality, consider anterior ischemia Prolonged QT Abnormal ECG When compared with ECG of 05-JAN-2019 08:23, (Unconfirmed) Criteria for Lateral infarct are no longer present Nonspecific T wave abnormality has replaced inverted T waves in Lateral leads Unconfirmed Result
[2019-01-06] MEDS: SYMBICORT 160/4.5 MICROGM INHALER INH SCH ×2 (11:26→22:32)
[2019-01-06] MEDS: AUGMENTIN PO SCH (11:38)
[2019-01-06] MEDS: LIPITOR PO SCH (11:39)
[2019-01-06] MEDS: MIRALAX PO SCH (11:39)
[2019-01-06] MEDS: ZYVOX PO SCH (11:39)
[2019-01-06] MEDS: VITAMIN D PO SCH (11:39)
[2019-01-06] MEDS: LANTUS INSULIN SUBQ SCH (11:40)
[2019-01-06] MEDS: PROTONIX IV SCH ×2 (12:21→21:23)
--- NOTE | 2019-01-06 13:04 | PROGRESS NOTE ---
DATE: 01/06/2019 SUBJECTIVE: The patient is complaining of nausea and vomiting today, and actually the vomiting is coffee-ground material. I have placed this patient on pantoprazole twice a day IV. The aspirin and Lovenox have been on hold also. Gastroenterology Department has been consulted. OBJECTIVE: Vital Signs: Temperature 98.3 degrees, pulse 110, respiratory rate 16, blood pressure 128/71, oxygen saturation 95% on 3 L of nasal cannula. HEENT: Head normocephalic. No trauma. PERRLA. Neck: Supple. No JVD. No masses. Central trachea. Chest: Coarse breath sounds with some mild crackles at the bases. Abdomen: Soft, nontender, nondistended. No hepatosplenomegaly. Extremities: No edema, no clubbing, no cyanosis. Neurological: The patient is awake. He is alert. He is oriented x3. He is having left-sided weakness, especially the right hand, which is worse than his baseline from his previous stroke. LABORATORY DATA: WBC 12.7, hemoglobin 10.6, hematocrit 33.9, platelets 271,000. Sodium 134, potassium 3.6, chloride 88, bicarbonate 29, BUN 55, creatinine 2.2, glucose 199, calcium 8.7. ASSESSMENT AND PLAN: 1. Acute hypoxemic respiratory failure due to septic shock, bilateral pneumonia, pulmonary edema. Continue with the same management for now. Pulmonary Department on board. 2. Suspected Takotsubo cardiomyopathy without prior known history of coronary artery disease. It looks like he has a low ejection fraction, somewhere between 30% and 46%. A stress test showed the possibility of an ejection fraction of 46%, and echocardiograph 30%. We did only the resting part of the stress test. He does have some problem with motility at the level of the apex, dyskinesia and/or akinesia. No chest pain at this moment. 3. Upper gastrointestinal bleed, coffee-grounds emesis. I have placed this patient on proton pump inhibitors. I stopped the aspirin and also the anticoagulation, and I have requested an evaluation by Gastroenterology Department. 4. Subacute multiple lacunar strokes. Continue with the same management. Continue physical therapy. Neurology Department following this patient. 5. Generalized tonic-clonic seizures. Continue with antiseizure medication. No more seizures during this hospitalization. 6. Encephalopathy, resolved. 7. Pneumonia and septic shock. He has been on pressors before. Today is #10 of antibiotics. Probably, I will stop. 8. Chronic kidney disease. Creatinine is about the same compared with yesterday. BUN increased from 30 to 55. He received Lasix yesterday, around 80 mg intravenously. 9. Hypomagnesemia, resolved. 10. History of recurrent lung cancer, status post CT-guided biopsy, with a small iatrogenic pneumothorax. Will monitor. Seems to be stable. cc: Antonio Alarcon MD
[2019-01-06] MEDS: PREDNISONE PO SCH (15:41)
--- NOTE | 2019-01-06 16:48 | CONSULTATION ---
DATE OF CONSULTATION: 01/06/2019 Patient seen. Detailed note will be dictated. Upper gastrointestinal bleed with history of coffee-ground emesis. I agree with PPI and stopping the aspirin. We will follow the hematocrit. Patient has multiple medical problems. We will not plan on endoscopy unless the patient has a brisk bleed. cc: MD Antonio Juarez MD
[2019-01-06] MEDS: CLINIMIX E 4.25%-5% SOLUTION 1,000 ML IV SCH (18:51)
[2019-01-06] MEDS: REGLAN IV SCH (18:52)
[2019-01-06] MEDS: ATIVAN IV PRN (22:58)
[2019-01-07] MEDS: MIRALAX PO SCH ×2 (00:17→11:16)
[2019-01-07] MEDS: DULCOLAX PR SCH ×3 (00:17→09:47)
[2019-01-07] MEDS: LOPRESSOR PO SCH ×5 (00:17→23:03)
[2019-01-07] MEDS: REGLAN IV SCH ×2 (01:47→11:04)
[2019-01-07] MEDS: FLAGYL 500 MG/NS 500 MG/100 ML IVPB IV SCH ×2 (03:19→13:33)
[2019-01-07] MEDS: HUMALOG SUBQ SCH ×3 (04:00→16:25)
[2019-01-07] MEDS: DUONEB (A & A) INH SCH ×6 (05:31→23:20)
[2019-01-07] MEDS: SYNTHROID IV SCH (06:08)
[2019-01-07] MEDS: DILANTIN IV SCH ×2 (06:08→16:25)
[2019-01-07] MEDS: SODIUM CHLORIDE 0.9% INJ SCH ×2 (06:08→11:04)
[2019-01-07] MEDS: CLINIMIX E 4.25%-5% SOLUTION 1,000 ML IV SCH (06:09)
--- NOTE | 2019-01-07 07:32 | EKG Report ---
Test Performed on : 01/07/2019 08:18:35 AM Test Reason : abnormal EKG Blood Pressure : / mmHG Vent. Rate : 094 BPM Atrial Rate : 094 BPM P-R Int : 158 ms QRS Dur : 104 ms QT Int : 306 ms P-R-T Axes : 047 064 -01 degrees QTc Int : 382 ms Normal sinus rhythm. Nonspecific T wave abnormality Abnormal ECG When compared with ECG of 06-JAN-2019 08:00, (Unconfirmed) Nonspecific T wave abnormality has replaced inverted T waves in Inferior leads T wave inversion no longer evident in Anterior leads QT has shortened Unconfirmed Result
[2019-01-07 07:42] LABS: CREATININE 2.4 mg/dL (0.7-1.2); POTASSIUM 3.4 mmol/L (3.5-5.1)
[2019-01-07 07:58] LABS: BASO# 0.03 X1000 (0.0-0.2); BASO% 0.2 % (0.0-0.8); EOS# 0.29 X1000 (0.0-0.7); HEMATOCRIT 26.4 % (42.0-52.0); HEMOGLOBIN 8.7 g/dL (14.0-18.0); IMM GRAN# 0.22 X1000 (0.0-0.04); IMM GRAN% 1.5 % (0.0-0.5); LYMPH# 0.91 X1000 (1.2-3.4); LYMPH% 6.2 % (20.5-51.1); MCH 32.2 PG (27-31); MCV 97.8 FL (81-99); MONO# 1.12 X1000 (0.11-0.59); MONO% 7.6 % (1.7-9.3); MPV 9.8 FL (7.4-10.4); NEUT# 12.08 X1000 (1.4-6.5); NEUT% 82.5 % (42.2-75.2); PLT 226 X1000 (130-400); RDW 14.4 % (11.5-14.5); WBC 14.65 X1000 (4.8-10.8)
[2019-01-07] MEDS: SYMBICORT 160/4.5 MICROGM INHALER INH SCH ×2 (08:06→19:25)
[2019-01-07] MEDS: D5 NS 1,000 ML IV SCH ×2 (08:55→13:43)
[2019-01-07] MEDS: PROTONIX IV SCH (11:04)
[2019-01-07] MEDS: VITAMIN D PO SCH (11:15)
[2019-01-07] MEDS: LIPITOR PO SCH (11:15)
[2019-01-07] MEDS: PREDNISONE PO SCH (11:15)
[2019-01-07] MEDS: MORPHINE IV PRN (13:27)
[2019-01-07] MEDS: LANTUS INSULIN SUBQ SCH (13:29)
--- NOTE | 2019-01-07 14:43 | GASTROENTEROLOGY CONSULTATION ---
DATE: 01/07/2019 REASON FOR CONSULTATION: Upper GI bleed and coffee-grounds emesis. HISTORY OF PRESENT ILLNESS: Mr. Gonzalez is a 63-year-old male who is here in the hospital with nausea, vomiting, and he mentioned that he was having some fluid in his chest. He complained of shortness of breath, fever, and chills. A bronchoscopy was done on 12/17 and it showed right hilar mass, general narrowing of the right lower lobe superior segment and 10-20% blocking mucous membrane aberrancy in the right lower lobe medial segment. CT guided lung biopsy showed successful right lower lobe biopsy complicated with small right pneumothorax. Patient developed coffee ground emesis over the weekend. GI was consulted for further management. PAST MEDICAL HISTORY: Small-cell lung cancer, diabetes, chronic kidney disease, COPD PAST SURGICAL HISTORY: Robotic pleural nephrectomy, mediastinoscopy, bronchoscopy. ALLERGIES: Levaquin. HOME MEDICATIONS: Albuterol 2 puffs, Atorvastatin 40 mg daily, glipizide 5 mg daily, iron tablet 2 tablets daily, paroxetine 10 mg daily, vitamin D3 at 1000 units daily, Nexium 20 mg daily, aspirin 325, budesonide 2 puffs, Coreg 12.5 mg twice a day, Synthroid 100 mcg daily. SOCIAL HISTORY: He is a past smoker. He has denied any alcohol or illicit drugs. FAMILY HISTORY: No significant GI malignancies. REVIEW OF SYSTEMS: As per HPI. Otherwise, 12-point review of systems is negative. PHYSICAL EXAMINATION: Vital Signs: Temperature 98.0, pulse 88, respirations 20, blood pressure 118/65, oxygen saturation 97% on room air. The patient's weight is 210 pounds. BMI is 28.7 kg/m2. General: He is alert, oriented x3, in no acute distress. HEENT: Pale conjunctivae. No icterus. PERRL. Neck: Supple. Lungs: Clear to auscultation in the anterior puentes. Cardiovascular: Regular rate and rhythm. Abdomen: Protuberant and mildly tender in periumbilical region. Active bowel sounds heard in all 4 quadrants. Extremities: No cyanosis, no clubbing, no edema. Pedal pulses 2+ present bilaterally. Neurologic: He is alert, oriented x2. Cranial nerves II through XII are grossly intact. Nonfocal. IMAGING AND LABORATORY DATA: WBC 14.65, RBC 2.70, hemoglobin 8.7, hematocrit 26.4, platelet count 226,000. Sodium 127, potassium 3.4, chloride 83, carbon dioxide 29, anion gap 15, BUN 65, creatinine 24, glucose 262, calcium 8.0. Chest x-ray showed mild cardiomegaly with mild interval increase in heart size, mild decrease in the infiltrate or edema in the right base, stable small right apical pneumothorax. Stool for Clostridium difficile antigen was positive. Stool for Clostridium difficile toxin was positive. Gastric occult blood was positive. Gastric occult blood non-feces was negative. IMPRESSION AND PLAN: Upper GI bleed Nausea/Vomiting Cardiomyopathy Seizures Chronic Kidney disease Lung cancer C-diff colitis Anemia Pneumothorax PLAN: The patient is currently on Protonix 40 mg intravenously twice a day for his GI bleed. He is on Reglan and Zofran for nausea and vomiting. He is on antibiotic Flagyl and Vancomycin for his C-diff. Patients H & H is 8.8 and 26.4, we will continue to monitor his CBC and BMP. Patient is currently receiving IV fluids D5 NS @ 50. We will monitor the patient and continue to follow the plan of care per PCP. The patient does not want any procedures at this moment. We will keep a close followup for any recurrent symptoms and may recommend EGD if continues to drop hematocrit. This plan was discussed with Dr. Lewis. Thank you for your consult, and please call us for any further questions or concerns. Dictated by ASAD Brown for Joon Lewis MD cc: MD Antonio Tripp MD I have seen and examined the patient myself and I agree with the above plan of care. I have discussed the above plan of care with the patient and all questions were answered. Please call us with any further questions. MTDD
--- NOTE | 2019-01-07 15:50 | PROGRESS NOTE ---
DATE: 01/07/2019 SUBJECTIVE: This patient at this moment is not complaining of nausea and vomiting. He has some diarrhea and yesterday he was having coffee-grounds emesis. He was started on PPIs twice a day and he was started on Reglan by the Gastroenterology Department. This patient was placed n.p.o. yesterday for the possibility of having an EGD done today. His hemoglobin did drop from 10.6 to 8.7. I will try to communicate with Gastroenterology Department to see if this patient will have the procedure done today. Otherwise, I will give him a liquid diet. We have a positive C. difficile toxin and antigen in the stool. This patient has C. difficile colitis. He has been placed on Flagyl and vancomycin p.o. He already completed the treatment for pneumonia and septic shock with 10 days of antibiotics. OBJECTIVE: Vital Signs: Temperature 98.4 degrees, pulse 74, respiratory rate 22, blood pressure 110/65, oxygen saturation 99 on 2 L of nasal cannula. HEENT: Head normocephalic. No trauma. PERRLA. Neck: Supple. No JVD. No masses. Central trachea. Chest: Some crepitus at the bases. Abdomen: Soft. Slightly distended. Positive bowel sounds. No hepatosplenomegaly. Extremities: No edema. No clubbing. No cyanosis. Neurological: This patient is alert and oriented x3. He does have some left-sided weakness, especially his right hand. LABORATORY: WBC 14.6, hemoglobin 8.7, hematocrit 26.4, platelets 226,000. Sodium 127, potassium 3.4, chloride 83, bicarbonate 29, BUN 65, creatinine 2.4, glucose 262, calcium 8. ASSESSMENT AND PLAN: 1. Acute hypoxemic respiratory failure due to septic shock, bilateral pneumonia, pulmonary edema. Treatment for this has been already stopped. He completed treatment with antibiotics. Pulmonary Department on board. 2. Suspected takotsubo cardiomyopathy without prior history of coronary artery disease. It looks like his ejection fraction is somewhere between 30 to 46%. Stress test showed the possibility of an ejection fraction of 46% and echocardiogram 30%, but we did only the resting part of the stress test. He does have some problem with motility at the level of the apex, dyskinesia and/or akinesia. No chest pain at this moment. 3. Upper gastrointestinal bleed, coffee-grounds emesis. I have placed this patient on PPIs. I stopped the aspirin and also anticoagulation. Gastroenterology Department on board. He has been placed n.p.o. today for the possibility of endoscopic exam today, but I believe the patient refused and/or it is not going to be done. I will corroborate this with Gastroenterology Department. 4. Subacute multiple lacunar strokes. Continue with same management. Continue physical therapy. Neurology Department followed already this patient. 5. Generalized tonic-clonic seizures. Continue with antiseizure medication. No more seizures for the past few days. 6. Encephalopathy, resolved. 7. Pneumonia and septic shock. Treated already and he completed 10 days of antibiotics. 8. Clostridium difficile colitis. I have started this patient on Flagyl and vancomycin. As per the patient, he has a history of C. difficile before. 9. Chronic kidney disease. Creatinine is stable. Continue to monitor. BUN increased, likely due to gastrointestinal bleed. 10. Hypomagnesemia, resolved. 11. History of recurrent lung cancer, status post CT-guided biopsy with a small iatrogenic pneumothorax. We will monitor. Stable. cc: Antonio Alarcon MD
[2019-01-07] MEDS: VANCOCIN PO SCH ×2 (16:25→23:03)
[2019-01-07] MEDS: AMBIEN PO PRN (18:59)
--- NOTE | 2019-01-07 21:02 | PULMONOLOGY PROGRESS NOTE ---
DATE: 01/07/2019 SUBJECTIVE: The patient is awake, alert, and conversant. He denies cough or shortness of breath. He has developed C difficile colitis. OBJECTIVE: HEENT: Pupils are equal, reactive. Oropharynx appears clear. Neck: Supple. Chest: Reveals crackles at the right base. Cardiac exam: S1, S2. Abdomen: Soft. Extremities: Without edema. IMPRESSION: A 63-year-old with: 1. Acute hypoxemic respiratory failure. 2. Takotsubo cardiomyopathy. 3. Iatrogenic pneumothorax. 4. Cerebral ischemia with resolving neurologic dysfunction. 5. Abnormal PET scan of the right lower lobe with negative CT-guided biopsy. 6. C difficile colitis. PLAN: 1. Continue to wean oxygen as tolerated. 2. No additional recommendations from a pulmonary standpoint. Available if needed. cc: MD Antonio Fischer MD
[2019-01-07 21:59] LABS: HEMATOCRIT 28.6 % (42.0-52.0); HEMOGLOBIN 9.1 g/dL (14.0-18.0)
[2019-01-08] MEDS: FLAGYL 500 MG/NS 500 MG/100 ML IVPB IV SCH ×5 (00:24→23:56)
[2019-01-08] MEDS: DILANTIN IV SCH (00:25)
[2019-01-08] MEDS: DULCOLAX PR SCH ×3 (00:25→20:47)
[2019-01-08] MEDS: MIRALAX PO SCH ×3 (00:26→22:29)
[2019-01-08] MEDS: PROTONIX IV SCH ×3 (00:26→22:25)
[2019-01-08] MEDS: HUMALOG SUBQ SCH ×5 (00:27→22:28)
[2019-01-08] MEDS: NORCO-5 PO PRN ×3 (00:38→15:41)
[2019-01-08] MEDS: DUONEB (A & A) INH SCH ×7 (00:57→23:13)
[2019-01-08] MEDS: VANCOCIN PO SCH ×4 (04:06→22:25)
[2019-01-08] MEDS: LOPRESSOR PO SCH ×4 (04:06→23:07)
[2019-01-08] MEDS: D5 NS 1,000 ML IV SCH (04:46)
[2019-01-08] MEDS ORDERED: DILANTIN PO SCH (06:31)
[2019-01-08] MEDS: SYNTHROID IV SCH (06:50)
[2019-01-08 07:06] LABS: BASO# 0.02 X1000 (0.0-0.2); BASO% 0.1 % (0.0-0.8); EOS# 0.13 X1000 (0.0-0.7); EOS% 0.9 % (0.0-10.0); HEMATOCRIT 26.2 % (42.0-52.0); HEMOGLOBIN 8.4 g/dL (14.0-18.0); IMM GRAN# 0.14 X1000 (0.0-0.04); LYMPH# 0.98 X1000 (1.2-3.4); LYMPH% 6.9 % (20.5-51.1); MCH 31.2 PG (27-31); MCHC 32.1 g/dL (33-37); MCV 97.4 FL (81-99); MONO# 1.08 X1000 (0.11-0.59); MONO% 7.6 % (1.7-9.3); MPV 9.5 FL (7.4-10.4); NEUT% 83.5 % (42.2-75.2); PLT 288 X1000 (130-400); RBC 2.69 XMIL (4.7-6.1); RDW 14.2 % (11.5-14.5); WBC 14.25 X1000 (4.8-10.8)
[2019-01-08 07:23] LABS: CALCIUM 8.2 mg/dL (8.8-10.2); MAGNESIUM 1.7 mg/dL (1.5-2.7); PHOSPHORUS 2.5 mg/dL (2.7-4.5); POTASSIUM 2.8 mmol/L (3.5-5.1); TOTAL BILIRUBIN 0.35 mg/dL (0.20-1.00)
[2019-01-08] MEDS: SYMBICORT 160/4.5 MICROGM INHALER INH SCH ×2 (08:13→19:20)
[2019-01-08 08:16] LABS: INR 1.03; PROTIME 13.6 Seconds (11.0-16.0)
[2019-01-08] MEDS ORDERED: NS 250 ML ONE (08:37)
[2019-01-08] MEDS: DILANTIN PO SCH ×3 (09:28→22:25)
[2019-01-08] MEDS: LIPITOR PO SCH (10:33)
[2019-01-08] MEDS: PREDNISONE PO SCH (10:34)
[2019-01-08] MEDS: SODIUM CHLORIDE 0.9% INJ SCH ×2 (10:36→22:25)
[2019-01-08] MEDS: VITAMIN D PO SCH (10:38)
[2019-01-08] MEDS ORDERED: MAGNESIUM SULFATE 2 GM/S.W.I. 2 GM/50 ML IVPB IV ONE (10:51)
[2019-01-08] MEDS: ATIVAN IV PRN (10:54)
[2019-01-08] MEDS: ZOFRAN IV PRN (10:54)
[2019-01-08] MEDS ORDERED: POTASSIUM CHLORIDE 40 MEQ/SWI 40 MEQ/100 ML IVPB IV SCH (11:30)
[2019-01-08] MEDS: LANTUS INSULIN SUBQ SCH (12:45)
--- NOTE | 2019-01-08 13:01 | PROGRESS NOTE ---
DATE: 01/08/2019 INTERVAL HISTORY: The patient still with some watery diarrhea, had 2 to 3 bowel movements this morning. He has had no further nausea or vomiting. Respiratory status approximately stable. Still requiring some oxygen. No other new complaints. REVIEW OF SYSTEMS: Twelve point review of systems negative except as per interval history. LABS: WBC 14.2, hemoglobin 8.4, hematocrit 26.2, platelets 288,000. Sodium 131, potassium 2.8, BUN 44, creatinine 2, glucose 135. VITALS: T-max 98.8 degrees, pulse 88, respirations 20, blood pressure 122/70, O2 saturation 95% on 3 L by nasal cannula. PHYSICAL EXAMINATION: General: No acute distress. Vitals: As above. HEENT: Normocephalic, atraumatic. Moist mucous membranes. No cervical adenopathy. Cardiovascular: Regular rate and rhythm. No murmurs noted. Pulmonary: Minimal bibasilar crackles, otherwise clear to auscultation. Abdomen: Soft, nontender, nondistended. Bowel sounds positive. Extremities: Peripheral pulses intact. No clubbing or cyanosis. Neurologic: Cranial nerves grossly intact. Mild hand weakness, unchanged. No new focal deficits. Psychiatric: Awake, alert, oriented x3. Skin: No new rashes or lesions identified. ASSESSMENT AND PLAN: 1. Acute hypoxemic respiratory failure secondary to pneumonia, pulmonary edema, and sepsis. Now resolved. Has finished with antibiotics. 2. Possible takotsubo cardiomyopathy, EF 30 to 40%. Patient is on a stable dose of p.o. Lasix and appears to be doing fairly well. Monitor. 3. Upper gastrointestinal bleed, coffee-grounds emesis. The patient remains on PPI. Holding anticoagulation and aspirin. GI has seen the patient, but patient did not want to pursue any procedure at this time, so they are deferring EGD for now. Continue on clear liquid diet and monitor. 4. Clostridium difficile colitis. Patient without fever, abdominal pain, but still fairly significant diarrhea. On Flagyl and oral vancomycin. If diarrhea persists, then may end up having to get Infectious Disease opinion tomorrow. 5. Subacute lacunar strokes. Deficits are fairly mild. Continue physical therapy. Monitor. Holding aspirin because of GI bleed as above. 6. Seizure disorder. Continue medication and monitor. 7. Encephalopathy, resolved. 8. Lung cancer with recurrence. The patient initially admitted for CT-guided biopsy, which was obtained. Had small right apical pneumothorax post procedure, which was still present on last check. We will repeat chest x-ray in the morning to re-evaluate his small pneumothorax. 9. Diabetes, acceptable control on current regimen. 10. CKD 3 bordering on 4. Some day-to-day variations but kidney function overall fairly stable. Monitor. cc: Antonio Alarcon MD
[2019-01-08] MEDS: POTASSIUM CHLORIDE 20 MEQ/SWI 20 MEQ/100 ML IVPB IV SCH ×2 (13:07→16:13)
--- NOTE | 2019-01-08 15:37 | CARDIOLOGY PROGRESS NOTE ---
DATE: 01/08/2019 SUBJECTIVE: Mr. Gonzalez has no complaints today. He is having some mild epigastric burning discomfort. No breathing issues. OBJECTIVE: He is afebrile. Heart rate 88. Blood pressure 122/70. In general, he is in no acute distress. Cardiovascular: He sounds to be in a regular rate and rhythm. He has no murmurs. He has no S3. No lower extremity edema. Chest sounds clear bilaterally. He has no increased work of breathing. His abdomen is soft and nontender. PERTINENT DATA: Lab aguiar, his white count is 14.2, hematocrit 26, and platelet count 288,000. His sodium is 131, potassium 2.8, BUN 44, and creatinine is 2. AST and ALT are 104 and 98 respectively with a mag of 1.7. ASSESSMENT: Mr. Gonzalez is a 63-year-old gentleman with iatrogenic pneumothorax after lung biopsy. Subsequently, he developed pneumonia and stroke-like symptoms as well as seizures and takotsubo cardiomyopathy. Most recently, he has had issues with GI bleed with coffee-ground emesis. PLAN: At this point, we will continue with cardiac medications as they are ordered. He had a resting scan performed which was consistent with a takotsubo type cardiomyopathy. His ejection fraction on that study was 46% with typical apical hypokinesis as seen with takotsubo. We will continue on beta-blockers. He is not currently on PRANAY inhibitors or ARB's recently secondary to his renal dysfunction. His blood thinners including aspirin and prophylactic Lovenox have been held due to bleeding issues. I will replete his potassium and magnesium. No further recommendations at this time. cc: MD Antonio Joiner MD
--- NOTE | 2019-01-08 19:07 | GASTROENTEROLOGY PROGRESS NOTE ---
DATE: 01/08/2019 SUBJECTIVE: Mr. Gonzalez is a 63-year-old male, resting in bed. He did complain of some diarrhea, but he has denied any nausea or vomiting. OBJECTIVE: Vital Signs: Temperature 98.7 degrees, pulse 88, respirations 20, blood pressure 120/70, oxygen saturation 95% on 3 L nasal cannula. His weight is 206 pounds. BMI is 28.0 kg/m2. General: He is alert, oriented x3, in no acute distress. HEENT: Pale conjunctivae. No icterus. PERRL. Neck supple. Lungs clear to auscultation. Cardiovascular: Regular rate and rhythm. Abdomen is protuberant, mildly tender in the periumbilical area. Active bowel sounds in all 4 quadrants. Extremities: No cyanosis, clubbing or edema. Pedal pulses 2+ present bilaterally. Neurologic: He is alert and oriented x3. LABORATORY DATA: WBCs 14.25, RBC 2.69, hemoglobin 8.4, hematocrit 26.2, platelet count is 288,000. Sodium 131, potassium 3.8, chloride 88, carbon dioxide 35, anion gap 8, BUN 44, creatinine 2.0, glucose 97, calcium 8.2, phosphorus 2.5, magnesium 1.7, total bilirubin 0.35, AST 104, ALT 98, alkaline phosphatase 75, albumin is 3.0. The patient's stool was positive for C. difficile antigen, positive for C. difficile toxin. Gastric occult blood was positive. DIAGNOSTIC DATA: Chest x-ray showed mild cardiomegaly and mild interval increase in heart size; mild increase in the infiltrate or the edema in the right base; stable small right apical pneumothorax. IMPRESSION: 1. Upper gastrointestinal bleed. 2. Nausea and vomiting. 3. Cardiomyopathy. 4. Cerebrovascular accident. 5. Chronic kidney disease. 6. Lung cancer. 7. Clostridium difficile colitis. 8. Anemia. 9. Pneumothorax. PLAN: We will continue with Protonix IV twice a day for his GI bleed. He is on Reglan and Zofran for his nausea and vomiting. He is receiving antibiotics, Flagyl and vancomycin for the C-difficile. His hemoglobin and hematocrit were 8.4 and 26.2. They have placed a new PICC line on the patient. The patient is currently receiving IV fluids, D5 normal saline at 50. We will continue to monitor his CBC, BMP, and follow the plan of care. The patient does not want any procedures at this movement. We will keep a watch on the patient for worsening of any symptoms and recommend EGD if he continues to drop the hematocrit and hemoglobin. This plan was discussed with Dr. Deluca. Please call us for any further questions or concerns. Dictated by ASAD Brown for Johny Deluca MD cc: Antonio Alarcon MD Physician Attestation I have seen and examined the patient. I have discussed and reviewed the the note by Sonia KAMARA and agree with findings and plan as documented. In brief, Mr. Kunal Gonzalez is a 63 year old man who presents to GI service with worsening anemia without overt bleeding and CDI. He had 3 episodes of diarrhea yesterday and 3 today thus far. He is on oral vancomycin and IV flagyl. He is on PPI IV BID. Stopped Miralax and bisacodyl supp ordered. Will follow with you. MTDD
[2019-01-09] MEDS: NORCO-5 PO PRN ×4 (02:28→20:28)
[2019-01-09] MEDS: D5 NS 1,000 ML IV SCH ×3 (02:50→23:36)
[2019-01-09] MEDS: DUONEB (A & A) INH SCH ×6 (03:20→23:16)
[2019-01-09] MEDS: LOPRESSOR PO SCH ×4 (04:53→22:49)
[2019-01-09] MEDS: VANCOCIN PO SCH ×4 (04:53→22:49)
[2019-01-09] MEDS: HUMALOG SUBQ SCH ×4 (04:53→20:26)
[2019-01-09] MEDS: FLAGYL 500 MG/NS 500 MG/100 ML IVPB IV SCH (06:04)
[2019-01-09] MEDS: SODIUM CHLORIDE 0.9% INJ PRN (06:05)
[2019-01-09] MEDS: SYNTHROID IV SCH (06:05)
[2019-01-09] MEDS ORDERED: BLISTEX MEDICATED BERRY LIP BALM TOP PRN (07:30)
--- NOTE | 2019-01-09 07:31 | Diag Imaging Result Doc PS360 ---
EXAM: CHEST-PORTABLE INDICATION: dyspnea TECHNIQUE: 2 views COMPARISON: 01/05/2019 FINDINGS: There has been interval removal of the right PICC line and placement of a left PICC line. The PICC line tip projecting over the lower SVC near the atriocaval junction in the expected position. The right apical pneumothorax seen on the previous study has almost completely resolved by plain radiograph. Infiltrate at the right lung base is approximately stable given differences in inspiration. No new consolidation is identified. Cardiac silhouette is stable. IMPRESSION: Interval placement of a left PICC line and decrease in size of the right apical pneumothorax to near resolution. Electronically signed by Elan Rodriguez 01/09/2019 7:28 AM
[2019-01-09 07:48] LABS: CALCIUM 7.9 mg/dL (8.8-10.2); CREATININE 1.8 mg/dL (0.7-1.2); MAGNESIUM 2.1 mg/dL (1.5-2.7); POTASSIUM 3.3 mmol/L (3.5-5.1)
[2019-01-09] MEDS: SYMBICORT 160/4.5 MICROGM INHALER INH SCH ×2 (08:26→19:48)
[2019-01-09 08:35] LABS: BASO# 0.02 X1000 (0.0-0.2); BASO% 0.2 % (0.0-0.8); EOS# 0.12 X1000 (0.0-0.7); EOS% 1.2 % (0.0-10.0); HEMATOCRIT 22.9 % (42.0-52.0); HEMOGLOBIN 7.2 g/dL (14.0-18.0); IMM GRAN# 0.19 X1000 (0.0-0.04); IMM GRAN% 1.9 % (0.0-0.5); LYMPH# 0.83 X1000 (1.2-3.4); LYMPH% 8.3 % (20.5-51.1); MCHC 31.4 g/dL (33-37); MCV 98.7 FL (81-99); MONO# 0.81 X1000 (0.11-0.59); MONO% 8.1 % (1.7-9.3); MPV 9.2 FL (7.4-10.4); NEUT# 8.05 X1000 (1.4-6.5); NEUT% 80.3 % (42.2-75.2); PLT 260 X1000 (130-400); RBC 2.32 XMIL (4.7-6.1); RDW 14.2 % (11.5-14.5); WBC 10.02 X1000 (4.8-10.8)
[2019-01-09] MEDS: LANTUS INSULIN SUBQ SCH (08:36)
[2019-01-09] MEDS: DILANTIN PO SCH ×3 (08:37→20:28)
[2019-01-09] MEDS: VITAMIN D PO SCH (08:37)
[2019-01-09] MEDS: LIPITOR PO SCH (08:37)
[2019-01-09] MEDS: PREDNISONE PO SCH (08:38)
[2019-01-09] MEDS: POTASSIUM CHLORIDE 20 MEQ/SWI 20 MEQ/100 ML IVPB IV SCH ×2 (08:39→11:08)
[2019-01-09 10:22] LABS: RETIC% 3.4 % (0.8-2.1); RETIC-HE 37.4 PG (28.2-36.6)
[2019-01-09 10:33] LABS: IRON SATURATION 28 %; TIBC 164 ug/dL; TOTAL IRON 46 ug/dL (53-167); UNBOUND IRON 118 ug/dL (112-346)
[2019-01-09] MEDS: PROTONIX IV SCH ×2 (11:08→22:54)
[2019-01-09] MEDS: SODIUM CHLORIDE 0.9% INJ SCH (11:08)
[2019-01-09 15:23] LABS: HEMATOCRIT 23.8 % (42.0-52.0); HEMOGLOBIN 7.5 g/dL (14.0-18.0)
--- NOTE | 2019-01-09 18:31 | GASTROENTEROLOGY PROGRESS NOTE ---
DATE: 01/09/2019 SUBJECTIVE: Mr. Gonzalez, a 63-year-old male, resting in bed. He denied any nausea or vomiting, and said he had couple of liquid bowel movement today. He was complaining about everything and was very arrogant when responding to questions. OBJECTIVE: Vital signs: Temperature 98.0 degrees, pulse 85, respirations 20, blood pressure 120/67, oxygen saturation 97% on 3 L nasal cannula. His weight is 206 pounds. BMI is 27.6 kg/m2.General: He is alert and oriented x3, in no acute distress. HEENT: Pale conjunctivae. No icterus. PERRL. Neck supple. Lungs clear to auscultation. Cardiovascular: Regular rate and rhythm. Abdomen is protuberant, mildly tender in the periumbilical area. Active bowel sounds heard in all 4 quadrants. Extremities: No cyanosis, clubbing or edema. Pedal pulses 2+ present bilaterally. Neurologic: He is alert and oriented x3. LABORATORY DATA: WBC 10.02, RBC 2.32, hemoglobin 7.2, hematocrit 29.9, platelet count 260,000. Sodium 133, potassium 3.3, chloride 93, carbon dioxide 39, anion gap 1, BUN 28, creatinine 1.8, glucose 151, calcium 7.9, magnesium 2.1. Chest x-ray showed interval placement of left PICC line, and decrease in the size of right apical pneumothorax to near resolution. IMPRESSION: 1. Upper gastrointestinal bleed. 2. Nausea and vomiting. 3. Cardiomyopathy. 4. Cerebrovascular accident. 5. Chronic kidney disease. 6. Lung cancer. 7. Clostridium difficile colitis. 8. Anemia. 9. Pneumothorax. PLAN: We plan to do an EGD tomorrow. We will continue the current plan of care. The patient is on Protonix 40 mg twice a day. He is receiving D5 normal saline at 50. He is on antibiotic vancomycin for his C-diff. We will continue to monitor his CBCs, BMPs and follow the plan of care per PCP. Further plan of care will be based on the EGD findings. This plan was discussed with Dr. Deluca. Please call us for any further questions or concerns. Dictated by ASAD Brown for Johny Deluca MD cc: Antonio Alarcon MD Physician Attestation I have seen and examined the patient. I have discussed and reviewed the the note by Sonia KAMARA and agree with findings and plan as documented. In brief, Mr. Kunal Gonzalez is a 63 year old man who presents to GI service with worsening anemia without overt bleeding and CDI. Diarrhea improved. Patient reports having melenic stools with worsening anemia. He is on PPI. Continue oral vancomycin. Stop IV flagyl and lovenox. Plan for diagnostic EGD with Dr. Lewis . [facility]
--- NOTE | 2019-01-09 19:33 | PROGRESS NOTE ---
DATE: 01/09/2019 INTERVAL HISTORY: Patient without obvious signs or symptom of ongoing bleeding, but blood counts continue to trend down. Discussed with the patient and he is now amenable to endoscopy if GI still wants to proceed with that. The patient's diarrhea is much improved. He has had no bowel movement so far this morning. No other acute events. No new complaints. REVIEW OF SYSTEMS: Twelve-point review of systems negative except as per interval history. LABORATORY DATA: WBC 10.0, hemoglobin 7.2, hematocrit 22.9, platelets 260,000. Sodium 133, potassium 3.3, bicarbonate 39, BUN 28, creatinine 1.8, glucose 151 to 201. Iron 46, TIBC 164, iron saturation 28, ferritin 607. DIAGNOSTIC DATA: Chest x-ray: Placement of PICC and near-resolution of right apical pneumothorax. OBJECTIVE: Vital signs: T-max 98.7 degrees, pulse 85, respirations 20, blood pressure 120/67, O2 saturation 97% on 3 L by nasal cannula. General: No acute distress.HEENT: Normocephalic, atraumatic. Moist mucous membranes. No cervical adenopathy. Cardiovascular: Regular rate and rhythm. No murmurs noted. Pulmonary: Minimal bibasilar crackles, unchanged. Otherwise clear to auscultation. Abdomen soft, nontender, nondistended. Bowel sounds positive. Extremities: Peripheral pulses intact. No clubbing or cyanosis. Neurologic: Cranial nerves grossly intact. Mild hand weakness, stable. No new focal deficits. Psychiatric: Awake, alert and oriented x3. Cooperative and conversant. Skin: No new rashes or lesions seen. ASSESSMENT AND PLAN: 1. Acute hypoxemic respiratory failure secondary to pneumonia, pulmonary edema, sepsis. Resolved; off antibiotics and stable. 2. Possible takotsubo cardiomyopathy/acute systolic chf, ejection fraction 30% to 40%. The patient on stable dose of p.o. Lasix and doing okay. 3. Upper gastrointestinal bleed, coffee-ground emesis. No further hemoptysis/coffee-ground emesis, but blood counts continue to trend down. Holding anticoagulation and aspirin. The patient initially refused scope, but is now amenable to do so. We will inform Gastroenterology and see what they say. Continue clear liquid diet for now and monitor. 4. Clostridium difficile colitis. Patient without fever or abdominal pain. Still some significant diarrhea yesterday but appears to be resolving today. No bowel movement so far this morning. Continue Flagyl and oral vancomycin. 5. Subacute lacunar stroke. Deficits fairly mild. Continue physical therapy and monitor. Holding aspirin because of gastrointestinal bleed as above. 6. Seizure disorder. No seizures here. Continue medication and monitor. 7. Encephalopathy, resolved. 8. Lung cancer with recurrence. The patient was initially admitted for biopsy, had small right apical pneumothorax post procedure, which is almost entirely resolved on most recent x-ray. Pathology on biopsy with no clear evidence of cancer. 9. Diabetes. Acceptable control on current regimen. 10. Chronic kidney disease stage 3. Creatinine actually slightly improved beyond what was thought to be the patient's likely baseline, but we will monitor labs. cc: Antonio Alarcon MD MTDD
[2019-01-09] MEDS: AMBIEN PO PRN (20:28)
--- NOTE | 2019-01-09 22:13 | CARDIOLOGY PROGRESS NOTE ---
DATE: 01/09/2019 SUBJECTIVE: Mr. Gonzalez reports no bowel movements today. He reports he is due for an EGD tomorrow. PHYSICAL EXAMINATION: Vital signs: Patient is afebrile. Heart rate of 88, blood pressure 106/53. Generally: No acute distress. Cardiovascular: He sounds to be in a regular rate and rhythm. He has no obvious murmurs. He has no S3. He has no lower extremity edema. Chest: Exam sounds clear bilaterally. He has no increased work of breathing. PERTINENT DATA: His hematocrit is 23.8 which is down from 26.2 yesterday. His platelet count is 260,000. His sodium is 133, potassium 3.3, BUN 28, creatinine is 1.8. ASSESSMENT: Mr. Gonzalez is a 63-year-old gentleman who presented with a pneumothorax. Subsequently, he developed Takotsubo-type cardiomyopathy and during this hospitalization he has had a gastrointestinal bleed. PLAN: From a cardiovascular standpoint, I will not make any further adjustments. For the time being, the patient has been continued on metoprolol. His renal function is still not normalized. We may consider adding an PRANAY inhibitor or ARB in the near future. cc: MD Antonio Joiner MD
[2019-01-10] MEDS: DUONEB (A & A) INH SCH ×6 (03:38→23:27)
[2019-01-10] MEDS: HUMALOG SUBQ SCH ×4 (03:49→21:45)
[2019-01-10] MEDS: VANCOCIN PO SCH ×4 (04:17→21:45)
[2019-01-10] MEDS: LOPRESSOR PO SCH ×3 (04:18→18:59)
--- NOTE | 2019-01-10 06:05 | PULMONOLOGY PROGRESS NOTE ---
DATE: 01/09/2019 SUBJECTIVE: The patient is awake, alert, and conversant. The patient remains on clear liquids. He has had no additional hemoptysis. OBJECTIVE: The patient is awake, alert, and conversant. He has been afebrile for the last 24 hours. Blood pressure 131/56, heart rate 81, respiratory rate 20, oxygen saturation 100% on 3 L per nasal cannula.HEENT: Pupils are equal and reactive. Oropharynx appears clear. Neck: Supple. Lungs: Chest reveals faint crackles at the right base. Cardiac: S1-S2. Abdomen: Soft. Extremities: Reveal trace edema. LABORATORIES: Chest x-ray reveals a new PICC line. The right apical pneumothorax has nearly completely resolved. IMPRESSION: A 63-year-old with the followin. Acute hypoxemic respiratory failure. 2. Iatrogenic pneumothorax with near resolution. 3. Takotsubo cardiomyopathy. 4. GI bleeding with continued slow decline in hemoglobin. 5. Cerebral edema. 6. C. Difficile colitis. 7. Status post biopsy of an FDG avid infiltrate at the right base with no malignancy identified. PLAN: 1. Continue to wean oxygen as tolerated. 2. Okay for discharge when okay for when he has been cleared from a GI standpoint. cc: MD Antonio Fischer MD
[2019-01-10] MEDS: SYNTHROID PO SCH (06:11)
[2019-01-10 08:47] LABS: BASO# 0.02 X1000 (0.0-0.2); BASO% 0.2 % (0.0-0.8); EOS# 0.13 X1000 (0.0-0.7); EOS% 1.1 % (0.0-10.0); HEMATOCRIT 25.8 % (42.0-52.0); IMM GRAN# 0.23 X1000 (0.0-0.04); LYMPH# 0.98 X1000 (1.2-3.4); LYMPH% 8.5 % (20.5-51.1); MCH 31.1 PG (27-31); MCV 100.4 FL (81-99); MONO# 0.79 X1000 (0.11-0.59); MONO% 6.8 % (1.7-9.3); NEUT# 9.41 X1000 (1.4-6.5); NEUT% 81.4 % (42.2-75.2); PLT 273 X1000 (130-400); RBC 2.57 XMIL (4.7-6.1); RDW 14.3 % (11.5-14.5); WBC 11.56 X1000 (4.8-10.8)
[2019-01-10] MEDS: SYMBICORT 160/4.5 MICROGM INHALER INH SCH ×2 (08:54→19:53)
[2019-01-10] MEDS ORDERED: DIPRIVAN 1% ONE ×2 (09:46→10:04)
[2019-01-10] MEDS ORDERED: XYLOCAINE-MPF 2% ONE (10:05)
[2019-01-10] MEDS ORDERED: VERSED ONE (10:07)
[2019-01-10 10:24] LABS: CALCIUM 7.9 mg/dL (8.8-10.2); CREATININE 1.8 mg/dL (0.7-1.2); POTASSIUM 3.6 mmol/L (3.5-5.1)
--- NOTE | 2019-01-10 10:26 | ENDOSCOPY OPERATIVE NOTE ---
[facility] ENDOSCOPY OPERATIVE NOTE , PATIENT: Kunal Gonzalez ADMISSION DATE: MR#: [id number] : 1955 EGD PROCEDURE REPORT PROCEDURE DATE: 01/10/2019 SURGEON: Joon Lewis MD STATUS: inpatient REGIONAL PROGRAM MANAGER: Maribell Coon and Kimberly Dhillon PREOPERATIVE DIAGNOSIS: The patient is a 63 yr old male here for an EGD due to Gi Bleed, Nausea, Vom iting, CHF, COPD, Anemia. PROCEDURE PERFORMED: EGD, diagnostic MEDICATIONS: Per Anesthesia TOPICAL ANESTHETIC: none CONSENT: The patient understands the risks and benefits of the procedure and understands that these r isks include, but are not limited to: sedation, allergic reaction, infection, perforation and/or bleeding. Alternative means of evaluation and treatment include, among others: physical exam, x-rays, and/or surgical intervention. The patient elects to proceed with this endoscopic procedure. HISORY AND PHYSICAL: 01/10/2019 DESCRIPTION OF PROCEDURE: During intra-op preparation period all mechanical and medical equipment was checked for proper function. Hand hygiene and appropriate measures for infection prevention was taken. After the risks, benefits and alternatives of the procedure were thoroughly explained, Informed consent was verified, confirmed and timeout was successfully executed by the treatment team. The patient was anesthetized with topical anesthesia and the FT91-i12 ([id number]) endoscope was introduced through the mouth and advanced to the second portion of the duoden um. Retroflexion was performed in the stomach and revealed a hiatal hernia and Retroflexion was performed in the stoma ch and revealed . The gastroscope was then slowly withdrawn and removed. ESOPHAGUS: Candidial esophagitis in the proximal and mid esophagus; Severe Reflux esophagitis Grade I V was noted in the distal esophagus. Sliding Hiatal hernia 3 cms was noted. STOMACH: Gastritis in the body and antrum; with no active bleeding; No ulcers noted. DUODENUM: Small non bleeding duodenal ulcer was noted in the bulb with no visible vessel or stigmata of bleeding; Normal second portion of duodenum was noted. SPECIMENS REMOVED: No ADVERSE EVENTS: There were no complications. POSTOPERATIVE DIAGNOSIS: 1. Candidial esophagitis in the proximal and mid esophagus; Severe Refl ux esophagitis Grade IV was noted in the distal esophagus. Sliding Hiatal hernia 3 cms was noted 2. Gastritis in the body and antrum; with no active bleeding; No ulcers noted 3. Small non bleeding duodenal ulcer was noted in the bulb with no visible vessel or stigmata of ble eding; Normal second portion of duodenum was noted RECOMMENDATIONS: Start Fluconazole 100 mg every day for 2 weeks Start Protonix BID for 3 months repeat EGD in 3 months Transfuse as needed. REPEAT EXAM: Return in 3 months for EGD. Joon Lewis MD eSigned: Joon Lewis MD 01/10/2019 10:26 AM cc: PATIENT NAME: Kunal Gonzalez MR#: [id number]
[2019-01-10] MEDS: VITAMIN D PO SCH (10:32)
[2019-01-10] MEDS: DILANTIN PO SCH ×3 (10:33→21:45)
[2019-01-10] MEDS: LANTUS INSULIN SUBQ SCH (10:34)
[2019-01-10] MEDS: PREDNISONE PO SCH (11:39)
[2019-01-10] MEDS: LIPITOR PO SCH (11:39)
[2019-01-10] MEDS: PROTONIX IV SCH ×2 (11:40→21:45)
[2019-01-10] MEDS: SODIUM CHLORIDE 0.9% INJ SCH ×2 (11:40→21:45)
[2019-01-10] MEDS: NORCO-5 PO PRN (11:44)
--- NOTE | 2019-01-10 14:21 | PROGRESS NOTE ---
DATE: 01/10/2019 INTERVAL HISTORY: The patient with no signs or symptoms of ongoing bleeding. Status post EGD this morning. Doing well on full liquid diet since then. No further dyspnea. No further diarrhea. REVIEW OF SYSTEMS: Twelve point review of systems negative except as per interval history. LABORATORY: WBC 11.5, hematocrit 25.8 and platelets 273,000. Sodium 136, potassium 3.6, bicarb 26, BUN 21, creatinine 1.8, glucose 119 to 201. VITALS: T-max 98.8 degrees, pulse 86, respirations 20, blood pressure 128/65, and O2 saturation 100% on 2 L by nasal cannula. PHYSICAL EXAMINATION: General: No acute distress. Vitals: As above. HEENT: Normocephalic, atraumatic. Moist mucous membranes. No cervical adenopathy. Cardiovascular: Regular rate and rhythm. No murmurs noted. Pulmonary: Bibasilar crackles. Essentially resolved. Otherwise clear to auscultation. Abdomen: Soft, nontender, nondistended. Bowel sounds positive. Extremities: Peripheral pulses intact. No clubbing or cyanosis. Neurologic: Cranial nerves grossly intact. Mild right hand weakness stable. Psychiatric: Normal mood and affect. Awake, alert, and oriented x3. Skin: No new rashes or lesions noted. ASSESSMENT AND PLAN: 1. Acute hypoxemic respiratory failure multifactorial with pneumonia, and pulmonary edema from takotsubo cardiomyopathy/acute systolic CHF and sepsis. Now, essentially resolved. Off antibiotics and stable, and essentially off oxygen as well. 2. Likely takotsubo cardiomyopathy/acute systolic congestive heart failure. EF 30 to 40. The patient doing well on stable dose of Lasix. 3. Upper gastrointestinal bleed, coffee-grounds emesis, peptic ulcer disease. The patient with no further hemoptysis or coffee-grounds emesis, but did have further drop in blood counts yesterday. Status post EGD today showing some mild gastritis, and a small duodenal ulcer which was not actively bleeding. Blood counts actually a little better this morning. We will continue b.i.d. PPI, but largely stable at this point. Diet advanced to full liquid. We will see how he does on that, and hopefully be able to advance further. 4. Clostridium difficile colitis. Patient with fever and abdominal pain, diarrhea now resolved. Continue Flagyl and oral vancomycin to finish a 2 week course. 5. Subacute lacunar strokes. Deficits pretty mild. Continue PT and monitor. Continue holding aspirin for now given gastrointestinal bleeding. 6. Seizure disorder. No seizures here. Continue home medications. 7. Encephalopathy resolved. 8. Lung cancer with likely recurrence. The patient admitted initially for biopsy. He had small right apical pneumothorax post procedure, which is almost entirely resolved on the most recent x-ray. Pathology on biopsy without clear evidence of cancer. We will repeat x-ray in the morning to confirm that pneumothorax is resolving. 9. Diabetes, acceptable control on current regimen. 10. CKD 3. Creatinine essentially stable. Monitor. 11. Disposition: The patient's blood counts are stable. If blood counts continue to remain stable as his diet is advanced, and chest x-ray in the morning looks good, then may be able to be discharged home tomorrow. cc: Antonio Alarcon MD
--- NOTE | 2019-01-10 20:56 | HEMO/ONC PROGRESS NOTE ---
DATE: 01/09/2019 (Dictated on 01/10/2019 as a late entry) SUBJECTIVE: Mr. Gonzalez is sitting up in his hospital bed. He is in no acute distress. VITAL SIGNS: Temperature 98.0 degrees, heart rate 85, respirations 20, blood pressure 120/67, O2 saturation 97% on 3 L nasal cannula. LABS: White blood cells are 10.02, hemoglobin 7.5, platelet count 260,000. Sodium 133, potassium 3.3, chloride 93, CO2 39, BUN 28, creatinine 1.8, glucose 151. PHYSICAL EXAMINATION: CV: S1, S2 heard. Respiratory: Coarse breath sounds. Gastrointestinal: Abdomen is nondistended. Extremities: He has trace bilateral extremity edema. ASSESSMENT AND PLAN: 1. Stage III nonsmall cell lung cancer, status post CT-guided lung biopsy that resulted in a small pneumothorax that has now resolved. Biopsy actually came back as negative. We will continue to follow the patient once he is out. He had suspected recurrence; is not currently on any therapy. He has also had no recent chemotherapy or radiation. 2. Respiratory failure and pneumonia, as well as cardiomyopathy and congestive heart failure and sepsis. These essentially have all resolved. Patient is off all antibiotics and stable on supplemental oxygen via nasal cannula. 3. Upper gastrointestinal bleed. Patient has been having coffeeground emesis and has a history of peptic ulcer disease. His hemoglobin is dropping. He reports to me that he has agreed to do the esophagogastroduodenoscopy, which will be done later today. We will follow up on those results. Management per Gastroenterology and the Primary team. 4. Clostridium difficile colitis. Patient continues on Flagyl and oral vancomycin for the Clostridium difficile. He is off all antibiotics for his previous pneumonia. Again, continued management per the Primary team and GI. 5. Subacute strokes. Mild deficit at this point. More prominent right after the event. The patient will continue with physical therapy. 6. Seizure. He has had no further seizures. Continue current medication. Neurology is on board. Dictated by SAMREEN Ramos for Laya Anna MD cc: MD Antonio Lawrence MD [facility]
[2019-01-10] MEDS: AMBIEN PO PRN (21:45)
[2019-01-10] MEDS: PERIDEX MT SCH (21:47)
[2019-01-11] MEDS: LOPRESSOR PO SCH ×3 (00:54→10:23)
[2019-01-11] MEDS: DUONEB (A & A) INH SCH ×3 (03:35→12:17)
[2019-01-11] MEDS: VANCOCIN PO SCH ×2 (04:58→10:19)
[2019-01-11] MEDS: HUMALOG SUBQ SCH ×2 (04:59→10:20)
[2019-01-11] MEDS: SYNTHROID PO SCH ×2 (05:56→06:43)
[2019-01-11 06:31] LABS: BASO# 0.02 X1000 (0.0-0.2); BASO% 0.2 % (0.0-0.8); EOS# 0.14 X1000 (0.0-0.7); EOS% 1.4 % (0.0-10.0); HEMATOCRIT 25.4 % (42.0-52.0); HEMOGLOBIN 7.9 g/dL (14.0-18.0); LYMPH# 1.17 X1000 (1.2-3.4); LYMPH% 11.9 % (20.5-51.1); MCH 31.3 PG (27-31); MCHC 31.1 g/dL (33-37); MCV 100.8 FL (81-99); MONO# 0.75 X1000 (0.11-0.59); MONO% 7.7 % (1.7-9.3); MPV 8.8 FL (7.4-10.4); NEUT# 7.52 X1000 (1.4-6.5); NEUT% 76.8 % (42.2-75.2); PLT 308 X1000 (130-400); RBC 2.52 XMIL (4.7-6.1); RDW 14.9 % (11.5-14.5)
[2019-01-11 06:43] LABS: CALCIUM 7.9 mg/dL (8.8-10.2); CREATININE 1.8 mg/dL (0.7-1.2); POTASSIUM 3.8 mmol/L (3.5-5.1)
--- NOTE | 2019-01-11 07:01 | Diag Imaging Result Doc PS360 ---
EXAM: CHEST-PORTABLE 01/11/2019 HISTORY: SMALL APICAL PNEUMO TECHNIQUE: AP portable at 0528 COMMENT: There is a left PICC line with its tip in the superior vena cava. There is a cavity in the right upper lobe. There is no appreciable pneumothorax. There are calcified nodes in the right hilum. There is ill-defined parahilar opacity on the right similar in appearance to the previous study of 01/09/2019. IMPRESSION: No evidence of residual pneumothorax. Electronically signed by Eric Reza 01/11/2019 6:58 AM
[2019-01-11] MEDS: NORCO-5 PO PRN (07:26)
[2019-01-11] MEDS: SYMBICORT 160/4.5 MICROGM INHALER INH SCH (07:50)
[2019-01-11 07:56] VITALS: BP 121/62
[2019-01-11] MEDS ORDERED: DIFLUCAN PO SCH (09:00)
[2019-01-11] MEDS: PERIDEX MT SCH (10:18)
[2019-01-11] MEDS: PROTONIX IV SCH (10:18)
[2019-01-11] MEDS: DILANTIN PO SCH (10:19)
[2019-01-11] MEDS: SODIUM CHLORIDE 0.9% INJ SCH (10:19)
[2019-01-11] MEDS: LIPITOR PO SCH (10:20)
[2019-01-11] MEDS: VITAMIN D PO SCH (10:20)
[2019-01-11] MEDS: PREDNISONE PO SCH (10:21)
[2019-01-11] MEDS: LANTUS INSULIN SUBQ SCH (10:28)
--- NOTE | 2019-01-11 14:19 | GASTROENTEROLOGY PROGRESS NOTE ---
DATE: 01/11/2019 SUBJECTIVE: Mr. Gonzalez 63 year old male lying in bed. Denied any nausea, vomiting or bowel movement today. OBJECTIVE: Vital signs: Temperature 98.0 degrees, pulse 88, respirations 18, blood pressure 121/62, oxygen saturation 100% on room air. His weight is 207 pounds. BMI is 28.1 kg/m2. General: He is alert and oriented x3, in no acute distress. HEENT: Pale conjunctivae. No icterus. PERRL. Neck supple. Lungs clear to auscultation. Cardiovascular: Regular rate and rhythm. Abdomen is protuberant, mildly tender. Active bowel sounds heard in all four quadrants. Extremities: No cyanosis, clubbing or edema. Pedal pulses 2+ present bilaterally. Neurologic: He is alert and oriented x3. LABORATORY DATA: WBC 9.80, RBC 2.52, hemoglobin 7.9, hematocrit 25.4, platelet count 308,000. Sodium 137, potassium 3.8, chloride 98, carbon dioxide 26, anion gap 13, BUN 19, creatinine 1.8, calcium 7.9. DIAGNOSTIC DATA: Chest x-ray showed no evidence of residual pneumothorax. IMPRESSION: 1. Upper gastrointestinal bleed. 2. Nausea and vomiting. 3. Cardiomyopathy. 4. Cerebrovascular accident. 5. Chronic kidney disease. 6. Lung cancer. 7. Clostridium difficile colitis. 8. Anemia. 9. Pneumothorax. PLAN: We did an EGD yesterday and the findings were candidal esophagitis in the proximal and mid esophagus, reflux esophagitis grade 4 in the distal esophagus, sliding hiatal hernia; stomach showed gastritis in the body and antrum, no active bleeding, no ulcers noted; in the duodenum there was a small nonbleeding ulcer noted, no visible bleeding; normal second portion of the duodenum; no biopsies were taken. Patient has been started on fluconazole. He is on GI prophylaxis Protonix IV q 12 hours. He is receiving IV fluids D5 1000 mL at 50 mL per hour. For his nausea he is on antiemetic of Zofran. The patient is supposed to get discharged today. We will continue to follow the plan of care per PCP.This plan was discussed with Dr. Deluca. Please call us for any further questions or concerns. Dictated by ASAD Brown for Johny Deluca MD cc: Antonio Alarcon MD Physician Attestation I have seen and examined the patient. I have discussed and reviewed the the note by Sonia KAMARA and agree with findings and plan as documented. He should continue PPI PO BID for 3 months. He should complete 14-day course of vancomycin for CDI. MTDD
--- NOTE | 2019-01-12 14:13 | DISCHARGE SUMMARY ---
ADMISSION DATE: 12/28/2018 DISCHARGE DATE: 01/11/2019 ADMISSION DIAGNOSES: 1. Iatrogenic right pneumothorax after needle biopsy. 2. History of lung cancer with new right lung mass. 3. Seizure activity. 4. Hypotension. DISCHARGE DIAGNOSES: 1. Acute hypoxemic respiratory failure, multifactorial with pneumonia and pulmonary edema from takotsubo cardiomyopathy, acute systolic congestive heart failure, and sepsis. 2. Takotsubo cardiomyopathy, acute systolic congestive heart failure. 3. Upper gastrointestinal bleed. 4. C. difficile colitis. 5. Subacute lacunar infarcts. 6. Seizure disorder. 7. Encephalopathy. 8. Lung cancer with recurrence. 9. Diabetes mellitus type 2. 10. Chronic kidney disease stage 3. CONSULTATIONS: 1. Ryder Fox for acute hypoxemic respiratory failure and pulmonary hematoma. 2. Dr. Pool for suspected right MCA CVA with seizure. 3. Peter Avalos for myocardial ischemia. 4. Dr. Mazariegos for GI bleed, coffee-ground emesis. 5. Laya Anna for lung cancer. 6. Dr. Frederick for post lung biopsy pneumothorax. 7. We were actually a consult by Dr. Frederick. SURGERIES OR PROCEDURES: 12/28/2018. Fine-needle aspiration biopsy of the right lower lung mass which shows pulmonary parenchyma with fibrosis, thickened basement membranes and reactive alveolar cells. He also had a bronchoscopy by Dr. Carroll on 12/17/2018, which showed the right hilar mass. This was prior to admission. On 12/28/2018, had a CT-guided biopsy of the right lower lobe and the complication was a small pneumothorax that was 7 mm in size. HOSPITAL COURSE: 12/28/2018, Dr. Frederick was contacted about Mr. Kunal Gonzalez, who had a right lower lobe lung mass biopsy by CT scan, which developed a 7 mm sized pneumothorax. He was placed on oxygen with plan to repeat an x-ray that afternoon and if he was stable, he could be discharged home. Unfortunately, a catcall had to be called on the patient while he was on the floor at 12:[address] Frederick was notified and that time we were consulted and he was transferred to the ICU. Apparently, he was unable to follow commands. He had a significant shortness of breath. He was flailing his right arm, repeating phrases, had what was thought to be a seizure-like activity. We were notified. We immediately went to the bedside. Ativan was ordered. He had low blood pressure. He was given fluids and went immediately to the ICU where he was kept. Head CT was performed that showed chronic ischemic changes on the right, nothing acute, and he was not stable enough to go for an MRI until a few days later on the where he had a brain MRI and MRA, and MRI showed multi focal small lacunar subacute infarcts. His other workup included an echocardiogram and the ejection fraction was too difficult to evaluate. There was no pericardial effusion. He had a carotid that just showed mild plaque bilaterally, and of course they repeated a chest x-ray to evaluate the pneumothorax he had. It was still stable. Right lower lobe opacity on chest x-ray, could have been from the recent biopsy or pulmonary hematoma, pulmonary edema could not be excluded and so pulmonary consult was ordered. Urology consult was ordered. Oncology was consulted, who follows him. For the seizure like activity, he was loaded with fosphenytoin and started on maintenance dosing. He had acute encephalopathy, multifactorial. He had acute hypoxemic respiratory failure secondary to the pneumothoraces biopsy. He was placed on BiPAP in the beginning. He was started on vancomycin and Zosyn. He had elevations in his troponins and there were some anterolateral ST changes so cardiology got consulted. Placed on nebulizers. Chest CT was repeated on the 29 of December, showed bibasilar pneumonia, atelectasis, and still a teeny tiny right pneumothorax. The pneumothorax never really became a significant issue. He seemed to have had some paralysis of the left lower extremity secondary to the lacunar infarcts, myocardial ischemia, elevated troponins, and abdominal x- ray showed some constipation while he was here. He had a repeat echocardiogram that finally gave an ejection fraction of 20 to 25 percent. Cardiology put him on a low-dose beta farnaz every 6 hours with likely need to pursue cardiac catheterization in the future, continued on aspirin. Echo seemed to be consistent with takotsubo type cardiomyopathy. Pulmonary aguiar, he did require BiPAP, some antibiotics for the infiltrates, diuretics for the takotsubo. He had an EEG which just essentially showed slowing. The x-ray continued to worsen. There was recommendation to do a barium swallow and make him NPO. Eventually vancomycin was changed to Zyvox due to kidney dysfunction. Eventually, everything started to return to normal. He was discharged to the floor on the [address] Mazariegos saw the patient for coffee-ground emesis. Stopped the aspirin and put him on a proton pump inhibitor. On the 10 of January, Dr. Lewis did an EGD which showed candidal esophagitis in the proximal mid esophagus, severe GERD, esophagitis, hiatal hernia, gastritis in the antrum of the body of the stomach. No ulcers. There was a small nonbleeding duodenal ulcer. He is going to be discharged home. DISCHARGE VITAL SIGNS: Temperature 98.0 degrees, heart rate 88, respiratory rate 18, blood pressure 121/62, O2 saturation on room air 100%. LAB DATA: White blood cells 9000, hemoglobin 7, hematocrit 25, platelet count 308,000. Sodium 137, potassium 3.8, BUN 19, creatinine 1.8, glucose 121, calcium 7.9. Micro: C. difficile toxin was positive. C. difficile antigen was also positive. On 01/06, the stool is positive for blood and blood cultures were negative. PERTINENT IMAGING: Chest x-ray on admit, small right apical pneumothorax. Chest x-ray on discharge, no evidence of residual pneumothorax. Lung biopsy CT, successful right lower lobe biopsy complicated by small pneumothorax. Head CT, chronic ischemic changes on the right. Carotids, mild plaque disease in the bilateral common and left internal. First echo, they could not get an EF. Second echo they got was limited and was consistent with takotsubo, had a myocardial perfusion scan on the , abnormal left ventricular contractility, apical hypokinesis. The brain MRI showed multifocal small lacunar subacute infarcts. The limited echo showed ejection fraction of 30%. DISCHARGE MEDICATIONS: 1. Glipizide 5 mg p.o. daily. 2. Integra Plus capsule 2 p.o. daily. 3. Lipitor 40 mg p.o. daily. 4. Paroxetine 10 mg p.o. daily. 5. Albuterol 2 puffs every 8 hours p.r.n. 6. Symbicort 160/4.5, 2 puffs twice daily. 7. Synthroid 100 mcg p.o. daily. 8. Vitamin D, 1000 units p.o. daily. 9. Dilantin 100 mg p.o. every 8 hours. 10. Flagyl 500 mg p.o. t.i.d. 11. Lasix 20 mg p.o. daily. 12. Lopressor 50 mg p.o. twice daily. 13. Medrol Dosepak. 14. MiraLAX 17 g p.o. twice daily. 15. Nexium 40 mg p.o. twice daily. 16. Lisinopril 5 mg p.o. daily. 17. Vancomycin 125 mg p.o. every 6 hours. PHYSICIAN FOLLOWUP: Shoshana Mazariegos Bhavsar, Seale, Arora, Najjar, Peter Avalos, Dr. Pool. Supposed to see Dr. Avalos on 01/29/2019 at 1 p.m. DISCHARGE INSTRUCTIONS: Restart aspirin 81 mg daily in 1 to 2 weeks per verbally after recheck blood count. Notify MD for fever 101 or above, shortness of breath, chest pain, vomiting of blood, coffee-ground emesis appearing material, or blood in her stool. DISCHARGE DISPOSITION: Home with home health. Dictated by ASAD Lanza for Aurelio Mi MD cc: ASAD Lanza MD Patient with complicated course. came in for biopsy of suspected lung cancer recurrence. he had pneumothorax after the procedure, then developed pneumonia and progressive hypoxia. also developed edema which was found to be related to takotsubo cardiomyopathy/acute systolic CHF. he was treated with abx and diuresis and this resolved. however he then developed diarrhea and was found to have CDIF and then had an upper GI bleed. he isnitially refused endoscopy but when H/H continued to trend down, he eventually became amenable. EGD showed small duodenal ulcer and jessica esophagitis. his diarrhea resolved and blood counts stabilized so he was finally able to be discharged. original biopsy that he came in for returned without clear evidence of cancer recurrence. MTDD
== END 2019-01-11 12:20 | disposition home or self-care (01) | DRG 199 ==
LOC: ED 10:32 → 4N 10:32 → OBSVTOIN 11:50 → SUATTDRO 11:50 → ICU 13:45 → 4N 01-03 17:27
PROVIDERS: ADMIT Internal Medicine; ATTEND Internal Medicine